=== PATIENT | female | born 1960 | race African-American/Black ===

== ENCOUNTER 2018-03-26 11:24 | Inpatient (IN) | payer MEDICARE, MEDICAID ==
[~2018-03-26] VITALS: Ht 152.4 cm; Wt 93.0 kg
[2018-03-26 11:45] VITALS: BP 105/52
--- NOTE | 2018-03-26 11:50 | NUR ---
ED Nurse Note: Patient walked into ED c/o of upper back pain due to cough, patient states taht he has been having a cough for the past 4 days and that her mucus was "dark and blood stained" patient is alert and oriented x4, ambulatory with a steady gait, vSS
--- NOTE | 2018-03-26 13:17 | Diagnostic Imaging Report ---
Indication: Dyspnea Comparison: None A single view chest radiograph was obtained. Findings: Patchy airspace opacities in the lungs noted and perihilar and basilar aspects. Heart is enlarged. There is a prominent interstitium and vascularity as well. Bones are unremarkable. Pacemaker noted on the left. IMPRESSION: Pulmonary vascular congestion demonstrated. Perihilar and basilar airspace opacities may be related to CHF or due to superimposed pneumonia. Follow-up and clinical correlation needed.
[2018-03-26] MEDS: Albuterol/Ipratropium 3ml neb HHN SCH ×4 (13:40→14:15)
[2018-03-26] MEDS ORDERED: Promethazine Plain 6.25mg/5ml ORAL ONE (14:00)
--- NOTE | 2018-03-26 15:00 | NUR ---
ED Nurse Note: Dr. Oneill aware of patient's potassium of 3.3
[2018-03-26 15:01] LABS: HEMATOCRIT 37.6 % (37.0-47.0); HEMOGLOBIN 12.4 G/DL (12.0-16.0); MEAN CORPUSCULAR VOLUME 94 FL (80-99); PLATELET COUNT 96 K/UL (150-450); RED BLOOD COUNT 3.99 M/UL (4.20-5.40); WHITE BLOOD COUNT 5.8 K/UL (4.8-10.8)
[2018-03-26 15:19] LABS: ANION GAP 11 mmol/L (5-15); BLOOD UREA NITROGEN 16 mg/dL (7-18); CALCIUM 8.6 MG/DL (8.5-10.1); CARBON DIOXIDE 25 MMOL/L (21-32); CHLORIDE 101 MMOL/L (98-107); CREATININE 1.2 MG/DL (0.55-1.30); POTASSIUM 3.3 MMOL/L (3.5-5.1); SODIUM 137 MMOL/L (136-145)
[2018-03-26 15:32] LABS: ALANINE AMINOTRANSFERASE 1404 U/L (12-78); ALBUMIN 3.4 G/DL (3.4-5.0); ALBUMIN/GLOBULIN RATIO 0.8 (1.0-2.7); ALKALINE PHOSPHATASE 136 U/L (46-116); ASPARTATE AMINO TRANSFERASE 2496 U/L (15-37); BILIRUBIN,TOTAL 0.9 MG/DL (0.2-1.0); CREATINE KINASE 274 U/L (26-308)
[2018-03-26] MEDS ORDERED: Ketorolac 30mg Inj IV ONE (15:45)
--- NOTE | 2018-03-26 16:15 | Cardiac Electrophysiology PN ---
Subjective Subjective [id number] Objective Last 24 Hour Vital Signs Date Time Temp Pulse Resp B/P (MAP) Pulse Ox O2 Delivery O2 Flow Rate FiO2 03/26/18 14:27 78 18 98 Room Air 03/26/18 14:07 74 18 96 Room Air 03/26/18 14:07 74 18 96 Room Air 03/26/18 13:52 63 18 97 Room Air 03/26/18 13:51 63 18 97 Room Air 03/26/18 13:40 63 18 96 Room Air 03/26/18 13:37 63 18 Room Air 21 03/26/18 11:50 62 18 Room Air 03/26/18 11:45 98.4 65 18 105/52 94 Room Air 03/26/18 11:43 98.4 62 18 98/51 94 Room Air Laboratory Tests Test 03/26/18 14:45 White Blood Count 5.8 K/UL (4.8-10.8) Red Blood Count 3.99 M/UL (4.20-5.40) L Hemoglobin 12.4 G/DL (12.0-16.0) Hematocrit 37.6 % (37.0-47.0) Mean Corpuscular Volume 94 FL (80-99) Mean Corpuscular Hemoglobin 31.1 PG (27.0-31.0) H Mean Corpuscular Hemoglobin Concent 33.0 G/DL (32.0-36.0) Red Cell Distribution Width 14.0 % (11.6-14.8) Platelet Count 96 K/UL (150-450) L Mean Platelet Volume 9.0 FL (6.5-10.1) Neutrophils (%) (Auto) % (45.0-75.0) Lymphocytes (%) (Auto) % (20.0-45.0) Monocytes (%) (Auto) % (1.0-10.0) Eosinophils (%) (Auto) % (0.0-3.0) Basophils (%) (Auto) % (0.0-2.0) Differential Total Cells Counted 100 Neutrophils % (Manual) 60 % (45-75) Lymphocytes % (Manual) 29 % (20-45) Monocytes % (Manual) 5 % (1-10) Eosinophils % (Manual) 2 % (0-3) Basophils % (Manual) 0 % (0-2) Band Neutrophils 4 % (0-8) Platelet Estimate Decreased L Platelet Morphology Normal Red Blood Cell Morphology Normal Sodium Level 137 MMOL/L (136-145) Potassium Level 3.3 MMOL/L (3.5-5.1) L Chloride Level 101 MMOL/L (98-107) Carbon Dioxide Level 25 MMOL/L (21-32) Anion Gap 11 mmol/L (5-15) Blood Urea Nitrogen 16 mg/dL (7-18) Creatinine 1.2 MG/DL (0.55-1.30) Estimat Glomerular Filtration Rate 56.2 mL/min (>60) Glucose Level 103 MG/DL (74-106) Calcium Level 8.6 MG/DL (8.5-10.1) Total Bilirubin 0.9 MG/DL (0.2-1.0) Aspartate Amino Transf (AST/SGOT) 2496 U/L (15-37) H Alanine Aminotransferase (ALT/SGPT) 1404 U/L (12-78) H Alkaline Phosphatase 136 U/L (46-116) H Total Creatine Kinase 274 U/L (26-308) Troponin I 0.003 ng/mL (0.000-0.056) Pro-B-Type Natriuretic Peptide 3097 pg/mL (0-125) H Total Protein 7.7 G/DL (6.4-8.2) Albumin 3.4 G/DL (3.4-5.0) Globulin 4.3 g/dL Albumin/Globulin Ratio 0.8 (1.0-2.7) Yusuf Obando MD Mar 26, 2018 16:15
--- NOTE | 2018-03-26 16:31 | Emergency Room Report ---
History of Present Illness General Chief Complaint: Upper Respiratory Illness Present Illness HPI 57-year-old female presents to the emergency department complaining of cough, wheezing, shortness of breath with history of COPD, CHF and diabetes. 8/10 in severity pain only when coughing. pt. reports chills but denies fevers. She states that she has an albuterol inhaler at home but it has not been helping. Denies LE edema. Reports mucus/sputum production. denies CP or palpitations. Allergies: Coded Allergies: CODEINE (Verified Allergy, Unknown, Itching, 03/26/18) Patient History Past Medical History: see triage record, CHF Past Surgical History: none Pertinent Family History: none Now: No Reviewed Nursing Documentation: PMH: Agreed; PSxH: Agreed Nursing Documentation-PMH Hx Hypertension: Yes Hx COPD: Yes Hx 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 Review of Systems All Other Systems: negative except mentioned in HPI Physical Exam Vital Signs Date Time Temp Pulse Resp B/P (MAP) Pulse Ox O2 Delivery O2 Flow Rate FiO2 03/26/18 11:43 98.4 62 18 98/51 94 Room Air 03/26/18 13:37 21 Sp02 EP Interpretation: reviewed, normal General Appearance: no apparent distress, alert, GCS 15, non-toxic Head: normocephalic, atraumatic Eyes: bilateral eye normal inspection, bilateral eye PERRL ENT: hearing grossly normal, normal voice Neck: full range of motion Respiratory: chest non-tender, no rhonchi, speaking full sentences, wheezing Cardiovascular #1: regular rate, rhythm, no edema, normal capillary refill Musculoskeletal: back normal, gait/station normal, normal range of motion, non- tender Neurologic: alert, oriented x3, responsive, motor strength/tone normal, sensory intact, speech normal, grossly normal Psychiatric: judgement/insight normal Skin: normal color, no rash, warm/dry, well hydrated Lymphatic: no adenopathy Medical Decision Making PA Attestation Dr. Oneill is my supervising Physician whom patient management has been discussed with. Diagnostic Impression: Primary Impression: CHF (congestive heart failure) Qualified Codes: I50.9 - Heart failure, unspecified Additional Impression: Elevated LFTs ER Course 57-year-old female presents to the emergency department complaining of cough, wheezing, shortness of breath with history of COPD, CHF and diabetes. 8/10 in severity pain only when coughing. pt. reports chills but denies fevers. She states that she has an albuterol inhaler at home but it has not been helping. Denies LE edema. Reports mucus/sputum production. denies CP or palpitations. Ddx considered but are not limited to NH, PE, atelectasis, CHF, asthma, anxiety, hyper-ventilation syndrome, pneumonia, costochondritis, chest wall pain, No acute pulmonary or cardiac causes at this time patient is in no acute distress her oxygen saturation is within normal limits, patient is not in any respiratory distress at this time Vital signs: are WNL, pt. is afebrile-- BP is on the Low end. H&PE are most consistent with: CHF VS. PNA ORDERS: - CBC: unremarkable -CMP: elevated LFT's , potassium 3.3, - BNP: elevated Troponin: WNL CK: 3097 EKG: no acute ST changes noted. -CXR: ED INTERVENTIONS: -Duo Nebs x 3 -Lasix 20mg IV Cardiology Consult DISPOSITION: at this time pt. will be admitted to for CHF Dr. Capps agreed to admit the pt. and to continue pt. care management. Labs Test 03/26/18 14:45 03/26/18 19:00 White Blood Count 5.8 K/UL (4.8-10.8) Red Blood Count 3.99 M/UL (4.20-5.40) Hemoglobin 12.4 G/DL (12.0-16.0) Hematocrit 37.6 % (37.0-47.0) Mean Corpuscular Volume 94 FL (80-99) Mean Corpuscular Hemoglobin 31.1 PG (27.0-31.0) Mean Corpuscular Hemoglobin Concent 33.0 G/DL (32.0-36.0) Red Cell Distribution Width 14.0 % (11.6-14.8) Platelet Count 96 K/UL (150-450) Mean Platelet Volume 9.0 FL (6.5-10.1) Neutrophils (%) (Auto) % (45.0-75.0) Lymphocytes (%) (Auto) % (20.0-45.0) Monocytes (%) (Auto) % (1.0-10.0) Eosinophils (%) (Auto) % (0.0-3.0) Basophils (%) (Auto) % (0.0-2.0) Differential Total Cells Counted 100 Neutrophils % (Manual) 60 % (45-75) Lymphocytes % (Manual) 29 % (20-45) Monocytes % (Manual) 5 % (1-10) Eosinophils % (Manual) 2 % (0-3) Basophils % (Manual) 0 % (0-2) Band Neutrophils 4 % (0-8) Platelet Estimate Decreased Platelet Morphology Normal Red Blood Cell Morphology Normal Prothrombin Time 12.3 SEC (9.30-11.50) Prothromb Time International Ratio 1.2 (0.9-1.1) Activated Partial Thromboplast Time 35 SEC (23-33) Sodium Level 137 MMOL/L (136-145) Potassium Level 3.3 MMOL/L (3.5-5.1) Chloride Level 101 MMOL/L (98-107) Carbon Dioxide Level 25 MMOL/L (21-32) Anion Gap 11 mmol/L (5-15) Blood Urea Nitrogen 16 mg/dL (7-18) Creatinine 1.2 MG/DL (0.55-1.30) Estimat Glomerular Filtration Rate 56.2 mL/min (>60) Glucose Level 103 MG/DL (74-106) Calcium Level 8.6 MG/DL (8.5-10.1) Total Bilirubin 0.9 MG/DL (0.2-1.0) Aspartate Amino Transf (AST/SGOT) 2496 U/L (15-37) Alanine Aminotransferase (ALT/SGPT) 1404 U/L (12-78) Alkaline Phosphatase 136 U/L (46-116) Total Creatine Kinase 274 U/L (26-308) Pro-B-Type Natriuretic Peptide 3097 pg/mL (0-125) Total Protein 7.7 G/DL (6.4-8.2) Albumin 3.4 G/DL (3.4-5.0) Globulin 4.3 g/dL Albumin/Globulin Ratio 0.8 (1.0-2.7) Troponin I 0.017 ng/mL (0.000-0.056) EKG Diagnostic Results EP Interpretation: Dr. Oneill Rate: normal - 74 Rhythm: NSR ST Segments: no acute changes ASA given to the pt in ED: No PA Scribe Text This Interpretation was scribed by LLOYD Monterroso. Chest X-Ray Diagnostic Results Chest X-Ray Diagnostic Results : Chest X-Ray Ordered: Yes # of Views/Limited/Complete: 1 View Indication: Shortness of Breath EP Interpretation: Yes PA Xray: Interpretation reviewed, by supervising MD, and agrees with findings. Interpretation: no effusion, no pneumothorax, other - interstitial infiltrates -patchy bilaterally, suggestive of CHF Impression: Other - abnormal Electronically Signed by: Grace Monterroso PA-C Last Vital Signs Date Time Temp Pulse Resp B/P (MAP) Pulse Ox O2 Delivery O2 Flow Rate FiO2 03/26/18 14:27 78 18 98 Room Air 03/26/18 13:37 21 03/26/18 11:45 98.4 105/52 Disposition: ADMITTED INPATIENT Condition: Serious Physician Consult: Soniya Referrals: NON PHYSICIAN (PCP) Grace Monterroso Mar 26, 2018 16:31
[2018-03-26 16:32] LABS: INR 1.2 (0.9-1.1)
[2018-03-26] MEDS ORDERED: Levofloxacin 750mg tab ORAL ONE (16:45)
--- NOTE | 2018-03-26 16:46 | NUR ---
NURSE NOTES: paged dr Mares re pt episodes of restlessness by removing nasal cannula and bipap mask. Per Dr Padilla notify pulmonology if they will give prn sedative or what to do with pt restlessness. Addendum: 03/26/18 at 1724 by LESA MOHAMUD RN disregard this note: wrong patient
--- NOTE | 2018-03-26 16:50 | NUR ---
ED Nurse Note: Patient's temperature was 100.0, LLOYD Edwards notified and aware
[2018-03-26 16:53] VITALS: BP 107/73
[2018-03-26] MEDS ORDERED: UNOBMED (16:57)
[2018-03-26] MEDS ORDERED: Albuterol/Ipratropium 3ml neb HHN PRN (17:00)
--- NOTE | 2018-03-26 17:00 | NUR ---
ED Nurse Note: gave report to FRIDA Phan patient was transported to tele
--- NOTE | 2018-03-26 17:24 | History and Physical ---
History of Present Illness General Date patient seen: Mar 26, 2018 Time patient seen: 17:00 Reason for Hospitalization: Upper Respiratory Illness Present Illness HPI 67-year-old female presents to the emergency department complaining of cough, productive of blood sputum, wheezing, shortness of breath with history of COPD, CHF s/p AICD, diabetes. She reports chills but denies fevers. She states that she has an albuterol inhaler at home but it has not been helping. Denies LE edema. In ED she was felt to acute CHF exacerbation and referred for admission. FHx: No premature CAD Social: Former smoker Allergies: Coded Allergies: CODEINE (Verified Allergy, Unknown, Itching, 03/26/18) Medication History Miscellaneous Medications Unable to Obtain Medications (Unable To Obtain Meds), (Reported) Patient History Healthcare decision maker Resuscitation status Advanced Directive on File Review of Systems Constitutional: Reports: chills; Denies: fever Eye: Denies: eye pain, blurred vision ENT: Denies: ear pain, ear discharge Respiratory: Reports: cough, orthopnea, shortness of breath Cardiovascular: Denies: chest pain, edema Gastrointestinal: Denies: abdominal pain, constipation Genitourinary: Denies: discharge, dysuria Musculoskeletal: Denies: back pain Skin: Denies: rash Neurological: Denies: headache, numbness Endocrine: Denies: excessive sweating Hematologic/Lymphatic: Denies: anemia Physical Exam General Appearance: no apparent distress, alert HEENT: normocephalic, atraumatic Neck: normal alignment, supple Respiratory/Chest: no respiratory distress, other - Bibasilar rales, normal work of breathing Cardiovascular/Chest: normal rate, regular rhythm, regularly irregular Abdomen: normal bowel sounds, non tender, soft Extremities: normal range of motion, non-tender Skin Exam: normal pigmentation 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, no motor/sensory deficits, alert Last 24 Hour Vital Signs Date Time Temp Pulse Resp B/P (MAP) Pulse Ox O2 Delivery O2 Flow Rate FiO2 03/26/18 16:53 100.0 75 18 107/73 98 Room Air 03/26/18 14:27 78 18 98 Room Air 03/26/18 14:07 74 18 96 Room Air 03/26/18 14:07 74 18 96 Room Air 03/26/18 13:52 63 18 97 Room Air 03/26/18 13:51 63 18 97 Room Air 03/26/18 13:40 63 18 96 Room Air 03/26/18 13:37 63 18 Room Air 21 03/26/18 11:50 62 18 Room Air 03/26/18 11:45 98.4 65 18 105/52 94 Room Air 03/26/18 11:43 98.4 62 18 98/51 94 Room Air Laboratory Tests Test 03/26/18 14:45 White Blood Count 5.8 K/UL (4.8-10.8) Red Blood Count 3.99 M/UL (4.20-5.40) L Hemoglobin 12.4 G/DL (12.0-16.0) Hematocrit 37.6 % (37.0-47.0) Mean Corpuscular Volume 94 FL (80-99) Mean Corpuscular Hemoglobin 31.1 PG (27.0-31.0) H Mean Corpuscular Hemoglobin Concent 33.0 G/DL (32.0-36.0) Red Cell Distribution Width 14.0 % (11.6-14.8) Platelet Count 96 K/UL (150-450) L Mean Platelet Volume 9.0 FL (6.5-10.1) Neutrophils (%) (Auto) % (45.0-75.0) Lymphocytes (%) (Auto) % (20.0-45.0) Monocytes (%) (Auto) % (1.0-10.0) Eosinophils (%) (Auto) % (0.0-3.0) Basophils (%) (Auto) % (0.0-2.0) Differential Total Cells Counted 100 Neutrophils % (Manual) 60 % (45-75) Lymphocytes % (Manual) 29 % (20-45) Monocytes % (Manual) 5 % (1-10) Eosinophils % (Manual) 2 % (0-3) Basophils % (Manual) 0 % (0-2) Band Neutrophils 4 % (0-8) Platelet Estimate Decreased L Platelet Morphology Normal Red Blood Cell Morphology Normal Prothrombin Time 12.3 SEC (9.30-11.50) H Prothromb Time International Ratio 1.2 (0.9-1.1) H Activated Partial Thromboplast Time 35 SEC (23-33) H Sodium Level 137 MMOL/L (136-145) Potassium Level 3.3 MMOL/L (3.5-5.1) L Chloride Level 101 MMOL/L (98-107) Carbon Dioxide Level 25 MMOL/L (21-32) Anion Gap 11 mmol/L (5-15) Blood Urea Nitrogen 16 mg/dL (7-18) Creatinine 1.2 MG/DL (0.55-1.30) Estimat Glomerular Filtration Rate 56.2 mL/min (>60) Glucose Level 103 MG/DL (74-106) Calcium Level 8.6 MG/DL (8.5-10.1) Total Bilirubin 0.9 MG/DL (0.2-1.0) Aspartate Amino Transf (AST/SGOT) 2496 U/L (15-37) H Alanine Aminotransferase (ALT/SGPT) 1404 U/L (12-78) H Alkaline Phosphatase 136 U/L (46-116) H Total Creatine Kinase 274 U/L (26-308) Troponin I Pending Pro-B-Type Natriuretic Peptide 3097 pg/mL (0-125) H Total Protein 7.7 G/DL (6.4-8.2) Albumin 3.4 G/DL (3.4-5.0) Globulin 4.3 g/dL Albumin/Globulin Ratio 0.8 (1.0-2.7) L Height (Feet): 5 Weight (Pounds): 205 Medications Current Medications Medications (Trade) Dose Ordered Sig/Arvind Route PRN Reason Start Time Stop Time Status Last Admin Dose Admin Albuterol/ Ipratropium (Albuterol/ Ipratropium) 3 ml Q4H PRN HHN Shortness of Breath 03/26/18 17:00 03/31/18 16:59 Carvedilol (Coreg) 3.125 mg EVERY 12 HOURS ORAL 03/26/18 21:00 04/25/18 20:59 Dextrose (Dextrose 50%) 25 ml Q30M PRN IV Hypoglycemia 03/26/18 17:00 04/25/18 16:59 Dextrose (Dextrose 50%) 50 ml Q30M PRN IV Hypoglycemia 03/26/18 17:00 04/25/18 16:59 Furosemide (Lasix) 40 mg EVERY 12 HOURS IV 03/26/18 21:00 04/25/18 20:59 Lisinopril (Zestril) 10 mg DAILY ORAL 03/27/18 09:00 04/26/18 08:59 Spironolactone (Aldactone) 25 mg DAILY ORAL 03/27/18 09:00 04/26/18 08:59 Assessment/Plan Assessment/Plan #Acute on chronic systolic CHF admit to medical service, telemetry Cardiology eval appreciated Lasix IV Coreg Aldactone monitor I&O Daily weights 2 gram sodium diet check TTE #Mild hypokalemia -monitor electrolytes while on #Abnormal LFTs #Suspected congestive hepatopathy -monitor LFTs -avoid hepatotoxic meds #Morbid Obesity #Reported history of DMII -Awaiting med recon -start ISS for now -Diabetic diet VTE PPx heparin SC Full Code Time spent was 75 minutes for admitting the patient, 35 minutes in face to face time with the patient Declan Crespo MD Mar 26, 2018 17:24
--- NOTE | 2018-03-26 17:24 | NUR ---
NURSE NOTES: received pt awake alert, no distress. no sob. denies pain. per pt her medical hx is htn, cva, defibrillator, pt denies hx of cancer or diabetes. pt does not remember meds but says her daughter will bring them. relayed to Dr Mullins (upon his rounds) re pt denies having DM and that her blood glucose level (lab) is wnl. ambulatory, sacral is intact.
--- NOTE | 2018-03-26 17:26 | NUR ---
NURSE NOTES: pt refuses flu vaccine and states that she is due for pna vaccine - relayed to Dr Mullins who said "we'll deal with it later , it's not urgent right now"
--- NOTE | 2018-03-26 18:09 | Cardiology Report ---
APPROVED REPORT EXAM: Two-dimensional and M-mode echocardiogram with Doppler and color Doppler. INDICATION Congestive Heart Failure Normal left ventricular chamber size, systolic function and wall motion. Left ventricular ejection fraction estimated to be 55-60 %. Borderline left ventricular hypertrophy by -2D. No evidence of pericardial effusion. Mild left atrial enlargement. Right cardiac chamber sizes are within normal limits. Focal aortic valve sclerosis with adequate cusp excursion. Thickened mitral valve leaflets with normal excursion. Mitral annulus and aortic root calcification. Pulmonic valve not well visualized. Normal tricuspid valve structure. IVC at normal size with physiologic collapse. A color flow and spectral Doppler study was performed and revealed: Mild mitral regurgitation. Mitral inflow indicates normal left ventricular diastolic function. Mild tricuspid regurgitation. Tricuspid systolic velocities suggests peak right ventricular systolic pressure of 39 mmHg, consistent with mild pulmonary hypertension.
--- NOTE | 2018-03-26 18:45 | Consultation ---
DATE OF CONSULTATION: 03/26/2018 CARDIOLOGY CONSULTATION CONSULTING PHYSICIAN: Yusuf Byrnes M.D. REFERRING PHYSICIAN: Elizabet Capps M.D. REASON FOR CONSULTATION: Exacerbation of congestive heart failure as well as shortness of breath and evaluation of the patient's defibrillator. HISTORY OF PRESENT ILLNESS: The patient is a 57-year-old -[place] lady with history of hypertension, congestive heart failure, and history of pulmonary embolism, who was on blood thinner in the past as well as history of defibrillator implantation about a year ago at [facility] in [place]. The patient presented to the emergency room for increasing shortness of breath and cough. The patient stated that she also is having hemoptysis. The patient was admitted and Cardiology consultation was requested for further evaluation and management. At the time of my evaluation, the patient is short of breath. REVIEW OF SYSTEMS: Review of systems was negative other than what is mentioned in the history of present illness. PAST MEDICAL HISTORY: As mentioned above. FAMILY HISTORY: Noncontributory. SOCIAL HISTORY: Does not smoke or drink alcohol. PHYSICAL EXAMINATION: VITAL SIGNS: Blood pressure of 105/52, pulse 65, and respirations 18. HEAD AND NECK: Shows mild JVD. LUNGS: Decreased breath sounds. CARDIOVASCULAR: Shows regular S1 and S2 with no gallop. ABDOMEN: Soft. EXTREMITIES: Trace pitting edema. Defibrillator in left subclavian. DIAGNOSTIC DATA: Her EKG shows sinus rhythm with nonspecific ST-T wave abnormalities. LABORATORY DATA: Labs show white count of 5.8, hemoglobin 12.4, hematocrit 37.2, and platelet count 96,000. Sodium 137, potassium 3.7, BUN of 16, creatinine 1.2, and glucose of 103. AST is 2500 and ALT is 1400. Alk phos is 136. Troponin is negative. BNP is more than 3000. ASSESSMENT AND PLAN: 1. Exacerbation of congestive heart failure. BNP of more than 3000. We will get an echocardiogram for ejection fraction and wall motion abnormality. We will start the patient on Lasix 40 mg IV b.i.d. until further information is available. 2. Status post defibrillator implantation. The patient does not know the brand of the defibrillator. We will try to find the brand and interrogate the ICD for further evaluation. 3. Cough and hemoptysis. The patient stated that she was on blood thinner, but she is not sure. She is a very poor historian. The patient stated that she used to take warfarin in the past. We do not have the INR on admission yet. I would . 4. elevated AST and ALT in the thousands. Hepatitis panel is pending, but could be secondary to hepatic congestion and secondary to congestive heart failure. 5. Possible pneumonia. The patient's temperature is 98.4. White count is within normal range. Thank you very much for allowing me to participate in the care of this patient. Please do not hesitate to contact me for any questions regarding my evaluation. Yusuf Byrnes M.D. DR: AZALIA JOB#: [id number] CC:
--- NOTE | 2018-03-26 19:38 | NUR ---
HAND-OFF: Report given to LEROY GALICIA.
--- NOTE | 2018-03-26 19:40 | NUR ---
NURSE NOTES: Got report from Sylvester GALICIA. Pt in stable condition. Denies any pain. No s/s of distress or discomfort noted. Pt resting in bed comfortably. Bed in low and locked position call light within reach, bedside table within reach. continue to monitor.
[2018-03-26 20:00] VITALS: BP 105/57
[2018-03-26] MEDS: NovoLOG Insulin Flexpen SUBQ SCH (21:00)
[2018-03-27] MEDS: traMADol 50mg tab ORAL PRN ×2 (00:28→10:04)
[2018-03-27 00:43] VITALS: BP 111/72
[2018-03-27 03:50] LABS: HEMATOCRIT 35.9 % (37.0-47.0); HEMOGLOBIN 12.2 G/DL (12.0-16.0); MEAN CORPUSCULAR VOLUME 93 FL (80-99); PLATELET COUNT 93 K/UL (150-450); RED BLOOD COUNT 3.87 M/UL (4.20-5.40); WHITE BLOOD COUNT 3.2 K/UL (4.8-10.8)
[2018-03-27 03:59] LABS: INR 1.3 (0.9-1.1)
[2018-03-27 04:35] LABS: ALANINE AMINOTRANSFERASE 2117 U/L (12-78); ALBUMIN 3.1 G/DL (3.4-5.0); ALBUMIN/GLOBULIN RATIO 0.7 (1.0-2.7); ALKALINE PHOSPHATASE 142 U/L (46-116); ANION GAP 9 mmol/L (5-15); ASPARTATE AMINO TRANSFERASE 1743 U/L (15-37); BLOOD UREA NITROGEN 23 mg/dL (7-18); CALCIUM 8.6 MG/DL (8.5-10.1); CARBON DIOXIDE 28 MMOL/L (21-32); CHLORIDE 102 MMOL/L (98-107); CHOLESTEROL 159 MG/DL (< 200); CREATININE 1.3 MG/DL (0.55-1.30); HDL CHOLESTEROL 78 MG/DL (40-60); POTASSIUM 3.4 MMOL/L (3.5-5.1); SODIUM 138 MMOL/L (136-145); TRIGLYCERIDES 38 MG/DL (30-150)
[2018-03-27 04:52] VITALS: BP 108/62
[2018-03-27] MEDS ORDERED: LORazepam 1mg tab ORAL ONE (05:30)
[2018-03-27] MEDS: NovoLOG Insulin Flexpen SUBQ SCH ×4 (06:00→21:00)
--- NOTE | 2018-03-27 07:36 | NUR ---
NURSE NOTES: Received bedside report from Cecilio GALICIA. Pt. in bed, awake, a/o x 4. No sign of distress. Denies pain at present. IV at right hand #[id number]. in placed SL. Bed in low position, locked. Call light within reach. Will cont. to monitor.
--- NOTE | 2018-03-27 07:40 | NUR ---
HAND-OFF: Report given to Jodi Alexander. Endorsed plan of care.
[2018-03-27 08:00] VITALS: BP 102/58
[2018-03-27] MEDS: Lisinopril 10mg tab ORAL SCH (09:00)
[2018-03-27] MEDS: Spironolactone 25mg tab ORAL SCH (09:18)
--- NOTE | 2018-03-27 09:53 | NUR ---
REHAB MED PT NOTE CONSULT ADIS DAWSON, PATIENT WILL BENEFIT FROM SKILLED PT DURING STAY FOR RETURN TO [facility]. RECOMMEND HOME PT AT [facility]. PLAN OF CARE INITIATED. RACHEAL RAYMOND PT DPT Addendum: 03/27/18 at 0954 by RACHEAL RAYMOND PT Amended: Links added. Addendum: 03/28/18 at 0752 by RACHEAL RAYMOND PT patient safe with min a with nursing staff for bathroom needs and recommend out of bed to chair all meals with nursing assist, PT to follow.
--- NOTE | 2018-03-27 10:04 | Cardiac Electrophysiology PN ---
Assessment/Plan Assessment/Plan 1. Exacerbation of congestive heart failure due to diastolic dysfunction. BNP of more than 3000. Echo EF 55%. On Lasix 40 mg IV b.i.d. Coreg, Lisinopril and Aldactone 2. Status post defibrillator implantation. The patient does not know the brand of the defibrillator. We will try to find the brand and interrogate the ICD for further evaluation. 3. Cough and hemoptysis. The patient stated that she was on blood thinner, but she is not sure. She is a very poor historian. INR only 1.3 4. Elevated AST and ALT in the thousands. Hepatitis panel is pending, but could be secondary to hepatic congestion and secondary to congestive heart failure. 5. Possible pneumonia. The patient's temperature is 98.4. White count is within normal range. Subjective Subjective Feeling better. No CP Objective Last 24 Hour Vital Signs Date Time Temp Pulse Resp B/P (MAP) Pulse Ox O2 Delivery O2 Flow Rate FiO2 03/27/18 09:00 66 102/58 03/27/18 09:00 102/58 03/27/18 08:00 99.5 66 21 102/58 (73) 96 03/27/18 04:55 60 03/27/18 04:52 98.2 63 18 108/62 (77) 96 03/27/18 00:59 96.5 03/27/18 00:55 59 03/27/18 00:43 96.5 60 18 111/72 (85) 96 03/26/18 23:20 Nasal Cannula 2.0 03/26/18 21:00 60 105/57 03/26/18 20:00 98.9 60 18 105/57 (73) 95 03/26/18 20:00 62 03/26/18 17:30 Room Air 03/26/18 17:03 100.0 03/26/18 16:53 100.0 75 18 107/73 98 Room Air 03/26/18 15:00 99.5 76 18 127/73 98 Room Air 03/26/18 14:27 78 18 98 Room Air 03/26/18 14:07 74 18 96 Room Air 03/26/18 14:07 74 18 96 Room Air 03/26/18 13:52 63 18 97 Room Air 03/26/18 13:51 63 18 97 Room Air 03/26/18 13:40 63 18 96 Room Air 03/26/18 13:37 63 18 Room Air 21 03/26/18 11:50 62 18 Room Air 03/26/18 11:45 98.4 65 18 105/52 94 Room Air 03/26/18 11:43 98.4 62 18 98/51 94 Room Air Laboratory Tests Test 03/26/18 14:45 03/26/18 19:00 03/27/18 03:00 White Blood Count 5.8 K/UL (4.8-10.8) 3.2 K/UL (4.8-10.8) L Red Blood Count 3.99 M/UL (4.20-5.40) L 3.87 M/UL (4.20-5.40) L Hemoglobin 12.4 G/DL (12.0-16.0) 12.2 G/DL (12.0-16.0) Hematocrit 37.6 % (37.0-47.0) 35.9 % (37.0-47.0) L Mean Corpuscular Volume 94 FL (80-99) 93 FL (80-99) Mean Corpuscular Hemoglobin 31.1 PG (27.0-31.0) H 31.5 PG (27.0-31.0) H Mean Corpuscular Hemoglobin Concent 33.0 G/DL (32.0-36.0) 33.9 G/DL (32.0-36.0) Red Cell Distribution Width 14.0 % (11.6-14.8) 14.0 % (11.6-14.8) Platelet Count 96 K/UL (150-450) L 93 K/UL (150-450) L Mean Platelet Volume 9.0 FL (6.5-10.1) 8.7 FL (6.5-10.1) Neutrophils (%) (Auto) % (45.0-75.0) % (45.0-75.0) Lymphocytes (%) (Auto) % (20.0-45.0) % (20.0-45.0) Monocytes (%) (Auto) % (1.0-10.0) % (1.0-10.0) Eosinophils (%) (Auto) % (0.0-3.0) % (0.0-3.0) Basophils (%) (Auto) % (0.0-2.0) % (0.0-2.0) Differential Total Cells Counted 100 Neutrophils % (Manual) 60 % (45-75) Lymphocytes % (Manual) 29 % (20-45) Monocytes % (Manual) 5 % (1-10) Eosinophils % (Manual) 2 % (0-3) Basophils % (Manual) 0 % (0-2) Band Neutrophils 4 % (0-8) Platelet Estimate Decreased L Platelet Morphology Normal Red Blood Cell Morphology Normal Prothrombin Time 12.3 SEC (9.30-11.50) H 13.1 SEC (9.30-11.50) H Prothromb Time International Ratio 1.2 (0.9-1.1) H 1.3 (0.9-1.1) H Activated Partial Thromboplast Time 35 SEC (23-33) H Sodium Level 137 MMOL/L (136-145) 138 MMOL/L (136-145) Potassium Level 3.3 MMOL/L (3.5-5.1) L 3.4 MMOL/L (3.5-5.1) L Chloride Level 101 MMOL/L (98-107) 102 MMOL/L (98-107) Carbon Dioxide Level 25 MMOL/L (21-32) 28 MMOL/L (21-32) Anion Gap 11 mmol/L (5-15) 9 mmol/L (5-15) Blood Urea Nitrogen 16 mg/dL (7-18) 23 mg/dL (7-18) H Creatinine 1.2 MG/DL (0.55-1.30) 1.3 MG/DL (0.55-1.30) Estimat Glomerular Filtration Rate 56.2 mL/min (>60) 51.4 mL/min (>60) Glucose Level 103 MG/DL (74-106) 95 MG/DL (74-106) Calcium Level 8.6 MG/DL (8.5-10.1) 8.6 MG/DL (8.5-10.1) Total Bilirubin 0.9 MG/DL (0.2-1.0) 1.0 MG/DL (0.2-1.0) Aspartate Amino Transf (AST/SGOT) 2496 U/L (15-37) H 1743 U/L (15-37) H Alanine Aminotransferase (ALT/SGPT) 1404 U/L (12-78) H 2117 U/L (12-78) H Alkaline Phosphatase 136 U/L (46-116) H 142 U/L (46-116) H Total Creatine Kinase 274 U/L (26-308) Troponin I 0.009 ng/mL (0.000-0.056) 0.017 ng/mL (0.000-0.056) 0.002 ng/mL (0.000-0.056) Pro-B-Type Natriuretic Peptide 3097 pg/mL (0-125) H 952 pg/mL (0-125) H Total Protein 7.7 G/DL (6.4-8.2) 7.3 G/DL (6.4-8.2) Albumin 3.4 G/DL (3.4-5.0) 3.1 G/DL (3.4-5.0) L Globulin 4.3 g/dL 4.2 g/dL Albumin/Globulin Ratio 0.8 (1.0-2.7) L 0.7 (1.0-2.7) L Triglycerides Level 38 MG/DL (30-150) Cholesterol Level 159 MG/DL (< 200) LDL Cholesterol 73 mg/dL (<100) HDL Cholesterol 78 MG/DL (40-60) H Cholesterol/HDL Ratio 2.0 (3.3-4.4) L Thyroid Stimulating Hormone (TSH) 0.241 uiU/mL (0.358-3.740) Digoxin Level < 0.2 NG/ML (0.9-2.0) L Objective HEAD AND NECK: Mild JVD. LUNGS: Decreased breath sounds. CARDIOVASCULAR: Shows regular S1 and S2 with no gallop. ABDOMEN: Soft. EXTREMITIES: Trace pitting edema. Defibrillator in left subclavian. Yusuf Byrnes MD Mar 27, 2018 10:04
[2018-03-27] MEDS ORDERED: ATORVASTATIN CA40 MG ORAL (11:53)
[2018-03-27] MEDS ORDERED: FUROSEMIDE20 M1 ORAL (11:53)
[2018-03-27] MEDS ORDERED: AMIODARONE HCL400 M1 ORAL (11:53)
[2018-03-27] MEDS ORDERED: METOPROLOL TART25 MG ORAL (11:53)
[2018-03-27] MEDS ORDERED: LYRICA75 M1 ORAL (11:53)
[2018-03-27] MEDS ORDERED: NORVASC2.5 MG ORAL (11:53)
[2018-03-27] MEDS ORDERED: ELIQUIS5 MG PO (11:53)
[2018-03-27 12:00] VITALS: BP 109/55
[2018-03-27] MEDS: Amiodarone 200mg tab ORAL SCH ×2 (12:22→20:52)
[2018-03-27] MEDS: Lyrica 50mg cap ORAL SCH ×2 (12:22→19:06)
--- NOTE | 2018-03-27 14:33 | General Progress Note ---
Assessment/Plan Assessment/Plan #Acute on chronic systolic CHF #history of atrial fibrillation continue telemetry Cardiology eval appreciated Lasix IV Coreg Aldactone lisinopril amiodarone Eliquis monitor I&O Daily weights 2 gram sodium diet TTE pending #COPD, mild exacerbation -start Duoneb -hold systemic steroids for now #Mild hypokalemia -monitor electrolytes while on #Abnormal LFTs #Suspected congestive hepatopathy -monitor LFTs -avoid hepatotoxic meds #Morbid Obesity #Reported history of DMII -start ISS for now -Diabetic diet VTE PPx heparin SC Full Code Subjective Date patient seen: Mar 27, 2018 Time patient seen: 11:00 Constitutional: Denies: chills, diaphoresis, fever HEENT: Denies: eye pain Cardiovascular: Denies: chest pain, edema Respiratory: Reports: cough, shortness of breath Gastrointestinal/Abdominal: Denies: abdomen distended Genitourinary: Denies: burning Endocrine: Denies: excessive sweating Hematologic/Lymphatic: Denies: anemia Allergies: Coded Allergies: CODEINE (Verified Allergy, Unknown, Itching, 03/26/18) Subjective Medicine followup for acute CHF and possible COPD. Complains of chest congestion today. Objective Last 24 Hour Vital Signs Date Time Temp Pulse Resp B/P (MAP) Pulse Ox O2 Delivery O2 Flow Rate FiO2 03/27/18 12:04 74 18 Nasal Cannula 2.0 28 03/27/18 12:03 2.0 28 03/27/18 12:03 94 Nasal Cannula 2.0 28 03/27/18 12:02 74 2 93 Nasal Cannula 2.0 28 03/27/18 09:00 66 102/58 03/27/18 09:00 102/58 03/27/18 08:00 99.5 66 21 102/58 (73) 96 03/27/18 04:55 60 03/27/18 04:52 98.2 63 18 108/62 (77) 96 03/27/18 00:59 96.5 03/27/18 00:55 59 03/27/18 00:43 96.5 60 18 111/72 (85) 96 03/26/18 23:20 Nasal Cannula 2.0 03/26/18 21:00 60 105/57 03/26/18 20:00 98.9 60 18 105/57 (73) 95 03/26/18 20:00 62 2/6/19 17:30 Room Air 03/26/18 17:03 100.0 03/26/18 16:53 100.0 75 18 107/73 98 Room Air 03/26/18 15:00 99.5 76 18 127/73 98 Room Air Laboratory Tests 03/26/18 14:45: White Blood Count 5.8, Red Blood Count 3.99L, Hemoglobin 12.4, Hematocrit 37.6, Mean Corpuscular Volume 94, Mean Corpuscular Hemoglobin 31.1H, Mean Corpuscular Hemoglobin Concent 33.0, Red Cell Distribution Width 14.0, Platelet Count 96L, Mean Platelet Volume 9.0, Neutrophils (%) (Auto) , Lymphocytes (%) (Auto) , Monocytes (%) (Auto) , Eosinophils (%) (Auto) , Basophils (%) (Auto) , Differential Total Cells Counted 100, Neutrophils % (Manual) 60, Lymphocytes % ( Manual) 29, Monocytes % (Manual) 5, Eosinophils % (Manual) 2, Basophils % ( Manual) 0, Band Neutrophils 4, Platelet Estimate DecreasedL, Platelet Morphology Normal, Red Blood Cell Morphology Normal, Prothrombin Time 12.3H, Prothromb Time International Ratio 1.2H, Activated Partial Thromboplast Time 35H , Sodium Level 137, Potassium Level 3.3L, Chloride Level 101, Carbon Dioxide Level 25, Anion Gap 11, Blood Urea Nitrogen 16, Creatinine 1.2, Estimat Glomerular Filtration Rate 56.2, Glucose Level 103, Calcium Level 8.6, Total Bilirubin 0.9, Aspartate Amino Transf (AST/SGOT) 2496H, Alanine Aminotransferase (ALT/SGPT) 1404H, Alkaline Phosphatase 136H, Total Creatine Kinase 274, Troponin I 0.009, Pro-B-Type Natriuretic Peptide 3097H, Total Protein 7.7, Albumin 3.4, Globulin 4.3, Albumin/Globulin Ratio 0.8L 03/26/18 19:00: Troponin I 0.017 03/27/18 03:00: White Blood Count 3.2L, Red Blood Count 3.87L, Hemoglobin 12.2, Hematocrit 35.9L , Mean Corpuscular Volume 93, Mean Corpuscular Hemoglobin 31.5H, Mean Corpuscular Hemoglobin Concent 33.9, Red Cell Distribution Width 14.0, Platelet Count 93L, Mean Platelet Volume 8.7, Neutrophils (%) (Auto) , Lymphocytes (%) ( Auto) , Monocytes (%) (Auto) , Eosinophils (%) (Auto) , Basophils (%) (Auto) , Prothrombin Time 13.1H, Prothromb Time International Ratio 1.3H, Sodium Level 138, Potassium Level 3.4L, Chloride Level 102, Carbon Dioxide Level 28, Anion Gap 9, Blood Urea Nitrogen 23H, Creatinine 1.3, Estimat Glomerular Filtration Rate 51.4, Glucose Level 95, Calcium Level 8.6, Total Bilirubin 1.0, Aspartate Amino Transf (AST/SGOT) 1743H, Alanine Aminotransferase (ALT/SGPT) 2117H, Alkaline Phosphatase 142H, Troponin I 0.002, Pro-B-Type Natriuretic Peptide 952H , Total Protein 7.3, Albumin 3.1L, Globulin 4.2, Albumin/Globulin Ratio 0.7L, Triglycerides Level 38, Cholesterol Level 159, LDL Cholesterol 73, HDL Cholesterol 78H, Cholesterol/HDL Ratio 2.0L, Thyroid Stimulating Hormone (TSH) 0.241L, Digoxin Level < 0.2L Height (Feet): 5 Height (Inches): 0.00 Weight (Pounds): 205 General Appearance: no apparent distress, alert EENT: PERRL/EOMI, normal ENT inspection Neck: non-tender, normal alignment Cardiovascular: normal peripheral pulses, normal rate, regular rhythm Respiratory/Chest: chest wall non-tender, rhonchi - bilaterally Abdomen: normal bowel sounds, non tender, soft Extremities: normal range of motion 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
[2018-03-27] MEDS: Albuterol/Ipratropium 3ml neb HHN SCH ×3 (15:24→23:55)
[2018-03-27 16:00] VITALS: BP 102/58
[2018-03-27 20:00] VITALS: BP 106/66
--- NOTE | 2018-03-27 20:03 | NUR ---
HAND-OFF: Report given to Jeannine GALICIA. Pt. remain stable.
--- NOTE | 2018-03-27 20:10 | NUR ---
NURSE NOTES: received report from Renae RN, pt AAx4, resting on the bed receiving breathing tx. no s/s of acute distress noted. pt complaining of 5/10 pain. checked IV site patent and flush. bed at the lowest position, breaks on, side rails x3. call aid within reach. will continue plan of care.
[2018-03-27] MEDS: Atorvastatin 20mg tab ORAL SCH (20:51)
[2018-03-27] MEDS ORDERED: Eliquis 2.5mg tablet ORAL SCH (21:00)
--- NOTE | 2018-03-27 23:36 | NUR ---
NURSE NOTES: Called Dr. Capps's exchange regarding patient's request for Ativan. Awaiting callback.
--- NOTE | 2018-03-27 23:39 | NUR ---
NURSE NOTES: Received order from Dr. Barba for Ativan 0.5 mg PO q6hr PRN for anxiety. Noted and carried out.
[2018-03-27] MEDS ORDERED: LORazepam 0.5mg tab ORAL PRN (23:45)
[2018-03-28] VITALS: BP 116/66
--- NOTE | 2018-03-28 00:41 | NUR ---
NURSE NOTES: pt with 101.9 fever. pt refusing cool measures education provided about risk pt still refusing. Tylenol PRN was administered. will continue to monitor
--- NOTE | 2018-03-28 03:15 | NUR ---
NURSE NOTES: pt resting on bed. no s/s of acute distress noted. fall precautions on place. will continue to monitor.
[2018-03-28 04:00] VITALS: BP 103/66
[2018-03-28] MEDS: Albuterol/Ipratropium 3ml neb HHN SCH ×6 (04:27→23:52)
[2018-03-28] MEDS: NovoLOG Insulin Flexpen SUBQ SCH ×4 (06:08→21:23)
[2018-03-28 06:40] LABS: HEMOGLOBIN 12.3 G/DL (12.0-16.0); MEAN CORPUSCULAR VOLUME 94 FL (80-99); PLATELET COUNT 91 K/UL (150-450); RED BLOOD COUNT 3.95 M/UL (4.20-5.40); RED CELL DISTRIBUTION WIDTH 14.2 % (11.6-14.8); WHITE BLOOD COUNT 2.2 K/UL (4.8-10.8)
[2018-03-28 07:12] LABS: ALANINE AMINOTRANSFERASE 2850 U/L (12-78); ALBUMIN 3.1 G/DL (3.4-5.0); ALBUMIN/GLOBULIN RATIO 0.7 (1.0-2.7); ALKALINE PHOSPHATASE 163 U/L (46-116); ANION GAP 10 mmol/L (5-15); BILIRUBIN,TOTAL 1.4 MG/DL (0.2-1.0); BLOOD UREA NITROGEN 22 mg/dL (7-18); CALCIUM 8.6 MG/DL (8.5-10.1); CARBON DIOXIDE 28 MMOL/L (21-32); CHLORIDE 101 MMOL/L (98-107); CREATININE 1.5 MG/DL (0.55-1.30); POTASSIUM 3.6 MMOL/L (3.5-5.1); SODIUM 138 MMOL/L (136-145)
--- NOTE | 2018-03-28 07:15 | NUR ---
NURSE NOTES: Received report from FRIDA Paez. Pt AAOx4, resting on the bed. No s/s of acute distress noted. Pt states of 6/10 pain of back pain. Checked IV site patent and flush. Bed at the lowest position, breaks on, side rails x3. Call light within reach. Will continue plan of care.
--- NOTE | 2018-03-28 07:18 | NUR ---
HAND-OFF: Report given to FRIDA Meyer. Patient is asleep lying semi-spear's; resting comfortably. In stable condition.
[2018-03-28 07:57] LABS: ASPARTATE AMINO TRANSFERASE 5434 U/L (15-37)
[2018-03-28 08:00] VITALS: BP 122/75
[2018-03-28] MEDS: Lyrica 50mg cap ORAL SCH (08:26)
[2018-03-28] MEDS: Lyrica 25mg cap ORAL SCH ×3 (08:50→18:20)
[2018-03-28] MEDS: Spironolactone 25mg tab ORAL SCH (09:08)
[2018-03-28] MEDS: traMADol 50mg tab ORAL PRN (09:08)
[2018-03-28] MEDS: Amiodarone 200mg tab ORAL SCH (09:09)
[2018-03-28] MEDS: Lisinopril 10mg tab ORAL SCH (09:09)
--- NOTE | 2018-03-28 09:19 | NUR ---
NURSE NOTES: Spoke to Dr. Coffman about WBC 2.2. is aware and will review.
--- NOTE | 2018-03-28 10:36 | Consultation ---
History of Present Illness General Chief Complaint: Upper Respiratory Illness Present Illness HPI 57-year-old female former smoker with a history of anxiety and depression, chronic obstructive pulmonary disease, congestive heart failure, automatic implanted cardioverter defibrillator, diabetes, and prior stroke, who presented with anxiety and depressive sxs. the pt stated that she does not sleep. the pt has pain as well which may contribute to depression and anxiety Allergies: Coded Allergies: CODEINE (Verified Allergy, Unknown, Itching, 03/26/18) Medication History Scheduled Amiodarone Hcl* (Amiodarone Hcl*), 200 MG ORAL EVERY 12 HOURS, (Reported) Amlodipine Besylate (Norvasc), 2 MG ORAL DAILY, (Reported) Atorvastatin Calcium* (Atorvastatin Calcium*), 40 MG ORAL BEDTIME, (Reported) Furosemide* (Lasix*), 20 MG ORAL DAILY, (Reported) Metoprolol Tartrate* (Metoprolol Tartrate*), 25 MG ORAL EVERY 12 HOURS, ( Reported) Pregabalin* (Lyrica*), 50 MG ORAL THREE TIMES A DAY, (Reported) Miscellaneous Medications Apixaban (Eliquis), 5 MG PO, (Reported) Unable to Obtain Medications (Unable To Obtain Meds), (Reported) Patient History History Provided By: Patient, Medical Record, PMD Healthcare decision maker Resuscitation status Full Code Advanced Directive on File Past Medical/Surgical History Past Medical/Surgical History: (1) Upper respiratory infection (2) Transaminitis (3) Shock liver (4) CHF (congestive heart failure) (5) Elevated LFTs (6) Acute renal failure (7) Obesity (8) Pacemaker (9) PNA (pneumonia) Review of Systems Psychiatric: Reports: prior hx, anxiety, depressed feelings, emotional problems Physical Exam General Appearance: no apparent distress, alert, obese Neurologic: oriented x 3, responsive, depressed affect Last 24 Hour Vital Signs Date Time Temp Pulse Resp B/P (MAP) Pulse Ox O2 Delivery O2 Flow Rate FiO2 03/28/18 09:09 122/75 03/28/18 09:08 74 122/75 03/28/18 08:00 98.8 74 18 122/75 (91) 98 03/28/18 07:45 72 20 95 Nasal Cannula 2.0 28 03/28/18 07:33 68 18 93 Nasal Cannula 2.0 28 03/28/18 07:33 93 Nasal Cannula 2.0 28 03/28/18 07:33 68 18 Nasal Cannula 2.0 28 03/28/18 07:33 Nasal Cannula 2.0 28 03/28/18 04:35 70 20 95 Nasal Cannula 2.0 28 03/28/18 04:25 71 20 91 Nasal Cannula 2.0 28 03/28/18 04:00 98.0 18 103/66 (78) 98 03/28/18 04:00 66 03/28/18 01:12 99.3 03/28/18 00:01 66 20 94 Nasal Cannula 2.0 28 03/28/18 00:00 101.9 20 116/66 (83) 97 03/28/18 00:00 62 03/27/18 23:52 77 20 90 Nasal Cannula 2.0 28 03/27/18 21:00 Nasal Cannula 2.0 03/27/18 20:50 70 106/66 03/27/18 20:45 70 20 97 Nasal Cannula 2.0 28 03/27/18 20:34 76 20 93 Nasal Cannula 2.0 28 03/27/18 20:34 Nasal Cannula 2.0 28 03/27/18 20:33 93 Nasal Cannula 2.0 28 03/27/18 20:32 68 20 Nasal Cannula 2.0 28 03/27/18 20:00 71 03/27/18 20:00 99.0 72 18 106/66 (79) 92 03/27/18 16:00 76 03/27/18 16:00 98.9 82 20 102/58 (73) 96 03/27/18 15:42 76 03/27/18 15:32 75 20 98 Nasal Cannula 2.0 28 03/27/18 15:30 98.9 03/27/18 15:26 72 20 95 Nasal Cannula 2.0 28 03/27/18 15:00 101.4 03/27/18 12:06 71 20 98 Nasal Cannula 2.0 28 03/27/18 12:04 74 18 Nasal Cannula 2.0 28 03/27/18 12:03 2.0 28 03/27/18 12:03 94 Nasal Cannula 2.0 28 03/27/18 12:02 74 2 93 Nasal Cannula 2.0 28 03/27/18 12:00 99.7 74 22 109/55 (73) 93 Intake and Output 03/27/18 03/28/18 19:00 07:00 Intake Total 240 ml Balance 240 ml Intake Oral 240 ml # Voids 1 2 Laboratory Tests Test 03/28/18 05:40 White Blood Count 2.2 K/UL (4.8-10.8) L Red Blood Count 3.95 M/UL (4.20-5.40) L Hemoglobin 12.3 G/DL (12.0-16.0) Hematocrit 37.0 % (37.0-47.0) Mean Corpuscular Volume 94 FL (80-99) Mean Corpuscular Hemoglobin 31.2 PG (27.0-31.0) H Mean Corpuscular Hemoglobin Concent 33.4 G/DL (32.0-36.0) Red Cell Distribution Width 14.2 % (11.6-14.8) Platelet Count 91 K/UL (150-450) L Mean Platelet Volume 10.4 FL (6.5-10.1) H Neutrophils (%) (Auto) % (45.0-75.0) Lymphocytes (%) (Auto) % (20.0-45.0) Monocytes (%) (Auto) % (1.0-10.0) Eosinophils (%) (Auto) % (0.0-3.0) Basophils (%) (Auto) % (0.0-2.0) Differential Total Cells Counted 100 Neutrophils % (Manual) 63 % (45-75) Lymphocytes % (Manual) 22 % (20-45) Monocytes % (Manual) 8 % (1-10) Eosinophils % (Manual) 1 % (0-3) Basophils % (Manual) 0 % (0-2) Band Neutrophils 6 % (0-8) Platelet Estimate Decreased L Platelet Morphology Normal Red Blood Cell Morphology Normal Sodium Level 138 MMOL/L (136-145) Potassium Level 3.6 MMOL/L (3.5-5.1) Chloride Level 101 MMOL/L (98-107) Carbon Dioxide Level 28 MMOL/L (21-32) Anion Gap 10 mmol/L (5-15) Blood Urea Nitrogen 22 mg/dL (7-18) H Creatinine 1.5 MG/DL (0.55-1.30) H Estimat Glomerular Filtration Rate 43.5 mL/min (>60) Glucose Level 117 MG/DL (74-106) H Calcium Level 8.6 MG/DL (8.5-10.1) Total Bilirubin 1.4 MG/DL (0.2-1.0) H Direct Bilirubin 1.0 MG/DL (0.0-0.3) H Gamma Glutamyl Transpeptidase 603 U/L (5-85) H Aspartate Amino Transf (AST/SGOT) 5434 U/L (15-37) H Alanine Aminotransferase (ALT/SGPT) 2850 U/L (12-78) H Alkaline Phosphatase 163 U/L (46-116) H Total Protein 7.4 G/DL (6.4-8.2) Albumin 3.1 G/DL (3.4-5.0) L Globulin 4.3 g/dL Albumin/Globulin Ratio 0.7 (1.0-2.7) L Height (Feet): 5 Height (Inches): 0.00 Weight (Pounds): 205 Medications Current Medications Medications (Trade) Dose Ordered Sig/Arvind Route PRN Reason Start Time Stop Time Status Last Admin Dose Admin Albuterol/ Ipratropium (Albuterol/ Ipratropium) 3 ml Q4H PRN HHN Shortness of Breath 03/26/18 17:00 03/31/18 16:59 03/27/18 12:00 Albuterol/ Ipratropium (Albuterol/ Ipratropium) 3 ml Q4HRT HHN 03/27/18 15:00 04/01/18 14:59 03/28/18 07:33 Amiodarone HCl (Cordarone) 200 mg EVERY 12 HOURS ORAL 03/27/18 11:56 04/26/18 11:55 03/28/18 09:09 Atorvastatin Calcium (Lipitor) 40 mg BEDTIME ORAL 03/27/18 21:00 04/26/18 20:59 03/27/18 20:51 Carvedilol (Coreg) 3.125 mg EVERY 12 HOURS ORAL 03/26/18 21:00 04/25/18 20:59 03/28/18 09:08 Dextrose (Dextrose 50%) 25 ml Q30M PRN IV Hypoglycemia 03/26/18 17:00 04/25/18 16:59 Dextrose (Dextrose 50%) 50 ml Q30M PRN IV Hypoglycemia 03/26/18 17:00 04/25/18 16:59 Diphenhydramine HCl (Benadryl) 25 mg Q6H PRN ORAL Itching 03/27/18 00:30 04/26/18 00:29 Furosemide (Lasix) 40 mg EVERY 12 HOURS IV 03/26/18 21:00 04/25/18 20:59 03/28/18 09:09 Insulin Aspart (NovoLOG) BEFORE MEALS AND HS SUBQ 03/26/18 21:00 04/25/18 20:59 03/28/18 06:08 Levofloxacin 150 ml @ 100 mls/hr Q48H IVPB 03/27/18 16:30 04/03/18 16:29 03/27/18 16:05 Lisinopril (Zestril) 10 mg DAILY ORAL 03/27/18 09:00 04/26/18 08:59 03/28/18 09:09 Lorazepam (Ativan) 0.5 mg Q6H PRN ORAL For Anxiety 03/27/18 23:45 04/03/18 23:44 03/28/18 00:27 Pregabalin (Lyrica) 25 mg TID ORAL 03/28/18 09:00 04/27/18 08:59 Spironolactone (Aldactone) 25 mg DAILY ORAL 03/27/18 09:00 04/26/18 08:59 03/28/18 09:08 Tramadol HCl (Ultram) 50 mg Q12H PRN ORAL Pain 03/28/18 09:00 04/04/18 08:59 03/28/18 09:08 Assessment/Plan Problem List: (1) MDD (major depressive disorder), recurrent episode, moderate ICD Codes: F33.1 - Major depressive disorder, recurrent, moderate SNOMED: 33035935, [id number] (2) Anxiety disorder ICD Codes: F41.9 - Anxiety disorder, unspecified SNOMED: 885900482 Assessment/Plan ativan prn lexapro 10mg po qam provided anatoliy/Demetri Lucas MD Mar 28, 2018 10:36
--- NOTE | 2018-03-28 11:47 | Diagnostic Imaging Report ---
Indication:Abdominal pain Technique: Grayscale and duplex Doppler imaging of the abdomen performed. Comparison: None Findings: The liver is unremarkable. The gallbladder is absent. The demonstrated part of the pancreas, aorta and IVC show no abnormalities although limited in visualization due to bowel gas. The spleen is normal in size. There is no biliary ductal dilatation identified. Doppler evaluation of the main portal vein shows patency. CBD is 8 mm. There is a 2 cm cyst within the left kidney. There is no ascites. No hydronephrosis seen. Impression: No acute findings. Status post cholecystectomy Left renal cyst
[2018-03-28 12:00] VITALS: BP 102/62
--- NOTE | 2018-03-28 12:14 | General Progress Note ---
Assessment/Plan Assessment/Plan #Acute on chronic systolic CHF #history of atrial fibrillation continue telemetry Cardiology following Lasix IV Coreg Aldactone lisinopril amiodarone Eliquis held due to abnormal LFTs monitor I&O Daily weights Repeat CXR 2 gram sodium diet TTE pending #COPD, mild exacerbation -start Duoneb -hold systemic steroids for now #Mild hypokalemia -monitor electrolytes while on #Abnormal LFTs #Suspected congestive hepatopathy -worsening LFTs -RUQ US unremarkable -GI consulted -Eliquis held per pharmacy recs -Tramadol dose reduced per pharmacy recs #Morbid Obesity #Reported history of DMII -start ISS for now -Diabetic diet VTE PPx heparin SC Full Code Subjective Date patient seen: Mar 28, 2018 Time patient seen: 12:00 Constitutional: Reports: malaise HEENT: Denies: eye pain Cardiovascular: Denies: chest pain, edema Respiratory: Reports: cough, SOB with excertion Gastrointestinal/Abdominal: Denies: abdomen distended, abdominal pain Allergies: Coded Allergies: CODEINE (Verified Allergy, Unknown, Itching, 03/26/18) Subjective Medicine followup for acute CHF and possible COPD. Reports feeling achy. Noted to have worsening LFTs Objective Last 24 Hour Vital Signs Date Time Temp Pulse Resp B/P (MAP) Pulse Ox O2 Delivery O2 Flow Rate FiO2 03/28/18 10:45 Nasal Cannula 2.0 28 03/28/18 10:45 Nasal Cannula 2.0 28 03/28/18 09:38 98.8 03/28/18 09:09 122/75 03/28/18 09:08 74 122/75 03/28/18 09:00 Nasal Cannula 2.0 03/28/18 08:00 98.8 74 18 122/75 (91) 98 03/28/18 07:57 69 03/28/18 07:45 72 20 95 Nasal Cannula 2.0 28 03/28/18 07:33 68 18 93 Nasal Cannula 2.0 28 03/28/18 07:33 93 Nasal Cannula 2.0 28 03/28/18 07:33 68 18 Nasal Cannula 2.0 28 03/28/18 07:33 Nasal Cannula 2.0 28 03/28/18 04:35 70 20 95 Nasal Cannula 2.0 28 03/28/18 04:25 71 20 91 Nasal Cannula 2.0 28 03/28/18 04:00 98.0 18 103/66 (78) 98 03/28/18 04:00 66 03/28/18 01:12 99.3 03/28/18 00:01 66 20 94 Nasal Cannula 2.0 28 03/28/18 00:00 101.9 20 116/66 (83) 97 03/28/18 00:00 62 03/27/18 23:52 77 20 90 Nasal Cannula 2.0 28 03/27/18 21:00 Nasal Cannula 2.0 03/27/18 20:50 70 106/66 03/27/18 20:45 70 20 97 Nasal Cannula 2.0 28 03/27/18 20:34 76 20 93 Nasal Cannula 2.0 28 03/27/18 20:34 Nasal Cannula 2.0 28 03/27/18 20:33 93 Nasal Cannula 2.0 28 03/27/18 20:32 68 20 Nasal Cannula 2.0 28 03/27/18 20:00 71 03/27/18 20:00 99.0 72 18 106/ (79) 92 03/27/18 16:00 76 03/27/18 16:00 98.9 82 20 102/58 (73) 96 03/27/18 15:42 76 03/27/18 15:32 75 20 98 Nasal Cannula 2.0 28 03/27/18 15:30 98.9 03/27/18 15:26 72 20 95 Nasal Cannula 2.0 28 03/27/18 15:00 101.4 Intake and Output 03/27/18 03/28/18 19:00 07:00 Intake Total 240 ml Balance 240 ml Intake Oral 240 ml # Voids 1 2 Laboratory Tests 03/28/18 05:40: White Blood Count 2.2L, Red Blood Count 3.95L, Hemoglobin 12.3, Hematocrit 37.0 , Mean Corpuscular Volume 94, Mean Corpuscular Hemoglobin 31.2H, Mean Corpuscular Hemoglobin Concent 33.4, Red Cell Distribution Width 14.2, Platelet Count 91L, Mean Platelet Volume 10.4H, Neutrophils (%) (Auto) , Lymphocytes (%) (Auto) , Monocytes (%) (Auto) , Eosinophils (%) (Auto) , Basophils (%) (Auto) , Differential Total Cells Counted 100, Neutrophils % (Manual) 63, Lymphocytes % ( Manual) 22, Monocytes % (Manual) 8, Eosinophils % (Manual) 1, Basophils % ( Manual) 0, Band Neutrophils 6, Platelet Estimate DecreasedL, Platelet Morphology Normal, Red Blood Cell Morphology Normal, Sodium Level 138, Potassium Level 3.6, Chloride Level 101, Carbon Dioxide Level 28, Anion Gap 10, Blood Urea Nitrogen 22H, Creatinine 1.5H, Estimat Glomerular Filtration Rate 43.5, Glucose Level 117H, Calcium Level 8.6, Total Bilirubin 1.4H, Direct Bilirubin 1.0H, Gamma Glutamyl Transpeptidase 603H, Aspartate Amino Transf (AST/ SGOT) 5434H, Alanine Aminotransferase (ALT/SGPT) 2850H, Alkaline Phosphatase 163H, Total Protein 7.4, Albumin 3.1L, Globulin 4.3, Albumin/Globulin Ratio 0.7L , Alpha Fetoprotein [Pending], Hepatitis A IgM Antibody [Pending], Hepatitis B Surface Antigen [Pending], Hepatitis B Core IgM Antibody [Pending], Hepatitis C Antibody [Pending] Height (Feet): 5 Height (Inches): 0.00 Weight (Pounds): 205 General Appearance: alert Neck: non-tender, normal alignment Cardiovascular: normal peripheral pulses, normal rate, regular rhythm Respiratory/Chest: expiratory wheezing Abdomen: non tender, soft Declan Crespo MD Mar 28, 2018 12:14
--- NOTE | 2018-03-28 12:36 | NUR ---
NURSE NOTES: Spoke to Dr. Coffman About temperature 102.2 F and patient feeling warm. Orders received and entered.
--- NOTE | 2018-03-28 12:43 | GI Initial Consult Note ---
History of Present Illness General Date patient seen: Mar 28, 2018 Time patient seen: 12:35 Reason for Hospitalization: Upper Respiratory Illness Referring physician: CORINNA DIEGO Reason for Consultation: Transaminitis Present Illness HPI 67-year-old female presents to the emergency department complaining of cough, wheezing, shortness of breath with history of COPD, CHF and diabetes. pt. reports chills but denies fevers. She states that she has an albuterol inhaler at home but it has not been helping. Denies LE edema. GI consulted for transaminitis. Patient seen, awake alert and oriented x4 no apparent distress. Denies any abdominal pain at this time. According to the patient, she recently traveled to [place] approximately 1 week ago. She developed diarrhea and nausea which has improved today. She presents today with shortness of breath, most likely from COPD exacerbation. Labs reviewed; patient presents with severe transaminitis and overall elevated LFTs. The patient denies any tobacco use, denies any drug use, denies any alcohol use. The patient has no history of endoscopic or colonoscopy. Home Meds Reported Medications Pregabalin* (LYRICA*) 75 Mg Capsule, 50 MG ORAL THREE TIMES A DAY, CAP 03/27/18 Apixaban (ELIQUIS) 5 Mg Tablet, 5 MG PO, TAB 03/27/18 Metoprolol Tartrate* (METOPROLOL TARTRATE*) 25 Mg Tablet, 25 MG ORAL EVERY 12 HOURS, TAB 03/27/18 Amiodarone Hcl* (AMIODARONE HCL*) 400 Mg Tablet, 200 MG ORAL EVERY 12 HOURS, TAB 03/27/18 Furosemide* (LASIX*) 20 Mg Tablet, 20 MG ORAL DAILY, TAB 03/27/18 Amlodipine Besylate (Norvasc) 2.5 Mg Tablet, 2 MG ORAL DAILY, TAB 03/27/18 Atorvastatin Calcium* (ATORVASTATIN CALCIUM*) 40 Mg Tablet, 40 MG ORAL BEDTIME, TAB 03/27/18 Unable to Obtain Medications (UNABLE TO OBTAIN MEDS) 1 Ea Ea 03/26/18 Med list reviewed/reconciled: Yes Allergies: Coded Allergies: CODEINE (Verified Allergy, Unknown, Itching, 03/26/18) Patient History History Provided By: Patient, Medical Record H Narrative Past Medical History: see triage record Past Surgical History: none Pertinent Family History: none Now: No Reviewed Nursing Documentation: PMH: Agreed; PSxH: Agreed Nursing Documentation-PMH Hx Hypertension: Yes Hx COPD: Yes Hx 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 Social History: Denies: smoking, alcohol use, drug use, other Review of Systems All Other Systems: negative except mentioned in HPI Physical Exam Vital Signs Date Time Temp Pulse Resp B/P (MAP) Pulse Ox O2 Delivery O2 Flow Rate FiO2 03/26/18 11:43 98.4 62 18 98/51 94 Room Air 03/26/18 13:37 21 03/26/18 23:20 2.0 Sp02 EP Interpretation: reviewed, normal Labs Laboratory Tests Test 03/28/18 05:40 White Blood Count 2.2 K/UL (4.8-10.8) L Red Blood Count 3.95 M/UL (4.20-5.40) L Hemoglobin 12.3 G/DL (12.0-16.0) Hematocrit 37.0 % (37.0-47.0) Mean Corpuscular Volume 94 FL (80-99) Mean Corpuscular Hemoglobin 31.2 PG (27.0-31.0) H Mean Corpuscular Hemoglobin Concent 33.4 G/DL (32.0-36.0) Red Cell Distribution Width 14.2 % (11.6-14.8) Platelet Count 91 K/UL (150-450) L Mean Platelet Volume 10.4 FL (6.5-10.1) H Neutrophils (%) (Auto) % (45.0-75.0) Lymphocytes (%) (Auto) % (20.0-45.0) Monocytes (%) (Auto) % (1.0-10.0) Eosinophils (%) (Auto) % (0.0-3.0) Basophils (%) (Auto) % (0.0-2.0) Differential Total Cells Counted 100 Neutrophils % (Manual) 63 % (45-75) Lymphocytes % (Manual) 22 % (20-45) Monocytes % (Manual) 8 % (1-10) Eosinophils % (Manual) 1 % (0-3) Basophils % (Manual) 0 % (0-2) Band Neutrophils 6 % (0-8) Platelet Estimate Decreased L Platelet Morphology Normal Red Blood Cell Morphology Normal Sodium Level 138 MMOL/L (136-145) Potassium Level 3.6 MMOL/L (3.5-5.1) Chloride Level 101 MMOL/L (98-107) Carbon Dioxide Level 28 MMOL/L (21-32) Anion Gap 10 mmol/L (5-15) Blood Urea Nitrogen 22 mg/dL (7-18) H Creatinine 1.5 MG/DL (0.55-1.30) H Estimat Glomerular Filtration Rate 43.5 mL/min (>60) Glucose Level 117 MG/DL (74-106) H Calcium Level 8.6 MG/DL (8.5-10.1) Total Bilirubin 1.4 MG/DL (0.2-1.0) H Direct Bilirubin 1.0 MG/DL (0.0-0.3) H Gamma Glutamyl Transpeptidase 603 U/L (5-85) H Aspartate Amino Transf (AST/SGOT) 5434 U/L (15-37) H Alanine Aminotransferase (ALT/SGPT) 2850 U/L (12-78) H Alkaline Phosphatase 163 U/L (46-116) H Total Protein 7.4 G/DL (6.4-8.2) Albumin 3.1 G/DL (3.4-5.0) L Globulin 4.3 g/dL Albumin/Globulin Ratio 0.7 (1.0-2.7) L Alpha Fetoprotein Pending Hepatitis A IgM Antibody Pending Hepatitis B Surface Antigen Pending Hepatitis B Core IgM Antibody Pending Hepatitis C Antibody Pending General Appearance: well appearing, no apparent distress, alert Head: normocephalic EENT: PERRL/EOMI, normal ENT inspection Neck: supple Respiratory: normal breath sounds, no respiratory distress Cardiovascular: normal rate Gastrointestinal: normal inspection, non tender, soft, normal bowel sounds, non -distended Rectal: deferred Genitourinary: no CVA tenderness Musculoskeletal: normal inspection, back normal Neurologic: normal inspection, alert, oriented x3, responsive Psychiatric: normal inspection, judgement/insight normal, memory normal Skin: normal inspection, normal color, no rash, warm/dry, palpation normal, well hydrated Lymphatic: normal inspection, no adenopathy Current Medications Current Medications Medications (Trade) Dose Ordered Sig/Arvind Route PRN Reason Start Time Stop Time Status Last Admin Dose Admin Albuterol/ Ipratropium (Albuterol/ Ipratropium) 3 ml Q4H PRN HHN Shortness of Breath 03/26/18 17:00 03/31/18 16:59 03/27/18 12:00 Albuterol/ Ipratropium (Albuterol/ Ipratropium) 3 ml Q4HRT HHN 03/27/18 15:00 04/01/18 14:59 03/28/18 07:33 Amiodarone HCl (Cordarone) 200 mg EVERY 12 HOURS ORAL 03/27/18 11:56 04/26/18 11:55 03/28/18 09:09 Atorvastatin Calcium (Lipitor) 40 mg BEDTIME ORAL 03/27/18 21:00 04/26/18 20:59 03/27/18 20:51 Carvedilol (Coreg) 3.125 mg EVERY 12 HOURS ORAL 03/26/18 21:00 04/25/18 20:59 03/28/18 09:08 Dextrose (Dextrose 50%) 25 ml Q30M PRN IV Hypoglycemia 03/26/18 17:00 04/25/18 16:59 Dextrose (Dextrose 50%) 50 ml Q30M PRN IV Hypoglycemia 03/26/18 17:00 04/25/18 16:59 Diphenhydramine HCl (Benadryl) 25 mg Q6H PRN ORAL Itching 03/27/18 00:30 04/26/18 00:29 Furosemide (Lasix) 40 mg EVERY 12 HOURS IV 03/26/18 21:00 04/25/18 20:59 03/28/18 09:09 Insulin Aspart (NovoLOG) BEFORE MEALS AND HS SUBQ 03/26/18 21:00 04/25/18 20:59 03/28/18 06:08 Levofloxacin 150 ml @ 100 mls/hr Q48H IVPB 03/27/18 16:30 04/03/18 16:29 03/27/18 16:05 Lisinopril (Zestril) 10 mg DAILY ORAL 03/27/18 09:00 04/26/18 08:59 03/28/18 09:09 Lorazepam (Ativan) 1 mg Q6H PRN ORAL For Anxiety 03/28/18 11:45 04/04/18 11:44 Pregabalin (Lyrica) 25 mg TID ORAL 03/28/18 09:00 04/27/18 08:59 Spironolactone (Aldactone) 25 mg DAILY ORAL 03/27/18 09:00 04/26/18 08:59 03/28/18 09:08 Tramadol HCl (Ultram) 50 mg Q12H PRN ORAL Pain 03/28/18 09:00 04/04/18 08:59 03/28/18 09:08 GI: Plan Problems: (1) Shock liver (2) Transaminitis (3) Elevated LFTs (4) CHF (congestive heart failure) Plan Negative abdominal ultrasound Most likely liver shock due to ischemia Hepatitis panel to rule out any viral cause utox r/o drug induced Will consider autoimmune markers if necessary okay to advance diet trend LFTs fu pulmonary recs follow labs Discussed with Dr. Pate. Thank you for this patient referral, we will follow. The patient was seen and examined at bedside and all new and available data was reviewed in the patients chart. I agree with the above findings, impression and plan. (Patient seen earlier today. Signature stamp does not reflect patient encounter time.). - MD Ira VoCopper Springs East HospitalDaphne SPECIAL SERVICE REPRESENTATIVE Mar 28, 2018 12:43
--- NOTE | 2018-03-28 13:00 | NUR ---
Spoke to Dr. Byrnes. Orders were entered and property utilization manager is on case.
--- NOTE | 2018-03-28 13:13 | Diagnostic Imaging Report ---
Indication: Cough Comparison: 03/26/2018 A single view chest radiograph was obtained. Findings: Interstitial opacities are noted bilaterally with slightly prominent vascularity and heart size. In this regard there may be some mild improvement. There is a focus of airspace disease at the right lung base. This is more apparent currently. Left-sided pacemaker noted. IMPRESSION: Right basal infiltrate Mild interstitial edema may be present slightly improved since the last study. Correlate clinically.
--- NOTE | 2018-03-28 13:46 | Cardiac Electrophysiology PN ---
Assessment/Plan Assessment/Plan 1. Exacerbation of congestive heart failure. BNP of more than 3000. Echo EF 55%. On Lasix 40 mg IV b.i.d. Coreg, Lisinopril and Aldactone 2. Status post [employer] defibrillator implantation in 03/2017 On Amiodarone 200 bid 3. Cough and hemoptysis. Was on Eliquis at home that was DCed. 4. Elevated AST and ALT in the thousands. Hepatitis panel is pending, but could be secondary to hepatic congestion and secondary to congestive heart failure. 5. T 102.2 Blood Cx and CXR pending. On iv Levaquin Subjective Subjective Feeling better. No CP or SOB. Had T 102.2 Objective Last 24 Hour Vital Signs Date Time Temp Pulse Resp B/P (MAP) Pulse Ox O2 Delivery O2 Flow Rate FiO2 03/28/18 12:00 102.2 72 18 102/62 (75) 95 03/28/18 10:45 Nasal Cannula 2.0 28 03/28/18 10:45 Nasal Cannula 2.0 28 03/28/18 09:38 98.8 03/28/18 09:09 122/75 03/28/18 09:08 74 122/75 03/28/18 09:00 Nasal Cannula 2.0 03/28/18 08:00 98.8 74 18 122/75 (91) 98 03/28/18 07:57 69 03/28/18 07:45 72 20 95 Nasal Cannula 2.0 28 03/28/18 07:33 68 18 93 Nasal Cannula 2.0 28 03/28/18 07:33 93 Nasal Cannula 2.0 28 03/28/18 07:33 68 18 Nasal Cannula 2.0 28 03/28/18 07:33 Nasal Cannula 2.0 28 03/28/18 04:35 70 20 95 Nasal Cannula 2.0 28 03/28/18 04:25 71 20 91 Nasal Cannula 2.0 28 03/28/18 04:00 98.0 18 103/66 (78) 98 03/28/18 04:00 66 03/28/18 01:12 99.3 03/28/18 00:01 66 20 94 Nasal Cannula 2.0 28 03/28/18 00:00 101.9 20 116/66 (83) 97 03/28/18 00:00 62 03/27/18 23:52 77 20 90 Nasal Cannula 2.0 28 03/27/18 21:00 Nasal Cannula 2.0 03/27/18 20:50 70 106/66 03/27/18 20:45 70 20 97 Nasal Cannula 2.0 28 03/27/18 20:34 76 20 93 Nasal Cannula 2.0 28 03/27/18 20:34 Nasal Cannula 2.0 28 03/27/18 20:33 93 Nasal Cannula 2.0 28 03/27/18 20:32 68 20 Nasal Cannula 2.0 28 03/27/18 20:00 71 03/27/18 20:00 99.0 72 18 106/66 (79) 92 03/27/18 16:00 76 03/27/18 16:00 98.9 82 20 102/58 (73) 96 03/27/18 15:42 76 03/27/18 15:32 75 20 98 Nasal Cannula 2.0 28 03/27/18 15:30 98.9 03/27/18 15:26 72 20 95 Nasal Cannula 2.0 28 03/27/18 15:00 101.4 Intake and Output 03/27/18 03/28/18 19:00 07:00 Intake Total 240 ml Balance 240 ml Intake Oral 240 ml # Voids 1 2 Laboratory Tests Test 03/28/18 05:40 White Blood Count 2.2 K/UL (4.8-10.8) L Red Blood Count 3.95 M/UL (4.20-5.40) L Hemoglobin 12.3 G/DL (12.0-16.0) Hematocrit 37.0 % (37.0-47.0) Mean Corpuscular Volume 94 FL (80-99) Mean Corpuscular Hemoglobin 31.2 PG (27.0-31.0) H Mean Corpuscular Hemoglobin Concent 33.4 G/DL (32.0-36.0) Red Cell Distribution Width 14.2 % (11.6-14.8) Platelet Count 91 K/UL (150-450) L Mean Platelet Volume 10.4 FL (6.5-10.1) H Neutrophils (%) (Auto) % (45.0-75.0) Lymphocytes (%) (Auto) % (20.0-45.0) Monocytes (%) (Auto) % (1.0-10.0) Eosinophils (%) (Auto) % (0.0-3.0) Basophils (%) (Auto) % (0.0-2.0) Differential Total Cells Counted 100 Neutrophils % (Manual) 63 % (45-75) Lymphocytes % (Manual) 22 % (20-45) Monocytes % (Manual) 8 % (1-10) Eosinophils % (Manual) 1 % (0-3) Basophils % (Manual) 0 % (0-2) Band Neutrophils 6 % (0-8) Platelet Estimate Decreased L Platelet Morphology Normal Red Blood Cell Morphology Normal Sodium Level 138 MMOL/L (136-145) Potassium Level 3.6 MMOL/L (3.5-5.1) Chloride Level 101 MMOL/L (98-107) Carbon Dioxide Level 28 MMOL/L (21-32) Anion Gap 10 mmol/L (5-15) Blood Urea Nitrogen 22 mg/dL (7-18) H Creatinine 1.5 MG/DL (0.55-1.30) H Estimat Glomerular Filtration Rate 43.5 mL/min (>60) Glucose Level 117 MG/DL (74-106) H Calcium Level 8.6 MG/DL (8.5-10.1) Total Bilirubin 1.4 MG/DL (0.2-1.0) H Direct Bilirubin 1.0 MG/DL (0.0-0.3) H Gamma Glutamyl Transpeptidase 603 U/L (5-85) H Aspartate Amino Transf (AST/SGOT) 5434 U/L (15-37) H Alanine Aminotransferase (ALT/SGPT) 2850 U/L (12-78) H Alkaline Phosphatase 163 U/L (46-116) H Total Protein 7.4 G/DL (6.4-8.2) Albumin 3.1 G/DL (3.4-5.0) L Globulin 4.3 g/dL Albumin/Globulin Ratio 0.7 (1.0-2.7) L Alpha Fetoprotein Pending Hepatitis A IgM Antibody Pending Hepatitis B Surface Antigen Pending Hepatitis B Core IgM Antibody Pending Hepatitis C Antibody Pending Objective HEAD AND NECK: Mild JVD. LUNGS: Decreased breath sounds. CARDIOVASCULAR: Shows regular S1 and S2 with no gallop. ABDOMEN: Soft. EXTREMITIES: Trace pitting edema. ICD in left subclavian. Yusuf Byrnes MD Mar 28, 2018 13:46
--- NOTE | 2018-03-28 14:34 | Infectious Diseases Prog Note ---
Assessment/Plan Assessment/Plan Full consult to follow: A) 1) cap, sepsis, fevers, leukopenia, ? viral syndrome 2) elevated LFT's, ? hepatitis, ? cmv/ebv 3) pmh noted 4) allergies - codeine P) 1) rocephin, azithromycin, tamiflu 2) check sc, labs, bc, chest x-ray, serology 3) continue treatment per primary team 4) GI F/u 5) thank you Subjective Allergies: Coded Allergies: CODEINE (Verified Allergy, Unknown, Itching, 03/26/18) Objective Vital Signs Last 24 Hour Vital Signs Date Time Temp Pulse Resp B/P (MAP) Pulse Ox O2 Delivery O2 Flow Rate FiO2 03/28/18 12:00 102.2 72 18 102/62 (75) 95 03/28/18 11:52 62 03/28/18 10:45 Nasal Cannula 2.0 28 03/28/18 10:45 Nasal Cannula 2.0 28 03/28/18 09:38 98.8 03/28/18 09:09 122/75 03/28/18 09:08 74 122/75 03/28/18 09:00 Nasal Cannula 2.0 03/28/18 08:00 98.8 74 18 122/75 (91) 98 03/28/18 07:57 69 03/28/18 07:45 72 20 95 Nasal Cannula 2.0 28 03/28/18 07:33 68 18 93 Nasal Cannula 2.0 28 03/28/18 07:33 93 Nasal Cannula 2.0 28 03/28/18 07:33 68 18 Nasal Cannula 2.0 28 03/28/18 07:33 Nasal Cannula 2.0 28 03/28/18 04:35 70 20 95 Nasal Cannula 2.0 28 03/28/18 04:25 71 20 91 Nasal Cannula 2.0 28 03/28/18 04:00 98.0 18 103/66 (78) 98 03/28/18 04:00 66 03/28/18 01:12 99.3 03/28/18 00:01 66 20 94 Nasal Cannula 2.0 28 03/28/18 00:00 101.9 20 116/66 (83) 97 03/28/18 00:00 62 03/27/18 23:52 77 20 90 Nasal Cannula 2.0 28 03/27/18 21:00 Nasal Cannula 2.0 03/27/18 20:50 70 106/66 03/27/18 20:45 70 20 97 Nasal Cannula 2.0 28 03/27/18 20:34 76 20 93 Nasal Cannula 2.0 28 03/27/18 20:34 Nasal Cannula 2.0 28 03/27/18 20:33 93 Nasal Cannula 2.0 28 03/27/18 20:32 68 20 Nasal Cannula 2.0 28 03/27/18 20:00 71 03/27/18 20:00 99.0 72 18 106/66 (79) 92 03/27/18 16:00 76 03/27/18 16:00 98.9 82 20 102/58 (73) 96 03/27/18 15:42 76 03/27/18 15:32 75 20 98 Nasal Cannula 2.0 28 03/27/18 15:30 98.9 03/27/18 15:26 72 20 95 Nasal Cannula 2.0 28 03/27/18 15:00 101.4 Height (Feet): 5 Height (Inches): 0.00 Weight (Pounds): 205 Laboratory Tests Test 03/28/18 05:40 03/28/18 13:56 White Blood Count 2.2 K/UL (4.8-10.8) L Red Blood Count 3.95 M/UL (4.20-5.40) L Hemoglobin 12.3 G/DL (12.0-16.0) Hematocrit 37.0 % (37.0-47.0) Mean Corpuscular Volume 94 FL (80-99) Mean Corpuscular Hemoglobin 31.2 PG (27.0-31.0) H Mean Corpuscular Hemoglobin Concent 33.4 G/DL (32.0-36.0) Red Cell Distribution Width 14.2 % (11.6-14.8) Platelet Count 91 K/UL (150-450) L Mean Platelet Volume 10.4 FL (6.5-10.1) H Neutrophils (%) (Auto) % (45.0-75.0) Lymphocytes (%) (Auto) % (20.0-45.0) Monocytes (%) (Auto) % (1.0-10.0) Eosinophils (%) (Auto) % (0.0-3.0) Basophils (%) (Auto) % (0.0-2.0) Differential Total Cells Counted 100 Neutrophils % (Manual) 63 % (45-75) Lymphocytes % (Manual) 22 % (20-45) Monocytes % (Manual) 8 % (1-10) Eosinophils % (Manual) 1 % (0-3) Basophils % (Manual) 0 % (0-2) Band Neutrophils 6 % (0-8) Platelet Estimate Decreased L Platelet Morphology Normal Red Blood Cell Morphology Normal Sodium Level 138 MMOL/L (136-145) Potassium Level 3.6 MMOL/L (3.5-5.1) Chloride Level 101 MMOL/L (98-107) Carbon Dioxide Level 28 MMOL/L (21-32) Anion Gap 10 mmol/L (5-15) Blood Urea Nitrogen 22 mg/dL (7-18) H Creatinine 1.5 MG/DL (0.55-1.30) H Estimat Glomerular Filtration Rate 43.5 mL/min (>60) Glucose Level 117 MG/DL (74-106) H Calcium Level 8.6 MG/DL (8.5-10.1) Total Bilirubin 1.4 MG/DL (0.2-1.0) H Direct Bilirubin 1.0 MG/DL (0.0-0.3) H Gamma Glutamyl Transpeptidase 603 U/L (5-85) H Aspartate Amino Transf (AST/SGOT) 5434 U/L (15-37) H Alanine Aminotransferase (ALT/SGPT) 2850 U/L (12-78) H Alkaline Phosphatase 163 U/L (46-116) H Total Protein 7.4 G/DL (6.4-8.2) Albumin 3.1 G/DL (3.4-5.0) L Globulin 4.3 g/dL Albumin/Globulin Ratio 0.7 (1.0-2.7) L Alpha Fetoprotein Pending Hepatitis A IgM Antibody Pending Hepatitis B Surface Antigen Pending Hepatitis B Core IgM Antibody Pending Hepatitis C Antibody Pending Urine Opiates Screen Negative (NEGATIVE) Urine Barbiturates Screen Negative (NEGATIVE) Phencyclidine (PCP) Screen Negative (NEGATIVE) Urine Amphetamines Screen Negative (NEGATIVE) Urine Benzodiazepines Screen Negative (NEGATIVE) Urine Cocaine Screen Negative (NEGATIVE) Urine Marijuana (THC) Screen Negative (NEGATIVE) Current Medications Medications (Trade) Dose Ordered Sig/Arvind Route PRN Reason Start Time Stop Time Status Last Admin Dose Admin Albuterol/ Ipratropium (Albuterol/ Ipratropium) 3 ml Q4H PRN HHN Shortness of Breath 03/26/18 17:00 03/31/18 16:59 03/27/18 12:00 Albuterol/ Ipratropium (Albuterol/ Ipratropium) 3 ml Q4HRT HHN 03/27/18 15:00 04/01/18 14:59 03/28/18 07:33 Atorvastatin Calcium (Lipitor) 40 mg BEDTIME ORAL 03/27/18 21:00 04/26/18 20:59 03/27/18 20:51 Carvedilol (Coreg) 3.125 mg EVERY 12 HOURS ORAL 03/26/18 21:00 04/25/18 20:59 03/28/18 09:08 Dextrose (Dextrose 50%) 25 ml Q30M PRN IV Hypoglycemia 03/26/18 17:00 04/25/18 16:59 Dextrose (Dextrose 50%) 50 ml Q30M PRN IV Hypoglycemia 03/26/18 17:00 04/25/18 16:59 Diphenhydramine HCl (Benadryl) 25 mg Q6H PRN ORAL Itching 03/27/18 00:30 04/26/18 00:29 Furosemide (Lasix) 40 mg EVERY 12 HOURS IV 03/26/18 21:00 04/25/18 20:59 03/28/18 09:09 Insulin Aspart (NovoLOG) BEFORE MEALS AND HS SUBQ 03/26/18 21:00 04/25/18 20:59 03/28/18 06:08 Levofloxacin 150 ml @ 100 mls/hr Q48H IVPB 03/27/18 16:30 04/03/18 16:29 03/27/18 16:05 Lisinopril (Zestril) 10 mg DAILY ORAL 03/27/18 09:00 04/26/18 08:59 03/28/18 09:09 Lorazepam (Ativan) 1 mg Q6H PRN ORAL For Anxiety 03/28/18 11:45 04/04/18 11:44 Pregabalin (Lyrica) 25 mg TID ORAL 03/28/18 09:00 04/27/18 08:59 03/28/18 13:09 Spironolactone (Aldactone) 25 mg DAILY ORAL 03/27/18 09:00 04/26/18 08:59 03/28/18 09:08 Tramadol HCl (Ultram) 50 mg Q12H PRN ORAL Pain 03/28/18 09:00 04/04/18 08:59 03/28/18 09:08 Sj Wren MD Mar 28, 2018 14:34
--- NOTE | 2018-03-28 15:55 | Consultation ---
Consult Note Assessment/Plan DICT # [id number] Tyler Bardales MD Mar 28, 2018 15:55
--- NOTE | 2018-03-28 15:58 | Diagnostic Imaging Report ---
Indication: Dyspnea Technique: Continuous helical transaxial imaging of the chest was obtained from the thoracic inlet to the upper abdomen. No intravenous contrast was administered. Coronal 2-D reformats were also obtained. Total Dose length Product (DLP): 826.[address] Dose Index Volume (CTDIvol): 27.52 mGy Comparison: none Findings: Other abnormal reticular nodular densities demonstrated throughout the lung guzmán bilaterally. This has a somewhat central distribution and peribronchial distribution within the upper lobes. The nature of this is not known and may be due to interstitial pneumonitis, residual or mild interstitial edema which is probably felt to be less likely based on the appearance. In addition there is a abnormal groundglass airspace disease involving the lateral segment of the right middle lobe adjacent to the major and minor fissures. This could be due to pneumonia. Correlate clinically. There is a a right posterior basilar focus of airspace disease as well some of which is atelectasis while a portion could be pneumonia as well. There is left basal atelectasis versus pneumonia as well. Please correlate clinically. There is a pacemaker present. The heart is enlarged. Coronary and aortic calcifications are present. No significant pleural effusion is identified. There is a small hiatal hernia present. Cholecystectomy noted. Accessory spleen noted. IMPRESSION: Evidence of right middle lobe airspace disease likely pneumonia. Pneumonia also likely present within posterior basilar aspects of the lower lobes. Superimposed atelectasis also noted at the lung bases. Please correlate clinically. Mild reticulonodular interstitial disease perihilar distribution, nonspecific. Consider pneumonitis versus superimposed interstitial edema. Cardiomegaly and atherosclerotic vascular disease Pacemaker Status post cholecystectomy. The CT scanner at [facility] is accredited by the [employer] and the scans are performed using dose optimization techniques as appropriate to a performed exam including Automatic Exposure control.
[2018-03-28 16:00] VITALS: BP 97/53
--- NOTE | 2018-03-28 16:46 | Consultation ---
History of Present Illness General Date patient seen: Mar 28, 2018 Chief Complaint: Upper Respiratory Illness Referring physician: CORINNA DIEGO Reason for Consultation: Transaminitis Present Illness Allergies: Coded Allergies: CODEINE (Verified Allergy, Unknown, Itching, 03/26/18) Medication History Scheduled Amiodarone Hcl* (Amiodarone Hcl*), 200 MG ORAL EVERY 12 HOURS, (Reported) Amlodipine Besylate (Norvasc), 2 MG ORAL DAILY, (Reported) Atorvastatin Calcium* (Atorvastatin Calcium*), 40 MG ORAL BEDTIME, (Reported) Furosemide* (Lasix*), 20 MG ORAL DAILY, (Reported) Metoprolol Tartrate* (Metoprolol Tartrate*), 25 MG ORAL EVERY 12 HOURS, ( Reported) Pregabalin* (Lyrica*), 50 MG ORAL THREE TIMES A DAY, (Reported) Miscellaneous Medications Apixaban (Eliquis), 5 MG PO, (Reported) Unable to Obtain Medications (Unable To Obtain Meds), (Reported) Patient History Healthcare decision maker Resuscitation status Full Code Advanced Directive on File Physical Exam Last 24 Hour Vital Signs Date Time Temp Pulse Resp B/P (MAP) Pulse Ox O2 Delivery O2 Flow Rate FiO2 03/28/18 15:42 74 20 96 Nasal Cannula 2.0 28 03/28/18 15:35 72 18 93 Nasal Cannula 2.0 28 03/28/18 13:39 99.5 03/28/18 13:39 102.2 03/28/18 12:00 102.2 72 18 102/62 (75) 95 03/28/18 11:52 62 03/28/18 10:45 Nasal Cannula 2.0 28 03/28/18 10:45 Nasal Cannula 2.0 28 03/28/18 09:38 98.8 03/28/18 09:09 122/75 03/28/18 09:08 74 122/75 03/28/18 09:00 Nasal Cannula 2.0 03/28/18 08:00 98.8 74 18 122/75 (91) 98 03/28/18 07:57 69 03/28/18 07:45 72 20 95 Nasal Cannula 2.0 28 03/28/18 07:33 68 18 93 Nasal Cannula 2.0 28 03/28/18 07:33 93 Nasal Cannula 2.0 28 03/28/18 07:33 68 18 Nasal Cannula 2.0 28 03/28/18 07:33 Nasal Cannula 2.0 28 03/28/18 04:35 70 20 95 Nasal Cannula 2.0 28 03/28/18 04:25 71 20 91 Nasal Cannula 2.0 28 03/28/18 04:00 98.0 18 103/66 (78) 98 03/28/18 04:00 66 03/28/18 01:12 99.3 03/28/18 00:01 66 20 94 Nasal Cannula 2.0 28 03/28/18 00:00 101.9 20 116/66 (83) 97 03/28/18 00:00 62 03/27/18 23:52 77 20 90 Nasal Cannula 2.0 28 03/27/18 21:00 Nasal Cannula 2.0 03/27/18 20:50 70 106/66 03/27/18 20:45 70 20 97 Nasal Cannula 2.0 28 03/27/18 20:34 76 20 93 Nasal Cannula 2.0 28 03/27/18 20:34 Nasal Cannula 2.0 28 03/27/18 20:33 93 Nasal Cannula 2.0 28 03/27/18 20:32 68 20 Nasal Cannula 2.0 28 03/27/18 20:00 71 03/27/18 20:00 99.0 72 18 106/66 (79) 92 Intake and Output 03/27/18 03/28/18 19:00 07:00 Intake Total 240 ml Balance 240 ml Intake Oral 240 ml # Voids 1 2 Laboratory Tests Test 03/28/18 05:40 03/28/18 13:56 White Blood Count 2.2 K/UL (4.8-10.8) L Red Blood Count 3.95 M/UL (4.20-5.40) L Hemoglobin 12.3 G/DL (12.0-16.0) Hematocrit 37.0 % (37.0-47.0) Mean Corpuscular Volume 94 FL (80-99) Mean Corpuscular Hemoglobin 31.2 PG (27.0-31.0) H Mean Corpuscular Hemoglobin Concent 33.4 G/DL (32.0-36.0) Red Cell Distribution Width 14.2 % (11.6-14.8) Platelet Count 91 K/UL (150-450) L Mean Platelet Volume 10.4 FL (6.5-10.1) H Neutrophils (%) (Auto) % (45.0-75.0) Lymphocytes (%) (Auto) % (20.0-45.0) Monocytes (%) (Auto) % (1.0-10.0) Eosinophils (%) (Auto) % (0.0-3.0) Basophils (%) (Auto) % (0.0-2.0) Differential Total Cells Counted 100 Neutrophils % (Manual) 63 % (45-75) Lymphocytes % (Manual) 22 % (20-45) Monocytes % (Manual) 8 % (1-10) Eosinophils % (Manual) 1 % (0-3) Basophils % (Manual) 0 % (0-2) Band Neutrophils 6 % (0-8) Platelet Estimate Decreased L Platelet Morphology Normal Red Blood Cell Morphology Normal Sodium Level 138 MMOL/L (136-145) Potassium Level 3.6 MMOL/L (3.5-5.1) Chloride Level 101 MMOL/L (98-107) Carbon Dioxide Level 28 MMOL/L (21-32) Anion Gap 10 mmol/L (5-15) Blood Urea Nitrogen 22 mg/dL (7-18) H Creatinine 1.5 MG/DL (0.55-1.30) H Estimat Glomerular Filtration Rate 43.5 mL/min (>60) Glucose Level 117 MG/DL (74-106) H Calcium Level 8.6 MG/DL (8.5-10.1) Total Bilirubin 1.4 MG/DL (0.2-1.0) H Direct Bilirubin 1.0 MG/DL (0.0-0.3) H Gamma Glutamyl Transpeptidase 603 U/L (5-85) H Aspartate Amino Transf (AST/SGOT) 5434 U/L (15-37) H Alanine Aminotransferase (ALT/SGPT) 2850 U/L (12-78) H Alkaline Phosphatase 163 U/L (46-116) H Lactate Dehydrogenase 3430 U/L (81-234) H Total Protein 7.4 G/DL (6.4-8.2) Albumin 3.1 G/DL (3.4-5.0) L Globulin 4.3 g/dL Albumin/Globulin Ratio 0.7 (1.0-2.7) L Alpha Fetoprotein Pending Hepatitis A IgM Antibody Pending Hepatitis B Surface Antigen Pending Hepatitis B Core IgM Antibody Pending Hepatitis C Antibody Pending HIV (1&2) Antibody Rapid Negative (NEGATIVE) Urine Opiates Screen Negative (NEGATIVE) Urine Barbiturates Screen Negative (NEGATIVE) Phencyclidine (PCP) Screen Negative (NEGATIVE) Urine Amphetamines Screen Negative (NEGATIVE) Urine Benzodiazepines Screen Negative (NEGATIVE) Urine Cocaine Screen Negative (NEGATIVE) Urine Marijuana (THC) Screen Negative (NEGATIVE) Height (Feet): 5 Height (Inches): 0.00 Weight (Pounds): 205 Medications Current Medications Medications (Trade) Dose Ordered Sig/Arvind Route PRN Reason Start Time Stop Time Status Last Admin Dose Admin Albuterol/ Ipratropium (Albuterol/ Ipratropium) 3 ml Q4H PRN HHN Shortness of Breath 03/26/18 17:00 03/31/18 16:59 03/27/18 12:00 Albuterol/ Ipratropium (Albuterol/ Ipratropium) 3 ml Q4HRT HHN 03/27/18 15:00 04/01/18 14:59 03/28/18 15:35 Atorvastatin Calcium (Lipitor) 40 mg BEDTIME ORAL 03/27/18 21:00 04/26/18 20:59 03/27/18 20:51 Azithromycin 250 mg/Dextrose 250 ml @ 250 mls/hr Q24HRS IV 03/29/18 15:00 04/05/18 14:59 Azithromycin 500 mg/Dextrose 250 ml @ 250 mls/hr ONCE IV 03/28/18 15:00 03/28/18 17:00 03/28/18 16:11 Carvedilol (Coreg) 3.125 mg EVERY 12 HOURS ORAL 03/26/18 21:00 04/25/18 20:59 03/28/18 09:08 Ceftriaxone Sodium 1 gm/ Dextrose 50 ml @ 100 mls/hr Q24H IVPB 03/28/18 16:00 04/04/18 15:59 Dextrose (Dextrose 50%) 25 ml Q30M PRN IV Hypoglycemia 03/26/18 17:00 04/25/18 16:59 Dextrose (Dextrose 50%) 50 ml Q30M PRN IV Hypoglycemia 03/26/18 17:00 04/25/18 16:59 Diphenhydramine HCl (Benadryl) 25 mg Q6H PRN ORAL Itching 03/27/18 00:30 04/26/18 00:29 Furosemide (Lasix) 40 mg EVERY 12 HOURS IV 03/26/18 21:00 04/25/18 20:59 03/28/18 09:09 Insulin Aspart (NovoLOG) BEFORE MEALS AND HS SUBQ 03/26/18 21:00 04/25/18 20:59 03/28/18 06:08 Lisinopril (Zestril) 10 mg DAILY ORAL 03/27/18 09:00 04/26/18 08:59 03/28/18 09:09 Lorazepam (Ativan) 1 mg Q6H PRN ORAL For Anxiety 03/28/18 11:45 04/04/18 11:44 Oseltamivir Phosphate (Tamiflu) 30 mg TWICE A DAY ORAL 03/28/18 18:00 04/02/18 17:59 Pregabalin (Lyrica) 25 mg TID ORAL 03/28/18 09:00 04/27/18 08:59 03/28/18 13:09 Spironolactone (Aldactone) 25 mg DAILY ORAL 03/27/18 09:00 04/26/18 08:59 03/28/18 09:08 Tramadol HCl (Ultram) 50 mg Q12H PRN ORAL Pain 03/28/18 09:00 04/04/18 08:59 03/28/18 09:08 Assessment/Plan Assessment/Plan Hematology Consultation REQ MD: Millie Date patient seen: Mar 28, 2018 RFC: Pancytopneia Reason for Hospitalization: Upper Respiratory Illness HPI 57-year-old female presents to the emergency department complaining of cough, productive of blood sputum, wheezing, shortness of breath with history of COPD, CHF s/p AICD, diabetes. She reports chills but denies fevers. She states that she has an albuterol inhaler at home but it has not been helping. Denies LE edema. In ED she was felt to acute CHF exacerbation and referred for admission. Noted to have pancytopenia, heme consulted as well as gi for shock liver eval. FHx: No premature CAD Social: Former smoker Coded Allergies: CODEINE (Verified Allergy, Unknown, Itching, 03/26/18) Medication History Miscellaneous Medications Unable to Obtain Medications (Unable To Obtain Meds), (Reported) Patient History Healthcare decision maker Resuscitation status Review of Systems Constitutional: Reports: chills; Denies: fever Eye: Denies: eye pain, blurred vision ENT: Denies: ear pain, ear discharge Respiratory: Reports: cough, orthopnea, shortness of breath Cardiovascular: Denies: chest pain, edema Gastrointestinal: Denies: abdominal pain, constipation Genitourinary: Denies: discharge, dysuria Musculoskeletal: Denies: back pain Skin: Denies: rash Neurological: Denies: headache, numbness Endocrine: Denies: excessive sweating Hematologic/Lymphatic: Denies: anemia Physical Exam General Appearance: no apparent distress, alert HEENT: normocephalic Neck: normal alignment, supple Respiratory/Chest: no respiratory distress, other - bibasilar rales Cardiovascular/Chest: normal rate, regular rhythm, regularly irregular Abdomen: normal bowel sounds, non tender, soft Extremities: normal range of motion, non-tender Skin Exam: normal pigmentation 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 II-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 grossly normal Last 24 Hour Vital Signs Date Time Temp Pulse Resp B/P (MAP) Pulse Ox O2 Delivery O2 Flow Rate FiO2 03/28/18 15:42 74 20 96 Nasal Cannula 2.0 28 03/28/18 15:35 72 18 93 Nasal Cannula 2.0 28 03/28/18 13:39 99.5 03/28/18 13:39 102.2 03/28/18 12:00 102.2 72 18 102/62 (75) 95 03/28/18 11:52 62 03/28/18 10:45 Nasal Cannula 2.0 28 03/28/18 10:45 Nasal Cannula 2.0 28 03/28/18 09:38 98.8 03/28/18 09:09 122/75 03/28/18 09:08 74 122/75 03/28/18 09:00 Nasal Cannula 2.0 03/28/18 08:00 98.8 74 18 122/75 (91) 98 03/28/18 07:57 69 03/28/18 07:45 72 20 95 Nasal Cannula 2.0 28 03/28/18 07:33 68 18 93 Nasal Cannula 2.0 28 03/28/18 07:33 93 Nasal Cannula 2.0 28 03/28/18 07:33 68 18 Nasal Cannula 2.0 28 03/28/18 07:33 Nasal Cannula 2.0 28 03/28/18 04:35 70 20 95 Nasal Cannula 2.0 28 03/28/18 04:25 71 20 91 Nasal Cannula 2.0 28 03/28/18 04:00 98.0 18 103/66 (78) 98 03/28/18 04:00 66 03/28/18 01:12 99.3 03/28/18 00:01 66 20 94 Nasal Cannula 2.0 28 03/28/18 00:00 101.9 20 116/66 (83) 97 03/28/18 00:00 62 03/27/18 23:52 77 20 90 Nasal Cannula 2.0 28 03/27/18 21:00 Nasal Cannula 2.0 03/27/18 20:50 70 106/66 03/27/18 20:45 70 20 97 Nasal Cannula 2.0 28 03/27/18 20:34 76 20 93 Nasal Cannula 2.0 28 03/27/18 20:34 Nasal Cannula 2.0 28 03/27/18 20:33 93 Nasal Cannula 2.0 28 03/27/18 20:32 68 20 Nasal Cannula 2.0 28 03/27/18 20:00 71 03/27/18 20:00 99.0 72 18 106/66 (79) 92 Laboratory Tests Test 03/26/18 14:45 White Blood Count 5.8 K/UL (4.8-10.8) Red Blood Count 3.99 M/UL (4.20-5.40) L Hemoglobin 12.4 G/DL (12.0-16.0) Hematocrit 37.6 % (37.0-47.0) Mean Corpuscular Volume 94 FL (80-99) Mean Corpuscular Hemoglobin 31.1 PG (27.0-31.0) H Mean Corpuscular Hemoglobin Concent 33.0 G/DL (32.0-36.0) Red Cell Distribution Width 14.0 % (11.6-14.8) Platelet Count 96 K/UL (150-450) L Mean Platelet Volume 9.0 FL (6.5-10.1) Neutrophils (%) (Auto) % (45.0-75.0) Lymphocytes (%) (Auto) % (20.0-45.0) Monocytes (%) (Auto) % (1.0-10.0) Eosinophils (%) (Auto) % (0.0-3.0) Basophils (%) (Auto) % (0.0-2.0) Differential Total Cells Counted 100 Neutrophils % (Manual) 60 % (45-75) Lymphocytes % (Manual) 29 % (20-45) Monocytes % (Manual) 5 % (1-10) Eosinophils % (Manual) 2 % (0-3) Basophils % (Manual) 0 % (0-2) Band Neutrophils 4 % (0-8) Platelet Estimate Decreased L Platelet Morphology Normal Red Blood Cell Morphology Normal Prothrombin Time 12.3 SEC (9.30-11.50) H Prothromb Time International Ratio 1.2 (0.9-1.1) H Activated Partial Thromboplast Time 35 SEC (23-33) H Sodium Level 137 MMOL/L (136-145) Potassium Level 3.3 MMOL/L (3.5-5.1) L Chloride Level 101 MMOL/L (98-107) Carbon Dioxide Level 25 MMOL/L (21-32) Anion Gap 11 mmol/L (5-15) Blood Urea Nitrogen 16 mg/dL (7-18) Creatinine 1.2 MG/DL (0.55-1.30) Estimat Glomerular Filtration Rate 56.2 mL/min (>60) Glucose Level 103 MG/DL (74-106) Calcium Level 8.6 MG/DL (8.5-10.1) Total Bilirubin 0.9 MG/DL (0.2-1.0) Aspartate Amino Transf (AST/SGOT) 2496 U/L (15-37) H Alanine Aminotransferase (ALT/SGPT) 1404 U/L (12-78) H Alkaline Phosphatase 136 U/L (46-116) H Total Creatine Kinase 274 U/L (26-308) Troponin I Pending Pro-B-Type Natriuretic Peptide 3097 pg/mL (0-125) H Total Protein 7.7 G/DL (6.4-8.2) Albumin 3.4 G/DL (3.4-5.0) Globulin 4.3 g/dL Albumin/Globulin Ratio 0.8 (1.0-2.7) L Height (Feet): 5 Weight (Pounds): 205 Medications Current Medications Medications (Trade) Dose Ordered Sig/Arvind Route PRN Reason Start Time Stop Time Status Last Admin Dose Admin Albuterol/ Ipratropium (Albuterol/ Ipratropium) 3 ml Q4H PRN HHN Shortness of Breath 03/26/18 17:00 03/31/18 16:59 Carvedilol (Coreg) 3.125 mg EVERY 12 HOURS ORAL 03/26/18 21:00 04/25/18 20:59 Dextrose (Dextrose 50%) 25 ml Q30M PRN IV Hypoglycemia 03/26/18 17:00 04/25/18 16:59 Dextrose (Dextrose 50%) 50 ml Q30M PRN IV Hypoglycemia 03/26/18 17:00 04/25/18 16:59 Furosemide (Lasix) 40 mg EVERY 12 HOURS IV 03/26/18 21:00 04/25/18 20:59 Lisinopril (Zestril) 10 mg DAILY ORAL 03/27/18 09:00 04/26/18 08:59 Spironolactone (Aldactone) 25 mg DAILY ORAL 03/27/18 09:00 04/26/18 08:59 Assessment/Plan # Pancytopenia - causes likely multifactorial, could be related to hepatitis, v shock liver, v acute on chronic systolic CHF --> cards and gi have been consulted --> hepatitis and hiv have been ordered --> us of the abdomen have been ordered as well, currently is negative --> meds have been reviewed --> transfuse as needed, hgb goal >7, and plt goal 20k --> give neupogen if ANC <1500 # Mild hypokalemia --> monitor electrolytes repleted # Abnormal LFTs --> as per gi team, lfts have been reviewed # Suspected congestive hepatopathy --> monitor LFTs --> avoid hepatotoxic meds # Morbid Obesity --> recommend weight loss once discharged # Reported history of DMII --> on iss, and-Diabetic diet --> a1c goal <7.5 The timing of this note does not necessarily reflect the time of the patient was seen. Greatly appreciate consultation! Grabiel Hackett MD Mar 28, 2018 16:46
--- NOTE | 2018-03-28 17:09 | NUR ---
NURSE NOTES: Spoke to Dr. Singleton. Explained about 3 respirtory therapists attempts to draw abg with the third try successful. ph 7.437, pco2 40.1 po2 57.6, HCO3 26.4 and FO2 is 89.1%. Dr. Singleton is aware and no new orders at this time.
[2018-03-28] MEDS: cefTRIAXone 1 GM in D5W 50 ML IVPB SCH (18:22)
--- NOTE | 2018-03-28 19:10 | NUR ---
HAND-OFF: Report given to FRIDA Gates.
--- NOTE | 2018-03-28 19:15 | NUR ---
NURSE NOTES: Received report from FRIDA Meyer. Patient in bed asleep with no signs of acute distress. Respiration even and non labored on 2L nc. No SOB. HOB elevated. IV line patent and intact. Vitals stable. No c/o pain, Call light within reach. Bed in lowest position. Will continue plan of care.
--- NOTE | 2018-03-28 20:15 | NUR ---
CASE MANAGEMENT: REVIEW 57/F BIBA FROM HOME CC: CONGESTED X4 DAYS SI: CHF . PNA T 100.0 HR 75 RR 18 BP 105/57 SAT 95% ROOM AIR ABG: PH 7.437 PCO2 40.1 PO2 57.6 HCO3 26.4 O2 SAT 89.9 IS: ALBUTEROL HHN PROMETHAZINE PO X1 TORADOL IV X1 LASIX IV X1 LEVOFLOXACIN IV X1 PATIENT ADMITTED TO TELEMETRY UNIT 03/26/2018 DCP: PATIENT IS FROM HOME
[2018-03-28 21:00] VITALS: BP 89/52
--- NOTE | 2018-03-28 21:15 | Consultation ---
DATE OF CONSULTATION: 03/28/2018 PULMONARY CONSULTATION CONSULTING PHYSICIAN: Tyler Bardales M.D. REFERRING PHYSICIAN: . REASON FOR CONSULTATION: Hemoptysis and chronic obstructive pulmonary disease. HISTORY OF PRESENT ILLNESS: The patient is a 57-year-old female former smoker with a history of chronic obstructive pulmonary disease, congestive heart failure, automatic implanted cardioverter defibrillator, diabetes, and prior stroke, who presented with cough, productive phlegm, wheezing and shortness of breath. She states that she has been coughing for several days, productive of mucoid phlegm with blood tinging. She was admitted for decompensated heart failure and hepatopathy. The patient also has obesity, but denies a history of DEMETRIA. Her AHI is 40. Her T-max is 102.2. Saturating well on two liters. She is leukopenic and has evidence of SERG with a creatinine of 1.5 and a marked transaminitis with levels of AST greater than 5000. Her is negative and tox screen negative. Hepatitis serologies are pending. Chest x-ray shows a right basilar opacity, likely infiltrate. Abdominal ultrasound was unremarkable except that she is status post cholecystectomy and duplex showed an ejection fraction of 55 to 60 percent with a PA systolic of 39. PAST MEDICAL HISTORY: 1. Congestive heart failure. 2. Automatic implanted cardioverter defibrillator. 3. Chronic obstructive pulmonary disease. 4. CVA. 5. Hypertension. 6. Hyperlipidemia. 7. Diabetes. PAST SURGICAL HISTORY: 1. Cholecystectomy. 2. Automatic implanted cardioverter defibrillator. MEDICATIONS: Prior to admission medications reviewed. Current medications reviewed. ALLERGIES: Codeine. SOCIAL HISTORY: Former smoker, none current. Denies drug or alcohol use. FAMILY HISTORY: Noncontributory. REVIEW OF SYSTEMS: Negative other than the history of present illness. PHYSICAL EXAMINATION: VITAL SIGNS: Temperature 102.2, pulse 72, blood pressure 102/62, and respiratory rate 18. GENERAL: She is an overweight female, in no acute distress. HEENT: Normocephalic and atraumatic. Oropharynx is clear. Moist mucosa membrane. NECK: Supple without lymphadenopathy or jugular venous distention. CHEST: Scattered coarse breath sounds. Faint end-expiratory wheezing. HEART: Regular rate and rhythm. ABDOMEN: Soft, nontender, and nondistended. EXTREMITIES: No cyanosis, clubbing or edema. ANCILLARY DATA: White count 2.3, hemoglobin 12.3, and platelet count 91,000. INR 1.3. Sodium 138, potassium 3.6, chloride 101, bicarbonate 28, BUN 22, creatinine 1.5, glucose 117, and calcium 8.6. Total bilirubin 1.4, direct bilirubin 1.0. GGT 603. AST 5434, ALT 2850, and alkaline phosphatase 163. Troponin negative. Total protein 7.3. Albumin 3.1. Globulin 4.3. IMAGING: Chest x-ray with right basilar infiltrate. Abdominal ultrasound unremarkable. Echocardiogram, LVEF 55 to 60 percent. Borderline left ventricular hypertrophy. No pericardial effusions. Mild enlargement. IVC was normal. PA systolic pressure 39. ASSESSMENT: The patient is a 57-year-old female with a history of obesity, likely obesity hypoventilation, former smoker, chronic obstructive pulmonary disease, congestive heart failure with diastolic dysfunction, likely ischemic cardiomyopathy, automatic implanted cardioverter defibrillator, diabetes, hypertension, hyperlipidemia, prior CVA, presenting with respiratory illness with community-acquired pneumonia and hemoptysis with a possible exacerbation of underlying chronic obstructive pulmonary disease. PROBLEM LIST: 1. Community-acquired pneumonia. 2. Hemoptysis likely secondary to #1 above. 3. COPD without evidence of exacerbation. 4. Congestive heart failure without evidence of decompensated heart failure. 5. Atrial fibrillation/sick sinus syndrome, status post automatic implanted cardioverter defibrillator. 6. Acute kidney injury. 7. Diabetes. 8. Hypertension. 9. Hyperlipidemia. 10. Prior CVA. TREATMENT PLAN: 1. Optimize pulmonary hygiene/mobilize as tolerated. 2. P.r.n. O2 to keep saturations greater than 90%. 3. Anticoagulation has been held. 4. Monitor for further hemoptysis. 5. CT scan of the chest is pending. 6. Around the clock and p.r.n. DuoNebs. 7. Rocephin, azithromycin, and Tamiflu per ID. 8. Follow up cultures and serologies. 9. Monitor volumes and renal function, would be cautious with over-diuresis. 10. DVT prophylaxis, SCDs. 11. Check a baseline ABG. 12. The patient should have outpatient PFTs and sleep studies. 13. The patient is a Full Code. , thank you for allowing me to assist in the care of your patient. If I may be of any assistance in the future, please do not hesitate to ask. Tyler Bardales M.D. DR: MESFIN JOB#: [id number] CC:
[2018-03-28] MEDS: Atorvastatin 20mg tab ORAL SCH (21:19)
[2018-03-28] MEDS: LORazepam 1mg tab ORAL PRN (22:48)
--- NOTE | 2018-03-28 23:38 | Cardiology Report ---
APPROVED REPORT EKG Measurement Heart [id number] Normal sinus rhythm Nonspecific T wave abnormality Abnormal ECG
--- NOTE | 2018-03-28 23:54 | NUR ---
NURSE NOTES: Left a message to Dr. Mccurdy about negative result of influenza A&B. Awaiting call back
[2018-03-29] VITALS: BP 84/59
--- NOTE | 2018-03-29 01:01 | NUR ---
NURSE NOTES: Spoke with Dr. Chacon regarding Pt. BP of 84/59 at 0000 and BP 89/52 at 2000. 500cc NS Bolus order was provided and carried out.
[2018-03-29] MEDS ORDERED: Sodium Chloride 550 ML IV ONE (01:30)
[2018-03-29] MEDS: Albuterol/Ipratropium 3ml neb HHN SCH ×6 (02:40→23:23)
[2018-03-29 04:00] VITALS: BP 115/56
[2018-03-29] MEDS: NovoLOG Insulin Flexpen SUBQ SCH ×4 (06:04→20:01)
[2018-03-29 07:05] LABS: HEMATOCRIT 35.6 % (37.0-47.0); HEMOGLOBIN 11.8 G/DL (12.0-16.0); MEAN CORPUSCULAR VOLUME 93 FL (80-99); PLATELET COUNT 76 K/UL (150-450); RED BLOOD COUNT 3.83 M/UL (4.20-5.40); RED CELL DISTRIBUTION WIDTH 13.9 % (11.6-14.8); WHITE BLOOD COUNT 2.2 K/UL (4.8-10.8)
--- NOTE | 2018-03-29 07:10 | NUR ---
HAND-OFF: Report given to FRIDA Meyer. Patient in beed asleep with no signs of acute distress. All needs attended and met.
[2018-03-29 07:19] LABS: ALANINE AMINOTRANSFERASE 2065 U/L (12-78); ALBUMIN 2.9 G/DL (3.4-5.0); ALBUMIN/GLOBULIN RATIO 0.7 (1.0-2.7); ALKALINE PHOSPHATASE 162 U/L (46-116); ANION GAP 10 mmol/L (5-15); ASPARTATE AMINO TRANSFERASE 2531 U/L (15-37); BILIRUBIN,TOTAL 1.3 MG/DL (0.2-1.0); BLOOD UREA NITROGEN 34 mg/dL (7-18); CALCIUM 9.1 MG/DL (8.5-10.1); CARBON DIOXIDE 27 MMOL/L (21-32); CHLORIDE 98 MMOL/L (98-107); CREATININE 2.5 MG/DL (0.55-1.30); POTASSIUM 3.7 MMOL/L (3.5-5.1); SODIUM 135 MMOL/L (136-145)
--- NOTE | 2018-03-29 07:21 | NUR ---
NURSE NOTES: Received report from FRIDA Gates. Patient in bed asleep with no signs of acute distress. Respiration even and non labored. No SOB. HOB elevated. IV line patent and intact. Vitals stable. No c/o pain, Call light within reach. Bed in lowest position. Will continue plan of care.
[2018-03-29 07:23] LABS: BILIRUBIN,DIRECT 0.8 MG/DL (0.0-0.3)
[2018-03-29 07:58] VITALS: BP 104/60
--- NOTE | 2018-03-29 08:12 | NUR ---
NURSE NOTES: Called service on Dr. Crespo. Spoke to [place] on . Awaiting callback. 0816: Spoke with Dr. Crespo. Spoke about temperature 101.3F, blood pressure 104/60, WBC 2.2, plt 76, Na 135, and about even of blood pressure dropping overnight. Received orders. Which includes to hold blood pressure medications this morning. Dr. Crespo will follow up patient later today.
[2018-03-29] MEDS: Spironolactone 25mg tab ORAL SCH (08:21)
[2018-03-29] MEDS: Lisinopril 10mg tab ORAL SCH (08:22)
[2018-03-29] MEDS: Lyrica 25mg cap ORAL SCH (08:33)
--- NOTE | 2018-03-29 09:00 | Pulmonology Progress Note ---
Assessment/Plan Assessment/Plan Pulmonary Progress Note HPI: The patient is a 57-year-old female with a previous smoking history with a history of chronic obstructive pulmonary disease, congestive heart failure, automatic implanted cardioverter defibrillator, diabetes, and prior stroke, who presented with cough, productive phlegm, wheezing and shortness of breath. She states that she has been coughing for several days, productive of mucoid phlegm with blood tinging. She was admitted for decompensated heart failure and hepatopathy. The patient also has obesity, but denies a history of DEMETRIA. Her BMI is 40. Patient noted to be leukopenic, has evidence of SERG, marked transaminitis with levels of AST greater than 5000. Chest x-ray shows a right basilar opacity, likely infiltrate. CT chest bilateral infiltrates (RML and LL's), subtle reticulonodular changes. Abdominal ultrasound was unremarkable except that she is status post cholecystectomy and duplex showed an ejection fraction of 55 to 60 percent with a PA systolic of 39. PAST MEDICAL HISTORY: 1. Congestive heart failure. 2. Automatic implanted cardioverter defibrillator. 3. Chronic obstructive pulmonary disease. 4. CVA. 5. Hypertension. 6. Hyperlipidemia. 7. Diabetes. PAST SURGICAL HISTORY: 1. Cholecystectomy. 2. Automatic implanted cardioverter defibrillator. MEDICATIONS: Prior to admission medications reviewed. Current medications reviewed. ALLERGIES: Codeine. SOCIAL HISTORY: Former smoker, none current. Denies drug or alcohol use. FAMILY HISTORY: Noncontributory. REVIEW OF SYSTEMS: Negative other than the history of present illness. PHYSICAL EXAMINATION: VITAL SIGNS NOTED GENERAL: She is an overweight female, in no acute distress. HEENT: Normocephalic and atraumatic. Oropharynx is clear. Moist mucosa membrane. NECK: Supple without lymphadenopathy or jugular venous distention. CHEST: Scattered coarse breath sounds. Faint end-expiratory wheezing. HEART: Regular rate and rhythm. ABDOMEN: Soft, nontender, and nondistended. EXTREMITIES: No cyanosis, clubbing or edema. ANCILLARY DATA: White count 2.3, hemoglobin 12.3, and platelet count 91,000. INR 1.3. Sodium 138, potassium 3.6, chloride 101, bicarbonate 28, BUN 22, creatinine 1.5, glucose 117, and calcium 8.6. Total bilirubin 1.4, direct bilirubin 1.0. GGT 603. AST 5434, ALT 2850, and alkaline phosphatase 163. Troponin negative. Total protein 7.3. Albumin 3.1. Globulin 4.3. IMAGING: Chest x-ray with right basilar infiltrate. Abdominal ultrasound unremarkable. CT chest bilateral infiltrates (RML and LL's), subtle reticulonodular changes. Echocardiogram, LVEF 55 to 60 percent. Borderline left ventricular hypertrophy. No pericardial effusions. Mild enlargement. IVC was normal. PA systolic pressure 39. ASSESSMENT: The patient is a 57-year-old female with a history of obesity, likely obesity hypoventilation, former smoker, chronic obstructive pulmonary disease, congestive heart failure with diastolic dysfunction, likely ischemic cardiomyopathy, automatic implanted cardioverter defibrillator, diabetes, hypertension, hyperlipidemia, prior CVA, presenting with respiratory illness with community-acquired pneumonia and hemoptysis with a possible exacerbation of underlying chronic obstructive pulmonary disease. PROBLEM LIST: 1. Community-acquired pneumonia. 2. Hemoptysis likely secondary to #1 above. 3. COPD without evidence of exacerbation. 4. Congestive heart failure without evidence of decompensated heart failure. 5. Atrial fibrillation/sick sinus syndrome, status post automatic implanted cardioverter defibrillator. 6. Acute kidney injury. 7. Diabetes. 8. Hypertension. 9. Hyperlipidemia. 10. Prior CVA. TREATMENT PLAN: 1. Optimize pulmonary hygiene/mobilize as tolerated. 2. P.r.n. O2 to keep saturations greater than 90%. 3. Anticoagulation has been held. 4. Monitor for further hemoptysis. 5. CT scan of the chest is pending. 6. Around the clock and p.r.n. DuoNebs. 7. Rocephin, azithromycin, and Tamiflu per ID. 8. Follow up cultures and serologies. 9. Monitor volumes and renal function, would be cautious with over-diuresis. 10. DVT prophylaxis, SCDs. 11. Check a baseline ABG. 12. The patient should have outpatient PFTs and sleep studies. 13. The patient is a Full Code. Subjective ROS Limited/Unobtainable: No Allergies: Coded Allergies: CODEINE (Verified Allergy, Unknown, Itching, 03/26/18) Objective Last 24 Hour Vital Signs Date Time Temp Pulse Resp B/P (MAP) Pulse Ox O2 Delivery O2 Flow Rate FiO2 03/29/18 08:42 Nasal Cannula 2.0 03/29/18 08:22 104/60 03/29/18 08:21 72 104/60 03/29/18 07:58 101.3 72 18 104/60 (75) 95 03/29/18 07:33 68 18 97 Nasal Cannula 4.0 36 03/29/18 07:25 Nasal Cannula 4.0 36 03/29/18 07:25 92 Nasal Cannula 4.0 36 03/29/18 07:25 68 16 92 Nasal Cannula 4.0 36 03/29/18 04:00 99.4 71 18 115/56 (75) 94 03/29/18 04:00 67 03/29/18 02:49 60 14 97 Nasal Cannula 4.0 36 03/29/18 02:41 62 16 92 Nasal Cannula 4.0 36 03/29/18 00:00 98.6 66 17 84/59 (67) 98 03/29/18 00:00 65 03/28/18 23:59 66 16 95 Nasal Cannula 4.0 36 03/28/18 23:52 65 16 93 Nasal Cannula 4.0 36 03/28/18 21:00 98.5 65 16 89/52 (64) 94 03/28/18 21:00 65 89/52 03/28/18 21:00 65 03/28/18 21:00 Nasal Cannula 2.0 03/28/18 19:54 64 14 96 Nasal Cannula 4.0 36 03/28/18 19:46 92 Nasal Cannula 4.0 36 03/28/18 19:46 Nasal Cannula 4.0 36 03/28/18 19:44 92 16 92 Nasal Cannula 4.0 36 03/28/18 18:50 99.3 03/28/18 16:20 64 03/28/18 16:00 99.3 71 20 97/53 (68) 94 03/28/18 15:42 74 20 96 Nasal Cannula 2.0 28 03/28/18 15:35 72 18 93 Nasal Cannula 2.0 28 03/28/18 13:39 99.5 03/28/18 12:00 102.2 72 18 102/62 (75) 95 03/28/18 11:52 62 03/28/18 10:45 Nasal Cannula 2.0 28 03/28/18 10:45 Nasal Cannula 2.0 28 03/28/18 09:38 98.8 03/28/18 09:09 122/75 03/28/18 09:08 74 122/75 03/28/18 09:00 Nasal Cannula 2.0 Intake and Output 03/28/18 03/29/18 19:00 07:00 Intake Total 480 ml 100 ml Balance 480 ml 100 ml Intake Oral 480 ml 100 ml # Voids 3 Microbiology Date/Time Source Procedure Growth Status 03/28/18 17:00 Nasal Nares Influenza Types A,B Antigen (ANGELIKA) - Final Complete 03/28/18 15:25 Sputum Expectorated Gram Stain - Final Resulted 03/28/18 15:25 Sputum Expectorated Sputum Culture - Preliminary NORMAL UPPER RESPIRATORY HELRINDA AT 24 ... Resulted Laboratory Tests 03/28/18 12:56: Urine Legionella Antigen [Pending] 03/28/18 13:56: Urine Opiates Screen Negative, Urine Barbiturates Screen Negative, Phencyclidine (PCP) Screen Negative, Urine Amphetamines Screen Negative, Urine Benzodiazepines Screen Negative, Urine Cocaine Screen Negative, Urine Marijuana (THC) Screen Negative 03/28/18 16:29: Arterial Blood pH 7.437, Arterial Blood Partial Pressure CO2 40.1, Arterial Blood Partial Pressure O2 57.6L, Arterial Blood HCO3 26.4H, Arterial Blood Oxygen Saturation 89.9*L, Arterial Blood Base Excess 2.1H, Fran Test Positive 03/28/18 18:40: Legionella pneumophila Group 1 Ab [Pending], Legionella pneumophilia IgM Group 1 [Pending], Mycoplasma pneumoniae IgG Antibody [Pending], Mycoplasma pneumoniae IgM Ab Titer [Pending] 03/28/18 21:00: Cytomegalovirus IgG Antibody [Pending], Lisa-Odom Virus Capsid Ag IgG Ab [ Pending], Lisa-Odom Virus Capsid Ag IgM Ab [Pending] 03/29/18 05:40: White Blood Count 2.2L, Red Blood Count 3.83L, Hemoglobin 11.8L, Hematocrit 35.6L, Mean Corpuscular Volume 93, Mean Corpuscular Hemoglobin 30.8, Mean Corpuscular Hemoglobin Concent 33.2, Red Cell Distribution Width 13.9, Platelet Count 76L, Mean Platelet Volume 9.9, Neutrophils (%) (Auto) , Lymphocytes (%) ( Auto) , Monocytes (%) (Auto) , Eosinophils (%) (Auto) , Basophils (%) (Auto) , Neutrophils % (Manual) [Pending], Lymphocytes % (Manual) [Pending], Platelet Estimate [Pending], Platelet Morphology [Pending], Sodium Level 135L, Potassium Level 3.7, Chloride Level 98, Carbon Dioxide Level 27, Anion Gap 10, Blood Urea Nitrogen 34H, Creatinine 2.5#H, Estimat Glomerular Filtration Rate 24.1, Glucose Level 94, Calcium Level 9.1, Total Bilirubin 1.3H, Direct Bilirubin 0.8H , Aspartate Amino Transf (AST/SGOT) 2531H, Alanine Aminotransferase (ALT/SGPT) 2065H, Alkaline Phosphatase 162H, Total Protein 7.0, Albumin 2.9L, Globulin 4.1 , Albumin/Globulin Ratio 0.7L Current Medications Medications (Trade) Dose Ordered Sig/Arvind Route PRN Reason Start Time Stop Time Status Last Admin Dose Admin Albuterol/ Ipratropium (Albuterol/ Ipratropium) 3 ml Q4H PRN HHN Shortness of Breath 03/26/18 17:00 03/31/18 16:59 03/27/18 12:00 Albuterol/ Ipratropium (Albuterol/ Ipratropium) 3 ml Q4HRT HHN 03/27/18 15:00 04/01/18 14:59 03/29/18 07:25 Atorvastatin Calcium (Lipitor) 40 mg BEDTIME ORAL 03/27/18 21:00 04/26/18 20:59 03/28/18 21:19 Azithromycin 250 mg/Dextrose 250 ml @ 250 mls/hr Q24HRS IV 03/29/18 15:00 04/05/18 14:59 Carvedilol (Coreg) 3.125 mg EVERY 12 HOURS ORAL 03/26/18 21:00 04/25/18 20:59 03/28/18 09:08 Ceftriaxone Sodium 1 gm/ Dextrose 50 ml @ 100 mls/hr Q24H IVPB 03/28/18 16:00 04/04/18 15:59 03/28/18 18:22 Dextrose (Dextrose 50%) 25 ml Q30M PRN IV Hypoglycemia 03/26/18 17:00 04/25/18 16:59 Dextrose (Dextrose 50%) 50 ml Q30M PRN IV Hypoglycemia 03/26/18 17:00 04/25/18 16:59 Diphenhydramine HCl (Benadryl) 25 mg Q6H PRN ORAL Itching 03/27/18 00:30 04/26/18 00:29 Furosemide (Lasix) 40 mg EVERY 12 HOURS IV 03/26/18 21:00 04/25/18 20:59 03/28/18 21:20 Ibuprofen (Advil) 400 mg ONCE ORAL 03/29/18 08:30 03/29/18 09:30 03/29/18 08:33 Insulin Aspart (NovoLOG) BEFORE MEALS AND HS SUBQ 03/26/18 21:00 04/25/18 20:59 03/28/18 21:23 Lisinopril (Zestril) 10 mg DAILY ORAL 03/27/18 09:00 04/26/18 08:59 03/28/18 09:09 Lorazepam (Ativan) 1 mg Q6H PRN ORAL For Anxiety 03/28/18 11:45 04/04/18 11:44 03/28/18 22:48 Oseltamivir Phosphate (Tamiflu) 30 mg DAILY ORAL 03/29/18 09:00 04/03/18 08:59 03/29/18 08:35 Pregabalin (Lyrica) 25 mg TID ORAL 03/28/18 09:00 04/27/18 08:59 03/29/18 08:33 Spironolactone (Aldactone) 25 mg DAILY ORAL 03/27/18 09:00 04/26/18 08:59 03/28/18 09:08 Tramadol HCl (Ultram) 50 mg Q12H PRN ORAL Pain 03/28/18 09:00 04/04/18 08:59 03/28/18 09:08 Casa Silvestre MD Mar 29, 2018 09:00
--- NOTE | 2018-03-29 09:59 | NUR ---
NURSE NOTES: Spoke to Dr. Mccurdy. about temperature retaken at 9:05am and 9:45am at 101.5F. Will recheck in one hour. Addendum: 03/29/18 at 2024 by Mitch Guevara RN Temperature was 99.5 at 11am
--- NOTE | 2018-03-29 10:45 | General Progress Note ---
Assessment/Plan Assessment/Plan #Severe sepsis due to multifocal pneumonia, present on admission #CT chest shows Evidence of right middle lobe airspace disease also likely present within posterior basilar aspects of the lower lobes. -continue with IV antibiotics -follow up blood culture -use cooling blanket for fever, avoid Tylenol and NSAIDS -Pulmonology and ID following #SERG, creatinine up to 2.5 -will give IV hydration -hold all nephrotoxic meds -Nephrology consutled -check daily BMP #Acute on chronic systolic CHF, resolving #history of atrial fibrillation continue telemetry Cardiology following stop Lasix given SERG hold Coreg due to mild hypotension hold Aldactone due to SERG hold lisinopril due to SERG stop amiodarone due to abnormal LFS Eliquis held due to abnormal LFTs monitor I&O Daily weights 2 gram sodium diet #COPD, mild exacerbation -start Duoneb -hold systemic steroids for now #Mild hypokalemia -labs pending #Abnormal LFTs #Suspected congestive hepatopathy -worsening LFTs -RUQ US unremarkable -GI eval appreciated -Eliquis held per pharmacy recs -Tramadol dose reduced per pharmacy recs #Morbid Obesity #Reported history of DMII -start ISS for now -Diabetic diet VTE PPx heparin SC Full Code Subjective Date patient seen: Mar 29, 2018 Time patient seen: 10:00 ROS Limited/Unobtainable: No Constitutional: Reports: fever; Denies: chills HEENT: Reports: mouth pain Cardiovascular: Denies: chest pain, edema Respiratory: Reports: cough; Denies: shortness of breath Gastrointestinal/Abdominal: Reports: abdomen distended, abdominal pain Allergies: Coded Allergies: CODEINE (Verified Allergy, Unknown, Itching, 03/26/18) Subjective Medicine followup for severe sepsisis due to multifocal pneumonia, SERG, acute CHF. Complains of sore throat Intermittently febrile. Objective Last 24 Hour Vital Signs Date Time Temp Pulse Resp B/P (MAP) Pulse Ox O2 Delivery O2 Flow Rate FiO2 03/29/18 09:03 101.5 03/29/18 09:03 101.3 03/29/18 08:42 Nasal Cannula 2.0 03/29/18 08:22 104/60 03/29/18 08:21 72 104/60 03/29/18 07:58 101.3 72 18 104/60 (75) 95 03/29/18 07:57 63 03/29/18 07:33 68 18 97 Nasal Cannula 4.0 36 03/29/18 07:25 Nasal Cannula 4.0 36 03/29/18 07:25 92 Nasal Cannula 4.0 36 03/29/18 07:25 68 16 92 Nasal Cannula 4.0 36 03/29/18 04:00 99.4 71 18 115/56 (75) 94 03/29/18 04:00 67 03/29/18 02:49 60 14 97 Nasal Cannula 4.0 36 03/29/18 02:41 62 16 92 Nasal Cannula 4.0 36 03/29/18 00:00 98.6 66 17 84/59 (67) 98 03/29/18 00:00 65 03/28/18 23:59 66 16 95 Nasal Cannula 4.0 36 03/28/18 23:52 65 16 93 Nasal Cannula 4.0 36 03/28/18 21:00 98.5 65 16 89/52 (64) 94 03/28/18 21:00 65 89/52 03/28/18 21:00 65 03/28/18 21:00 Nasal Cannula 2.0 03/28/18 19:54 64 14 96 Nasal Cannula 4.0 36 03/28/18 19:46 92 Nasal Cannula 4.0 36 03/28/18 19:46 Nasal Cannula 4.0 36 03/28/18 19:44 92 16 92 Nasal Cannula 4.0 36 03/28/18 16:20 64 03/28/18 16:00 99.3 71 20 97/53 (68) 94 03/28/18 15:42 74 20 96 Nasal Cannula 2.0 28 03/28/18 15:35 72 18 93 Nasal Cannula 2.0 28 03/28/18 13:39 99.5 03/28/18 12:00 102.2 72 18 102/62 (75) 95 03/28/18 11:52 62 03/28/18 10:45 Nasal Cannula 2.0 28 03/28/18 10:45 Nasal Cannula 2.0 28 Intake and Output 03/28/18 03/29/18 19:00 07:00 Intake Total 480 ml 100 ml Balance 480 ml 100 ml Intake Oral 480 ml 100 ml # Voids 3 Laboratory Tests 03/28/18 12:56: Urine Legionella Antigen [Pending] 03/28/18 13:56: Urine Opiates Screen Negative, Urine Barbiturates Screen Negative, Phencyclidine (PCP) Screen Negative, Urine Amphetamines Screen Negative, Urine Benzodiazepines Screen Negative, Urine Cocaine Screen Negative, Urine Marijuana (THC) Screen Negative 03/28/18 16:29: Arterial Blood pH 7.437, Arterial Blood Partial Pressure CO2 40.1, Arterial Blood Partial Pressure O2 57.6L, Arterial Blood HCO3 26.4H, Arterial Blood Oxygen Saturation 89.9*L, Arterial Blood Base Excess 2.1H, Fran Test Positive 03/28/18 18:40: Legionella pneumophila Group 1 Ab [Pending], Legionella pneumophilia IgM Group 1 [Pending], Mycoplasma pneumoniae IgG Antibody [Pending], Mycoplasma pneumoniae IgM Ab Titer [Pending] 03/28/18 21:00: Cytomegalovirus IgG Antibody [Pending], Lisa-Odom Virus Capsid Ag IgG Ab [ Pending], Lisa-Odom Virus Capsid Ag IgM Ab [Pending] 03/29/18 05:40: White Blood Count 2.2L, Red Blood Count 3.83L, Hemoglobin 11.8L, Hematocrit 35.6L, Mean Corpuscular Volume 93, Mean Corpuscular Hemoglobin 30.8, Mean Corpuscular Hemoglobin Concent 33.2, Red Cell Distribution Width 13.9, Platelet Count 76L, Mean Platelet Volume 9.9, Neutrophils (%) (Auto) , Lymphocytes (%) ( Auto) , Monocytes (%) (Auto) , Eosinophils (%) (Auto) , Basophils (%) (Auto) , Neutrophils % (Manual) [Pending], Lymphocytes % (Manual) [Pending], Platelet Estimate [Pending], Platelet Morphology [Pending], Sodium Level 135L, Potassium Level 3.7, Chloride Level 98, Carbon Dioxide Level 27, Anion Gap 10, Blood Urea Nitrogen 34H, Creatinine 2.5#H, Estimat Glomerular Filtration Rate 24.1, Glucose Level 94, Calcium Level 9.1, Total Bilirubin 1.3H, Direct Bilirubin 0.8H , Aspartate Amino Transf (AST/SGOT) 2531H, Alanine Aminotransferase (ALT/SGPT) 2065H, Alkaline Phosphatase 162H, Total Protein 7.0, Albumin 2.9L, Globulin 4.1 , Albumin/Globulin Ratio 0.7L Height (Feet): 5 Height (Inches): 0.00 Weight (Pounds): 205 General Appearance: no apparent distress, alert EENT: normal ENT inspection Neck: non-tender, normal alignment Respiratory/Chest: lungs clear, normal breath sounds, no respiratory distress Abdomen: normal bowel sounds, non tender, soft Declan Crespo MD Mar 29, 2018 10:45
--- NOTE | 2018-03-29 11:31 | Consultation ---
Consult Note Consult Note asked to eval for rising Cr 67-year-old female presents to the emergency department complaining of cough, wheezing, shortness of breath with history of COPD, CHF and diabetes. pt. reports chills but denies fevers. She states that she has an albuterol inhaler at home but it has not been helping. Denies LE edema. Allergies: CODEINE (Verified Allergy, Unknown, Itching, 03/26/18) Hx Hypertension: Yes Hx COPD: Yes Hx 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 interviewed examined data reviewed . Assessment/Plan Acute renal failure- Elevated liver enzymes Low BP Pneumonia Atrial Fib Pacer COPD Obesity Dc Diuretics Huizar Urine studies Fluid challenge watch for CHF Sxs monitor renal parameters Elliot Figueroa MD Mar 29, 2018 11:31
[2018-03-29 12:00] VITALS: BP 107/59
[2018-03-29] MEDS: traMADol 50mg tab ORAL PRN (12:46)
--- NOTE | 2018-03-29 14:14 | Cardiac Electrophysiology PN ---
Assessment/Plan Assessment/Plan 1. Exacerbation of congestive heart failure due to Diastolic dysfunction. BNP of more than 3000. EF 55%. Lasix, Coreg, Lisinopril and Aldactone were all DCed for low BP 80s 2. Status post [employer] defibrillator implantation in 03/2017 3. Cough and hemoptysis. Was on Eliquis at home that was DCed. 4. Elevated AST and ALT in the thousands. Hepatitis panel is pending, but could be secondary to hepatic congestion and secondary to congestive heart failure. Amiodarone DCed 5. Fever, recurrent. On iv Abx per ID and Pulmonary 6. Hypotension and renal failure Cr 2.5 All BP /CHF neds were DCed. Has a alissa JONAS RN Subjective Subjective In SR. BP was in 80s. All CHF meds were DCed. On iv Abx Objective Last 24 Hour Vital Signs Date Time Temp Pulse Resp B/P (MAP) Pulse Ox O2 Delivery O2 Flow Rate FiO2 03/29/18 12:04 72 18 96 Nasal Cannula 4.0 36 03/29/18 11:55 72 16 92 Nasal Cannula 4.0 36 03/29/18 09:03 101.5 03/29/18 09:03 101.3 03/29/18 08:42 Nasal Cannula 2.0 03/29/18 08:22 104/60 03/29/18 08:21 72 104/60 03/29/18 07:58 101.3 72 18 104/60 (75) 95 03/29/18 07:57 63 03/29/18 07:33 68 18 97 Nasal Cannula 4.0 36 03/29/18 07:25 Nasal Cannula 4.0 36 03/29/18 07:25 92 Nasal Cannula 4.0 36 03/29/18 07:25 68 16 92 Nasal Cannula 4.0 36 03/29/18 04:00 99.4 71 18 115/56 (75) 94 03/29/18 04:00 67 03/29/18 02:49 60 14 97 Nasal Cannula 4.0 36 03/29/18 02:41 62 16 92 Nasal Cannula 4.0 36 03/29/18 00:00 98.6 66 17 84/59 (67) 98 03/29/18 00:00 65 03/28/18 23:59 66 16 95 Nasal Cannula 4.0 36 03/28/18 23:52 65 16 93 Nasal Cannula 4.0 36 03/28/18 21:00 98.5 65 16 89/52 (64) 94 03/28/18 21:00 65 89/52 03/28/18 21:00 65 03/28/18 21:00 Nasal Cannula 2.0 03/28/18 19:54 64 14 96 Nasal Cannula 4.0 36 03/28/18 19:46 92 Nasal Cannula 4.0 36 03/28/18 19:46 Nasal Cannula 4.0 36 03/28/18 19:44 92 16 92 Nasal Cannula 4.0 36 03/28/18 16:20 64 03/28/18 16:00 99.3 71 20 97/53 (68) 94 03/28/18 15:42 74 20 96 Nasal Cannula 2.0 28 03/28/18 15:35 72 18 93 Nasal Cannula 2.0 28 Intake and Output 03/28/18 03/29/18 19:00 07:00 Intake Total 480 ml 100 ml Balance 480 ml 100 ml Intake Oral 480 ml 100 ml # Voids 3 Laboratory Tests Test 03/28/18 16:29 03/28/18 18:40 03/28/18 21:00 03/29/18 05:40 Arterial Blood pH 7.437 (7.350-7.450) Arterial Blood Partial Pressure CO2 40.1 mmHg (35.0-45.0) Arterial Blood Partial Pressure O2 57.6 mmHg (75.0-100.0) L Arterial Blood HCO3 26.4 mmol/L (22.0-26.0) H Arterial Blood Oxygen Saturation 89.9 % (95-100) *L Arterial Blood Base Excess 2.1 (-2-2) H Fran Test Positive Legionella pneumophila Group 1 Ab Pending Legionella pneumophilia IgM Group 1 Pending Mycoplasma pneumoniae IgG Antibody Pending Mycoplasma pneumoniae IgM Ab Titer Pending Cytomegalovirus IgG Antibody Pending Lisa-Odom Virus Capsid Ag IgG Ab Pending Lisa-Odom Virus Capsid Ag IgM Ab Pending White Blood Count 2.2 K/UL (4.8-10.8) L Red Blood Count 3.83 M/UL (4.20-5.40) L Hemoglobin 11.8 G/DL (12.0-16.0) L Hematocrit 35.6 % (37.0-47.0) L Mean Corpuscular Volume 93 FL (80-99) Mean Corpuscular Hemoglobin 30.8 PG (27.0-31.0) Mean Corpuscular Hemoglobin Concent 33.2 G/DL (32.0-36.0) Red Cell Distribution Width 13.9 % (11.6-14.8) Platelet Count 76 K/UL (150-450) L Mean Platelet Volume 9.9 FL (6.5-10.1) Neutrophils (%) (Auto) % (45.0-75.0) Lymphocytes (%) (Auto) % (20.0-45.0) Monocytes (%) (Auto) % (1.0-10.0) Eosinophils (%) (Auto) % (0.0-3.0) Basophils (%) (Auto) % (0.0-2.0) Differential Total Cells Counted 100 Neutrophils % (Manual) 59 % (45-75) Lymphocytes % (Manual) 20 % (20-45) Monocytes % (Manual) 6 % (1-10) Eosinophils % (Manual) 0 % (0-3) Basophils % (Manual) 1 % (0-2) Band Neutrophils 14 % (0-8) H Platelet Estimate Decreased L Platelet Morphology Normal Red Blood Cell Morphology Normal Sodium Level 135 MMOL/L (136-145) L Potassium Level 3.7 MMOL/L (3.5-5.1) Chloride Level 98 MMOL/L (98-107) Carbon Dioxide Level 27 MMOL/L (21-32) Anion Gap 10 mmol/L (5-15) Blood Urea Nitrogen 34 mg/dL (7-18) H Creatinine 2.5 MG/DL (0.55-1.30) #H Estimat Glomerular Filtration Rate 24.1 mL/min (>60) Glucose Level 94 MG/DL (74-106) Calcium Level 9.1 MG/DL (8.5-10.1) Total Bilirubin 1.3 MG/DL (0.2-1.0) H Direct Bilirubin 0.8 MG/DL (0.0-0.3) H Aspartate Amino Transf (AST/SGOT) 2531 U/L (15-37) H Alanine Aminotransferase (ALT/SGPT) 2065 U/L (12-78) H Alkaline Phosphatase 162 U/L (46-116) H C-Reactive Protein, Quantitative 9.3 mg/dL (0.00-0.90) H Total Protein 7.0 G/DL (6.4-8.2) Albumin 2.9 G/DL (3.4-5.0) L Globulin 4.1 g/dL Albumin/Globulin Ratio 0.7 (1.0-2.7) L Microbiology Date/Time Source Procedure Growth Status 03/28/18 17:00 Nasal Nares Influenza Types A,B Antigen (ANGELIKA) - Final Complete 03/28/18 15:25 Sputum Expectorated Gram Stain - Final Resulted 03/28/18 15:25 Sputum Expectorated Sputum Culture - Preliminary NORMAL UPPER RESPIRATORY HERLINDA AT 24 ... Resulted Objective HEAD AND NECK: Mild JVD. LUNGS: Decreased breath sounds. CARDIOVASCULAR: Regular S1 and S2 with no gallop. ABDOMEN: Soft. EXTREMITIES: Trace pitting edema. ICD in left subclavian. Yusuf Byrnes MD Mar 29, 2018 14:14
[2018-03-29 16:00] VITALS: BP 130/74
--- NOTE | 2018-03-29 16:21 | GI Progress Note ---
Assessment/Plan Problems: (1) Shock liver ICD Codes: K72.00 - Acute and subacute hepatic failure without coma SNOMED: 706681574 (2) CHF (congestive heart failure) ICD Codes: I50.9 - Heart failure, unspecified SNOMED: 05869781 Qualifiers: Qualified Codes: I50.9 - Heart failure, unspecified (3) Transaminitis ICD Codes: R74.0 - Nonspecific elevation of levels of transaminase and lactic acid dehydrogenase [LDH] SNOMED: 318776829, [id number] Status: progressing, unchanged Status Narrative Discussed with Dr. Pate Assessment/Plan Negative abdominal ultrasound Most likely liver shock due to ischemia Hepatitis panel to rule out any viral cause >> negative utox r/o drug induced >> negative Will consider autoimmune markers if necessary okay to advance diet trend LFTs fu pulmonary recs follow labs The patient was seen and examined at bedside and all new and available data was reviewed in the patients chart. I agree with the above findings, impression and plan. (Patient seen earlier today. Signature stamp does not reflect patient encounter time.). - Salvador Pate MD Subjective Gastrointestinal/Abdominal: Reports: no symptoms Objective Last 24 Hour Vital Signs Date Time Temp Pulse Resp B/P (MAP) Pulse Ox O2 Delivery O2 Flow Rate FiO2 03/29/18 13:16 99.5 03/29/18 12:30 Nasal Cannula 2.0 03/29/18 12:04 72 18 96 Nasal Cannula 4.0 36 03/29/18 12:00 99.0 69 18 107/59 (75) 95 03/29/18 11:55 72 16 92 Nasal Cannula 4.0 36 03/29/18 09:03 101.5 03/29/18 09:03 101.3 03/29/18 08:42 Nasal Cannula 2.0 03/29/18 08:22 104/60 03/29/18 08:21 72 104/60 03/29/18 07:58 101.3 72 18 104/60 (75) 95 03/29/18 07:57 63 03/29/18 07:33 68 18 97 Nasal Cannula 4.0 36 03/29/18 07:25 Nasal Cannula 4.0 36 03/29/18 07:25 92 Nasal Cannula 4.0 36 03/29/18 07:25 68 16 92 Nasal Cannula 4.0 36 03/29/18 04:00 99.4 71 18 115/56 (75) 94 03/29/18 04:00 67 03/29/18 02:49 60 14 97 Nasal Cannula 4.0 36 03/29/18 02:41 62 16 92 Nasal Cannula 4.0 36 03/29/18 00:00 98.6 66 17 84/59 (67) 98 03/29/18 00:00 65 03/28/18 23:59 66 16 95 Nasal Cannula 4.0 36 03/28/18 23:52 65 16 93 Nasal Cannula 4.0 36 03/28/18 21:00 98.5 65 16 89/52 (64) 94 03/28/18 21:00 65 89/52 03/28/18 21:00 65 03/28/18 21:00 Nasal Cannula 2.0 03/28/18 19:54 64 14 96 Nasal Cannula 4.0 36 03/28/18 19:46 92 Nasal Cannula 4.0 36 03/28/18 19:46 Nasal Cannula 4.0 36 03/28/18 19:44 92 16 92 Nasal Cannula 4.0 36 03/28/18 16:20 64 Intake and Output 03/28/18 03/29/18 19:00 07:00 Intake Total 480 ml 100 ml Balance 480 ml 100 ml Intake Oral 480 ml 100 ml # Voids 3 Laboratory Tests Test 03/28/18 16:29 03/28/18 18:40 03/28/18 21:00 03/29/18 05:40 Arterial Blood pH 7.437 (7.350-7.450) Arterial Blood Partial Pressure CO2 40.1 mmHg (35.0-45.0) Arterial Blood Partial Pressure O2 57.6 mmHg (75.0-100.0) L Arterial Blood HCO3 26.4 mmol/L (22.0-26.0) H Arterial Blood Oxygen Saturation 89.9 % (95-100) *L Arterial Blood Base Excess 2.1 (-2-2) H Fran Test Positive Legionella pneumophila Group 1 Ab Pending Legionella pneumophilia IgM Group 1 Pending Mycoplasma pneumoniae IgG Antibody Pending Mycoplasma pneumoniae IgM Ab Titer Pending Cytomegalovirus IgG Antibody Pending Lisa-Odom Virus Capsid Ag IgG Ab Pending Lisa-Odom Virus Capsid Ag IgM Ab Pending White Blood Count 2.2 K/UL (4.8-10.8) L Red Blood Count 3.83 M/UL (4.20-5.40) L Hemoglobin 11.8 G/DL (12.0-16.0) L Hematocrit 35.6 % (37.0-47.0) L Mean Corpuscular Volume 93 FL (80-99) Mean Corpuscular Hemoglobin 30.8 PG (27.0-31.0) Mean Corpuscular Hemoglobin Concent 33.2 G/DL (32.0-36.0) Red Cell Distribution Width 13.9 % (11.6-14.8) Platelet Count 76 K/UL (150-450) L Mean Platelet Volume 9.9 FL (6.5-10.1) Neutrophils (%) (Auto) % (45.0-75.0) Lymphocytes (%) (Auto) % (20.0-45.0) Monocytes (%) (Auto) % (1.0-10.0) Eosinophils (%) (Auto) % (0.0-3.0) Basophils (%) (Auto) % (0.0-2.0) Differential Total Cells Counted 100 Neutrophils % (Manual) 59 % (45-75) Lymphocytes % (Manual) 20 % (20-45) Monocytes % (Manual) 6 % (1-10) Eosinophils % (Manual) 0 % (0-3) Basophils % (Manual) 1 % (0-2) Band Neutrophils 14 % (0-8) H Platelet Estimate Decreased L Platelet Morphology Normal Red Blood Cell Morphology Normal Sodium Level 135 MMOL/L (136-145) L Potassium Level 3.7 MMOL/L (3.5-5.1) Chloride Level 98 MMOL/L (98-107) Carbon Dioxide Level 27 MMOL/L (21-32) Anion Gap 10 mmol/L (5-15) Blood Urea Nitrogen 34 mg/dL (7-18) H Creatinine 2.5 MG/DL (0.55-1.30) #H Estimat Glomerular Filtration Rate 24.1 mL/min (>60) Glucose Level 94 MG/DL (74-106) Calcium Level 9.1 MG/DL (8.5-10.1) Total Bilirubin 1.3 MG/DL (0.2-1.0) H Direct Bilirubin 0.8 MG/DL (0.0-0.3) H Aspartate Amino Transf (AST/SGOT) 2531 U/L (15-37) H Alanine Aminotransferase (ALT/SGPT) 2065 U/L (12-78) H Alkaline Phosphatase 162 U/L (46-116) H C-Reactive Protein, Quantitative 9.3 mg/dL (0.00-0.90) H Total Protein 7.0 G/DL (6.4-8.2) Albumin 2.9 G/DL (3.4-5.0) L Globulin 4.1 g/dL Albumin/Globulin Ratio 0.7 (1.0-2.7) L Microbiology Date/Time Source Procedure Growth Status 03/28/18 17:00 Nasal Nares Influenza Types A,B Antigen (ANGELIKA) - Final Complete Height (Feet): 5 Height (Inches): 0.00 Weight (Pounds): 205 General Appearance: WD/WN, no apparent distress, alert Cardiovascular: normal rate Respiratory/Chest: normal breath sounds, no respiratory distress Abdominal Exam: normal bowel sounds, non tender, soft Extremities: normal range of motion, non-tender Johnny Roth NP Mar 29, 2018 16:21
--- NOTE | 2018-03-29 16:39 | Infectious Diseases Prog Note ---
Assessment/Plan Assessment/Plan Full consult dictated: A) 1) cap, sepsis, fevers, leukopenia, ? viral syndrome 2) elevated LFT's, ? hepatitis, ? cmv/ebv 3) pmh noted 4) allergies - codeine P) 1) rocephin, azithromycin, tamiflu for now 2) check sc, labs, bc, chest x-ray, serology 3) continue treatment per primary team 4) GI F/u 5) will f/u Subjective Constitutional: Reports: fever, other - weak but responsive HEENT: Reports: congestion - mild Respiratory: Reports: shortness of breath - mild Gastrointestinal/Abdominal: Denies: nausea, vomiting, diarrhea Genitourinary: Reports: other - + maxwell Allergies: Coded Allergies: CODEINE (Verified Allergy, Unknown, Itching, 03/26/18) Objective Vital Signs Last 24 Hour Vital Signs Date Time Temp Pulse Resp B/P (MAP) Pulse Ox O2 Delivery O2 Flow Rate FiO2 03/29/18 13:16 99.5 03/29/18 12:30 Nasal Cannula 2.0 03/29/18 12:04 72 18 96 Nasal Cannula 4.0 36 03/29/18 12:00 99.0 69 18 107/59 (75) 95 03/29/18 11:55 72 16 92 Nasal Cannula 4.0 36 03/29/18 09:03 101.5 03/29/18 09:03 101.3 03/29/18 08:42 Nasal Cannula 2.0 03/29/18 08:22 104/60 03/29/18 08:21 72 104/60 03/29/18 07:58 101.3 72 18 104/60 (75) 95 03/29/18 07:57 63 03/29/18 07:33 68 18 97 Nasal Cannula 4.0 36 03/29/18 07:25 Nasal Cannula 4.0 36 03/29/18 07:25 92 Nasal Cannula 4.0 36 03/29/18 07:25 68 16 92 Nasal Cannula 4.0 36 03/29/18 04:00 99.4 71 18 115/56 (75) 94 03/29/18 04:00 67 03/29/18 02:49 60 14 97 Nasal Cannula 4.0 36 03/29/18 02:41 62 16 92 Nasal Cannula 4.0 36 03/29/18 00:00 98.6 66 17 84/59 (67) 98 03/29/18 00:00 65 03/28/18 23:59 66 16 95 Nasal Cannula 4.0 36 03/28/18 23:52 65 16 93 Nasal Cannula 4.0 36 03/28/18 21:00 98.5 65 16 89/52 (64) 94 03/28/18 21:00 65 89/52 03/28/18 21:00 65 03/28/18 21:00 Nasal Cannula 2.0 03/28/18 19:54 64 14 96 Nasal Cannula 4.0 36 03/28/18 19:46 92 Nasal Cannula 4.0 36 03/28/18 19:46 Nasal Cannula 4.0 36 03/28/18 19:44 92 16 92 Nasal Cannula 4.0 36 Height (Feet): 5 Height (Inches): 0.00 Weight (Pounds): 205 HEENT: normocephalic, atraumatic, anicteric Respiratory/Chest: crackles/rales, rhonchi - bilaterally Cardiovascular: normal rate, regular rhythm Abdomen: normal bowel sounds, soft, non tender, no organomegaly Extremities: no cyanosis Microbiology Date/Time Source Procedure Growth Status 03/28/18 17:00 Nasal Nares Influenza Types A,B Antigen (ANGELIKA) - Final Complete 03/28/18 15:25 Sputum Expectorated Gram Stain - Final Resulted 03/28/18 15:25 Sputum Expectorated Sputum Culture - Preliminary NORMAL UPPER RESPIRATORY HERLINDA AT 24 ... Resulted Laboratory Tests Test 03/28/18 18:40 03/28/18 21:00 03/29/18 05:40 03/29/18 15:24 Legionella pneumophila Group 1 Ab Pending Legionella pneumophilia IgM Group 1 Pending Mycoplasma pneumoniae IgG Antibody Pending Mycoplasma pneumoniae IgM Ab Titer Pending Cytomegalovirus IgG Antibody Pending Lisa-Odom Virus Capsid Ag IgG Ab Pending Lisa-Odom Virus Capsid Ag IgM Ab Pending White Blood Count 2.2 K/UL (4.8-10.8) L Red Blood Count 3.83 M/UL (4.20-5.40) L Hemoglobin 11.8 G/DL (12.0-16.0) L Hematocrit 35.6 % (37.0-47.0) L Mean Corpuscular Volume 93 FL (80-99) Mean Corpuscular Hemoglobin 30.8 PG (27.0-31.0) Mean Corpuscular Hemoglobin Concent 33.2 G/DL (32.0-36.0) Red Cell Distribution Width 13.9 % (11.6-14.8) Platelet Count 76 K/UL (150-450) L Mean Platelet Volume 9.9 FL (6.5-10.1) Neutrophils (%) (Auto) % (45.0-75.0) Lymphocytes (%) (Auto) % (20.0-45.0) Monocytes (%) (Auto) % (1.0-10.0) Eosinophils (%) (Auto) % (0.0-3.0) Basophils (%) (Auto) % (0.0-2.0) Differential Total Cells Counted 100 Neutrophils % (Manual) 59 % (45-75) Lymphocytes % (Manual) 20 % (20-45) Monocytes % (Manual) 6 % (1-10) Eosinophils % (Manual) 0 % (0-3) Basophils % (Manual) 1 % (0-2) Band Neutrophils 14 % (0-8) H Platelet Estimate Decreased L Platelet Morphology Normal Red Blood Cell Morphology Normal Sodium Level 135 MMOL/L (136-145) L Potassium Level 3.7 MMOL/L (3.5-5.1) Chloride Level 98 MMOL/L (98-107) Carbon Dioxide Level 27 MMOL/L (21-32) Anion Gap 10 mmol/L (5-15) Blood Urea Nitrogen 34 mg/dL (7-18) H Creatinine 2.5 MG/DL (0.55-1.30) #H Estimat Glomerular Filtration Rate 24.1 mL/min (>60) Glucose Level 94 MG/DL (74-106) Calcium Level 9.1 MG/DL (8.5-10.1) Total Bilirubin 1.3 MG/DL (0.2-1.0) H Direct Bilirubin 0.8 MG/DL (0.0-0.3) H Aspartate Amino Transf (AST/SGOT) 2531 U/L (15-37) H Alanine Aminotransferase (ALT/SGPT) 2065 U/L (12-78) H Alkaline Phosphatase 162 U/L (46-116) H C-Reactive Protein, Quantitative 9.3 mg/dL (0.00-0.90) H Total Protein 7.0 G/DL (6.4-8.2) Albumin 2.9 G/DL (3.4-5.0) L Globulin 4.1 g/dL Albumin/Globulin Ratio 0.7 (1.0-2.7) L Urine Random Sodium 39 mmol/L (20-110) Current Medications Medications (Trade) Dose Ordered Sig/Arvind Route PRN Reason Start Time Stop Time Status Last Admin Dose Admin Albuterol/ Ipratropium (Albuterol/ Ipratropium) 3 ml Q4H PRN HHN Shortness of Breath 03/26/18 17:00 03/31/18 16:59 03/27/18 12:00 Albuterol/ Ipratropium (Albuterol/ Ipratropium) 3 ml Q4HRT HHN 03/27/18 15:00 04/01/18 14:59 03/29/18 11:55 Azithromycin 250 mg/Dextrose 250 ml @ 250 mls/hr Q24HRS IV 03/29/18 15:00 04/05/18 14:59 03/29/18 15:14 Ceftriaxone Sodium 1 gm/ Dextrose 50 ml @ 100 mls/hr Q24H IVPB 03/28/18 16:00 04/04/18 15:59 03/28/18 18:22 Cetylpyridinium Chloride (Cepacol) 1 lozg Q2H PRN REBECCA for sore throat 03/29/18 10:45 04/28/18 10:44 03/29/18 12:46 Dextrose (Dextrose 50%) 25 ml Q30M PRN IV Hypoglycemia 03/26/18 17:00 04/25/18 16:59 Dextrose (Dextrose 50%) 50 ml Q30M PRN IV Hypoglycemia 03/26/18 17:00 04/25/18 16:59 Diphenhydramine HCl (Benadryl) 25 mg Q6H PRN ORAL Itching 03/27/18 00:30 04/26/18 00:29 Insulin Aspart (NovoLOG) BEFORE MEALS AND HS SUBQ 03/26/18 21:00 04/25/18 20:59 03/28/18 21:23 Lorazepam (Ativan) 1 mg Q6H PRN ORAL For Anxiety 03/28/18 11:45 04/04/18 11:44 2/8/19 22:48 Oseltamivir Phosphate (Tamiflu) 30 mg DAILY ORAL 03/29/18 09:00 04/03/18 08:59 03/29/18 08:35 Sodium Chloride 1,000 ml @ 75 mls/hr [id number] IV 03/29/18 11:00 04/28/18 10:59 03/29/18 11:57 Tramadol HCl (Ultram) 50 mg Q12H PRN ORAL Pain 03/28/18 09:00 04/04/18 08:59 03/29/18 12:46 Sj Wren MD Mar 29, 2018 16:39
[2018-03-29] MEDS: cefTRIAXone 1 GM in D5W 50 ML IVPB SCH (18:13)
--- NOTE | 2018-03-29 18:15 | Consultation ---
DATE OF CONSULTATION: 03/29/2018 INFECTIOUS DISEASE CONSULTATION CONSULTING PHYSICIAN: Sj Wren M.D. ATTENDING PHYSICIAN: Elizabet Capps M.D. REFERRING PHYSICIAN: Dr. Declan Quintanilla REASON FOR CONSULTATION: Community-acquired pneumonia, sepsis, and fevers. CHIEF COMPLAINT: The patient's chief complaint coming into the hospital is pneumonia and congestive heart failure. HPI: This is a 57-year-old female, who comes in to [facility] with cough, bloody sputum, wheezing, and shortness of breath. The patient was admitted for pneumonia. The patient was started on Rocephin and azithromycin. The patient also has leukopenia and febrile and could have underlying sepsis. Infectious Disease consultation is requested for antibiotic management in this patient. The patient was on Rocephin and azithromycin, which was continued. Sputum culture so far is negative. Influenza screen was negative. However, she has high index suspicion for influenza infection also with persistent fevers. I would continue the patient on Tamiflu in addition to Rocephin and azithromycin. The patient also had elevated LFTs and serology was ordered for hepatitis, which is negative. I also ordered serology for cytomegalovirus and Lisa-Odom virus. The patient is being followed by GI. MAR was noted. Orders were noted. Notes and records were reviewed. PAST MEDICAL HISTORY: The patient's past medical history includes the history of the following. The patient has a past medical history of congestive heart failure. She has an automatic implanted cardioverter-defibrillator or pacemaker. She has history of chronic obstructive pulmonary disease. She has history of CVA. She has history of hypertension. She has history of hyperlipidemia, diabetes, congestive heart failure, defibrillator, pacemaker, chronic obstructive pulmonary disease, CVA, hypertension, hyperlipidemia, dyslipidemia, and diabetes. She also has history of cholecystectomy and automatic implanted cardioverter-defibrillator. MEDICATIONS: Upon reviewing the MAR, the patient is on the following off all medications. She is on azithromycin. She is on sodium chloride. She is on Cepacol. She is on Tamiflu. She is on Rocephin. She is on lorazepam, tramadol, and albuterol. She is on diphenhydramine insulin. She is on intravenous fluids. Outside medications noted and reconciliated. ALLERGIES: Codeine. No antibiotic allergies. SOCIAL HISTORY: She is a past smoker. Currently, no alcohol, drug abuse, or smoking. FAMILY HISTORY: Negative for tuberculosis or cancer. Noncontributory. REVIEW OF SYSTEMS: CONSTITUTIONAL: The patient is responsive. She has a Huizar. She has generalized fatigue. No new focal weakness. HEAD AND NECK: No head pain or neck pain. No neck stiffness. CARDIAC: No chest pain or palpitations. No pressors. GASTROINTESTINAL: No nausea, vomiting, or diarrhea. GENITOURINARY: She has a Huizar. PULMONARY: She came in with bloody sputum, cough, and congestion. She has no significant secretions currently or hemoptysis currently. SKIN: No rash or itching. EXTREMITIES: No extremity pain. NEUROLOGIC: No seizures. She has no focal weakness. Generalized fatigue. She came in with fever and chills. She has persistent fevers, but low-grade today. No seizure activity or rash. PHYSICAL EXAMINATION: VITAL SIGNS: T-max 101.3, currently temp is 99.5, pulse rate 72, respiratory rate 18, saturation 96% on nasal cannula 4 liters, and blood pressure 107/59. T-max otherwise was 102.2. Heart rate has been as high as 82 and respiratory rate has been as high as 20. PHYSICAL EXAMINATION: VITAL SIGNS: Temperature is 99.5, pulse rate 72, respiratory rate 18, and saturating 96% on FiO2 4 liters. T-max 102.2. T-max today is 101.3. Heart rate has been as high in the 80s and respiratory rate as high as 20. GENERAL: The patient is sleeping, but is arousable. She is in no acute distress. Mild congestion noted. No hemoptysis noted. HEAD AND NECK: Oral exam, no thrush. Eye exam, no icterus. Neck is supple. No JVD. Normocephalic. HEART: Regular. No obvious gallop or murmur. ABDOMEN: Soft. Positive bowel sounds. Nontender. LUNGS: Bilateral rhonchi and rales. SKIN: No rash. MUSCULOSKELETAL: No effusions. Legs are without cellulitis. PERIPHERAL VASCULAR: No cyanosis or gangrene. GENITOURINARY: She has a Huizar. Urine is slightly cloudy. LINE SITES: Without phlebitis. NEUROLOGIC: General weakness. Responsive. LABORATORY DATA: Laboratories data is as follows. UA, C and S has been ordered and pending. White count 2.2, hemoglobin 11.8, and platelet count is 76,000. Creatinine is 2.5, which is increased. LDH is 3430. LFTs were noted. Her AST is 2531, ALT is 2065, and alkaline phosphatase 162. UA, C and S and blood cultures are pending. SEROLOGY: Hepatitis screen is negative. Cytomegalovirus and Lisa-Odom virus is pending. Legionella and mycoplasma are pending. Sputum cultures, the patient's influenza screen is negative. However, this is an antigen test not a PCR. Sputum culture so far is negative at 24 hours. IMAGING STUDIES: CT scan of the chest shows right middle lobe airspace disease and also posterior basilar aspect of the left lower lobe. Chest x-ray showed right basilar infiltrate. Sputum culture negative so far. Blood, UA, and C and S are pending. Influenza screen is negative and not PCR. ASSESSMENT AND PLAN: 1. The patient likely has community-acquired pneumonia, rule out viral syndrome such as influenza. Influenza screen is negative, however, this is not a PCR test and sensitivity test is not very high. She has findings consistent with community-acquired pneumonia on CT scan and chest x-ray. She also looks like she could be septic. She has fevers and leukopenia. The patient will be continued on Rocephin and azithromycin to cover community-acquired pneumonia and also Tamiflu to cover influenza infection. The patient will be continued on Rocephin, azithromycin, and Tamiflu. Check followup laboratories and chest x-ray. Check Legionella and mycoplasma. Check final sputum culture. Monitor the patient's temperatures. Continue treatment per Pulmonary medicine. I will add metronidazole to cover for aspiration pneumonia since the patient does have a history of CVA. 2. Elevated LFTs. Hepatitis panel is negative. The patient had an abdominal ultrasound, which showed no acute findings. She has history of cholecystectomy. GI is following for elevated LFTs. I have also ordered cytomegalovirus and Lisa-Odom virus serology. Of note, human immunodeficiency virus test is negative. 3. The patient has a history of chronic obstructive pulmonary disease. 4. Congestive heart failure. 5. Atrial fibrillation with cardiac defibrillator pacemaker. 6. Diabetes. 7. Hypertension. 8. Dyslipidemia and hyperlipidemia. 9. Diabetes and hypertension. Treatment per primary. 10. History of CVA. 11. Aspiration risk. 12. She is allergic to codeine. 13. Socially, positive for being a former smoker. 14. MAR was noted. 15. Case was discussed with RN. 16. Family history is noncontributory. 17. Continue treatment per primary consultants. 18. Notes and records were noted. Orders were entered. Sj Wren M.D. DR: ROXANN JOB#: [id number] CC:
--- NOTE | 2018-03-29 19:15 | NUR ---
NURSE NOTES: Received report form Mitch RN, pt. in bed awake, pt. is A/O x's4- able to make her needs known, no signs of distress noted cardiac or respiratory, bed in lowest position and call light within easy reach, bed alarm on, side rails up x's3 and safety brakes engaged, pt. appears to be resting comfortably and no distress noted, cardiac monitoring on, pt. appears to be sating well on room air at 95%- no distress noted, Huizar intact and draining to gravity, Rt. hand 22G IV intact and patent running Ns at 75cc/hr, comfort measures provided, safety measures continued, will continue with plan of care.
[2018-03-29 20:00] VITALS: BP 111/58
[2018-03-29] MEDS ORDERED: NS 500ML ONE (20:00)
[2018-03-29] MEDS ORDERED: Tubing IV Secondary IV ONE (20:00)
[2018-03-29] MEDS: LORazepam 1mg tab ORAL PRN (20:03)
--- NOTE | 2018-03-29 20:25 | NUR ---
NURSE NOTES: 17:00: Patient stating she has severe back pain and refusing food. Called Dr. Mullins. Received order.
--- NOTE | 2018-03-29 20:26 | NUR ---
HAND-OFF: Report given to FRIDA Washington. patient on phone and resting in bed.
[2018-03-30] VITALS: BP 117/63
[2018-03-30] MEDS: LORazepam 1mg tab ORAL PRN (03:13)
[2018-03-30] MEDS: Albuterol/Ipratropium 3ml neb HHN SCH ×6 (03:14→23:58)
[2018-03-30 04:00] VITALS: BP 128/67
[2018-03-30] MEDS: NovoLOG Insulin Flexpen SUBQ SCH ×4 (06:15→21:25)
--- NOTE | 2018-03-30 07:22 | NUR ---
HAND-OFF: Report given to Kira Rn, pt. remains stable and no signs of distress noted.
--- NOTE | 2018-03-30 07:22 | NUR ---
NURSE NOTES: Report received from FRIDA Washington. Patient awake. In 2L NC. Denies any pain or SOB. IV running NS at 75mL. Bed on lowest position, side rails upx2, brakes engaged. Call light within easy reach.
[2018-03-30 07:45] LABS: MEAN CORPUSCULAR VOLUME 94 FL (80-99); PLATELET COUNT 80 K/UL (150-450); RED BLOOD COUNT 3.52 M/UL (4.20-5.40); RED CELL DISTRIBUTION WIDTH 13.7 % (11.6-14.8); WHITE BLOOD COUNT 2.8 K/UL (4.8-10.8)
[2018-03-30 08:00] VITALS: BP 122/66
[2018-03-30 08:09] LABS: ALANINE AMINOTRANSFERASE 1197 U/L (12-78); ALBUMIN 2.9 G/DL (3.4-5.0); ALBUMIN/GLOBULIN RATIO 0.8 (1.0-2.7); ALKALINE PHOSPHATASE 142 U/L (46-116); ANION GAP 9 mmol/L (5-15); ASPARTATE AMINO TRANSFERASE 1510 U/L (15-37); BILIRUBIN,TOTAL 0.7 MG/DL (0.2-1.0); BLOOD UREA NITROGEN 20 mg/dL (7-18); CALCIUM 8.3 MG/DL (8.5-10.1); CARBON DIOXIDE 28 MMOL/L (21-32); CHLORIDE 101 MMOL/L (98-107); CHOLESTEROL 122 MG/DL (< 200); CREATININE 1.1 MG/DL (0.55-1.30); GAMMA GLUTAMYL TRANSPEPTIDASE 620 U/L (5-85); HDL CHOLESTEROL 23 MG/DL (40-60); PHOSPHORUS 2.3 MG/DL (2.5-4.9); POTASSIUM 4.1 MMOL/L (3.5-5.1); SODIUM 138 MMOL/L (136-145); TRIGLYCERIDES 74 MG/DL (30-150)
--- NOTE | 2018-03-30 09:43 | Diagnostic Imaging Report ---
EXAM: XR Chest, 1 View CLINICAL HISTORY: INFECT TECHNIQUE: Frontal view of the chest. COMPARISON: Chest x-ray, 03/28/18 1236 FINDINGS: Lungs: Worsening bilateral airspace opacities, worse in the right mid to lower lung. Findings worrisome for edema versus pneumonia. Pleural space: Unremarkable. No pneumothorax. Heart: Cardiomegaly. Mediastinum: Unremarkable. Bones/joints: Degenerative changes of the spine. Tubes, lines and devices: Cardiac pacemaker. IMPRESSION: Worsening bilateral airspace opacities, worse in the right mid to lower lung. Findings worrisome for worsening edema versus pneumonia.
[2018-03-30 09:45] LABS: AMMONIA 54 umol/L (11-32)
[2018-03-30] MEDS: traMADol 50mg tab ORAL PRN (11:14)
--- NOTE | 2018-03-30 11:29 | General Progress Note ---
Assessment/Plan Assessment/Plan #Severe sepsis due to multifocal pneumonia, present on admission #CT chest shows Evidence of right middle lobe airspace disease also likely present within posterior basilar aspects of the lower lobes. -continue with IV antibiotics -follow up blood culture -use cooling blanket for fever, avoid Tylenol and NSAIDS -Pulmonology and ID following #COPD, marked wheeze on exam -continue Duoneb -add Solu-Medrol -check ABG #SERG, creatinine up to 2.5, resolving -will stop IV fluids -hold all nephrotoxic meds -Nephrology following -check daily BMP #Acute on chronic systolic CHF, resolving #history of atrial fibrillation continue telemetry Cardiology following stop Lasix given SERG hold Coreg due to mild hypotension hold Aldactone due to SERG hold lisinopril due to SERG stop amiodarone due to abnormal LFS Eliquis held due to abnormal LFTs monitor I&O Daily weights 2 gram sodium diet #Mild hypokalemia -resolved #Abnormal LFTs #Suspected congestive hepatopathy -improved LFTs -RUQ US unremarkable -GI eval appreciated -Eliquis held per pharmacy recs -Tramadol dose reduced per pharmacy recs -Amiodarone held #Morbid Obesity #Reported history of DMII -ISS -Diabetic diet VTE PPx heparin SC Full Code Subjective Date patient seen: Mar 30, 2018 Time patient seen: 10:30 Constitutional: Reports: malaise; Denies: fever Cardiovascular: Denies: chest pain, irregular heart rate Respiratory: Reports: cough Gastrointestinal/Abdominal: Denies: abdomen distended, abdominal pain Genitourinary: Denies: burning, frequency Allergies: Coded Allergies: CODEINE (Verified Allergy, Unknown, Itching, 03/26/18) Subjective Medicine followup for severe sepsis due to multifocal pneumonia, SERG, acute CHF. Significant wheeze today Objective Last 24 Hour Vital Signs Date Time Temp Pulse Resp B/P (MAP) Pulse Ox O2 Delivery O2 Flow Rate FiO2 03/30/18 10:54 79 22 92 Nasal Cannula 4.0 36 03/30/18 08:00 98.2 70 20 122/66 (84) 93 03/30/18 08:00 68 03/30/18 07:44 84 20 94 Nasal Cannula 4.0 36 03/30/18 07:34 72 20 92 Nasal Cannula 4.0 36 03/30/18 07:33 92 Nasal Cannula 4.0 36 03/30/18 07:32 Nasal Cannula 4.0 36 03/30/18 04:00 98.5 75 20 128/67 (87) 94 03/30/18 04:00 74 03/30/18 03:36 86 20 94 Nasal Cannula 4.0 36 03/30/18 03:14 68 18 93 Nasal Cannula 4.0 36 03/30/18 00:00 98.5 72 20 117/63 (81) 95 03/30/18 00:00 66 03/29/18 23:33 71 20 96 Nasal Cannula 4.0 36 03/29/18 23:23 71 20 92 Nasal Cannula 4.0 36 03/29/18 21:09 Nasal Cannula 2.0 03/29/18 20:07 69 19 95 Nasal Cannula 4.0 36 03/29/18 20:00 98.2 61 20 111/58 (75) 95 03/29/18 20:00 60 03/29/18 19:49 68 19 93 Nasal Cannula 4.0 36 03/29/18 19:49 93 Nasal Cannula 4.0 36 03/29/18 19:49 Nasal Cannula 4.0 36 03/29/18 16:53 59 18 97 Nasal Cannula 4.0 36 03/29/18 16:43 61 16 93 Nasal Cannula 4.0 36 03/29/18 16:00 98.1 97 18 130/74 (92) 99 03/29/18 15:39 60 03/29/18 13:16 99.5 03/29/18 12:30 Nasal Cannula 2.0 03/29/18 12:04 72 18 96 Nasal Cannula 4.0 36 03/29/18 12:00 99.0 69 18 107/59 (75) 95 03/29/18 11:55 72 16 92 Nasal Cannula 4.0 36 03/29/18 11:44 65 Intake and Output 03/29/18 03/30/18 19:00 07:00 Intake Total 75 ml 1100 ml Output Total 500 ml 600 ml Balance -425 ml 500 ml IV Total 75 ml 1100 ml Output Urine Total 500 ml 600 ml Laboratory Tests 03/29/18 15:24: Urine Random Sodium 39 03/30/18 05:45: White Blood Count 2.8L, Red Blood Count 3.52L, Hemoglobin 11.0L, Hematocrit 33.0L, Mean Corpuscular Volume 94, Mean Corpuscular Hemoglobin 31.2H, Mean Corpuscular Hemoglobin Concent 33.3, Red Cell Distribution Width 13.7, Platelet Count 80L, Mean Platelet Volume 9.5, Neutrophils (%) (Auto) , Lymphocytes (%) ( Auto) , Monocytes (%) (Auto) , Eosinophils (%) (Auto) , Basophils (%) (Auto) , Differential Total Cells Counted 100, Neutrophils % (Manual) 71, Lymphocytes % ( Manual) 19L, Monocytes % (Manual) 9, Eosinophils % (Manual) 0, Basophils % ( Manual) 0, Band Neutrophils 1, Platelet Estimate DecreasedL, Platelet Morphology Normal, Red Blood Cell Morphology Normal, Sodium Level 138, Potassium Level 4.1, Chloride Level 101, Carbon Dioxide Level 28, Anion Gap 9, Blood Urea Nitrogen 20H, Creatinine 1.1#, Estimat Glomerular Filtration Rate > 60, Glucose Level 101, Uric Acid 3.5, Calcium Level 8.3L, Phosphorus Level 2.3L , Magnesium Level 1.8, Total Bilirubin 0.7, Gamma Glutamyl Transpeptidase 620H, Aspartate Amino Transf (AST/SGOT) 1510H, Alanine Aminotransferase (ALT/SGPT) 1197H, Alkaline Phosphatase 142H, Ammonia 54H, Pro-B-Type Natriuretic Peptide 494H, Total Protein 6.7, Albumin 2.9L, Globulin 3.8, Albumin/Globulin Ratio 0.8L , Triglycerides Level 74, Cholesterol Level 122, LDL Cholesterol 73, HDL Cholesterol 23L, Cholesterol/HDL Ratio 5.3H, Thyroid Stimulating Hormone (TSH) 0.238L Height (Feet): 5 Height (Inches): 0.00 Weight (Pounds): 205 General Appearance: no apparent distress, alert EENT: normal ENT inspection Neck: non-tender, normal alignment Cardiovascular: normal rate, regular rhythm Respiratory/Chest: no accessory muscle use, expiratory wheezing Abdomen: non tender, soft Neurologic: field account director II-XII grossly normal, no motor/sensory deficits Declan Crespo MD Mar 30, 2018 11:29
[2018-03-30 12:00] VITALS: BP 107/55
--- NOTE | 2018-03-30 12:42 | Nephrology Progress Note ---
Assessment/Plan Problem List: (1) Acute renal failure (2) Shock liver (3) Obesity (4) Pacemaker Assessment Acute renal failure- rsolved Elevated liver enzymes Low BP Pneumonia Atrial Fib Pacer COPD Obesity Plan DC Diuretics Huizar Urine studies Fluid challenge watch for CHF Sxs monitor renal parameters Subjective ROS Limited/Unobtainable: No Constitutional: Reports: malaise Objective Objective Last 24 Hour Vital Signs Date Time Temp Pulse Resp B/P (MAP) Pulse Ox O2 Delivery O2 Flow Rate FiO2 03/30/18 11:04 88 18 94 Non-Rebreather 15.0 100 03/30/18 10:54 79 22 92 Nasal Cannula 4.0 36 03/30/18 09:00 Nasal Cannula 2.0 03/30/18 08:00 98.2 70 20 122/66 (84) 93 03/30/18 08:00 68 03/30/18 07:44 84 20 94 Nasal Cannula 4.0 36 03/30/18 07:34 72 20 92 Nasal Cannula 4.0 36 03/30/18 07:33 92 Nasal Cannula 4.0 36 03/30/18 07:32 Nasal Cannula 4.0 36 03/30/18 04:00 98.5 75 20 128/67 (87) 94 03/30/18 04:00 74 03/30/18 03:36 86 20 94 Nasal Cannula 4.0 36 03/30/18 03:14 68 18 93 Nasal Cannula 4.0 36 03/30/18 00:00 98.5 72 20 117/63 (81) 95 03/30/18 00:00 66 03/29/18 23:33 71 20 96 Nasal Cannula 4.0 36 03/29/18 23:23 71 20 92 Nasal Cannula 4.0 36 03/29/18 21:09 Nasal Cannula 2.0 03/29/18 20:07 69 19 95 Nasal Cannula 4.0 36 03/29/18 20:00 98.2 61 20 111/58 (75) 95 03/29/18 20:00 60 03/29/18 19:49 68 19 93 Nasal Cannula 4.0 36 03/29/18 19:49 93 Nasal Cannula 4.0 36 03/29/18 19:49 Nasal Cannula 4.0 36 03/29/18 16:53 59 18 97 Nasal Cannula 4.0 36 2/9/19 16:43 61 16 93 Nasal Cannula 4.0 36 03/29/18 16:00 98.1 97 18 130/74 (92) 99 03/29/18 15:39 60 03/29/18 13:16 99.5 Intake and Output 03/29/18 03/30/18 19:00 07:00 Intake Total 75 ml 1100 ml Output Total 500 ml 600 ml Balance -425 ml 500 ml IV Total 75 ml 1100 ml Output Urine Total 500 ml 600 ml Laboratory Tests 03/29/18 15:24: Urine Random Sodium 39 03/30/18 05:45: White Blood Count 2.8L, Red Blood Count 3.52L, Hemoglobin 11.0L, Hematocrit 33.0L, Mean Corpuscular Volume 94, Mean Corpuscular Hemoglobin 31.2H, Mean Corpuscular Hemoglobin Concent 33.3, Red Cell Distribution Width 13.7, Platelet Count 80L, Mean Platelet Volume 9.5, Neutrophils (%) (Auto) , Lymphocytes (%) ( Auto) , Monocytes (%) (Auto) , Eosinophils (%) (Auto) , Basophils (%) (Auto) , Differential Total Cells Counted 100, Neutrophils % (Manual) 71, Lymphocytes % ( Manual) 19L, Monocytes % (Manual) 9, Eosinophils % (Manual) 0, Basophils % ( Manual) 0, Band Neutrophils 1, Platelet Estimate DecreasedL, Platelet Morphology Normal, Red Blood Cell Morphology Normal, Sodium Level 138, Potassium Level 4.1, Chloride Level 101, Carbon Dioxide Level 28, Anion Gap 9, Blood Urea Nitrogen 20H, Creatinine 1.1#, Estimat Glomerular Filtration Rate > 60, Glucose Level 101, Uric Acid 3.5, Calcium Level 8.3L, Phosphorus Level 2.3L , Magnesium Level 1.8, Total Bilirubin 0.7, Gamma Glutamyl Transpeptidase 620H, Aspartate Amino Transf (AST/SGOT) 1510H, Alanine Aminotransferase (ALT/SGPT) 1197H, Alkaline Phosphatase 142H, Ammonia 54H, Pro-B-Type Natriuretic Peptide 494H, Total Protein 6.7, Albumin 2.9L, Globulin 3.8, Albumin/Globulin Ratio 0.8L , Triglycerides Level 74, Cholesterol Level 122, LDL Cholesterol 73, HDL Cholesterol 23L, Cholesterol/HDL Ratio 5.3H, Thyroid Stimulating Hormone (TSH) 0.238L 03/30/18 11:46: Arterial Blood pH 7.414, Arterial Blood Partial Pressure CO2 41.0, Arterial Blood Partial Pressure O2 113.5H, Arterial Blood HCO3 25.6, Arterial Blood Oxygen Saturation 97.7, Arterial Blood Base Excess 1.0, Fran Test Positive Height (Feet): 5 Height (Inches): 0.00 Weight (Pounds): 205 General Appearance: no apparent distress Cardiovascular: normal rate Respiratory/Chest: decreased breath sounds Abdomen: soft Objective no change Elliot Figueroa MD Mar 30, 2018 12:42
[2018-03-30] MEDS: Solu-MEDROL 125mg Inj IVP SCH ×2 (14:39→21:07)
--- NOTE | 2018-03-30 15:19 | GI Progress Note ---
Assessment/Plan Problems: (1) Shock liver ICD Codes: K72.00 - Acute and subacute hepatic failure without coma SNOMED: 511217937 (2) CHF (congestive heart failure) ICD Codes: I50.9 - Heart failure, unspecified SNOMED: 37047787 Qualifiers: Qualified Codes: I50.9 - Heart failure, unspecified (3) Transaminitis ICD Codes: R74.0 - Nonspecific elevation of levels of transaminase and lactic acid dehydrogenase [LDH] SNOMED: 884512872, [id number] Status: stable, progressing Status Narrative Discussed with Dr. Pate Assessment/Plan Negative abdominal ultrasound Most likely liver shock due to ischemia Hepatitis panel to rule out any viral cause >> negative utox r/o drug induced >> negative Will consider autoimmune markers if necessary okay to advance diet trend LFTs, downtrending fu pulmonary recs follow labs The patient was seen and examined at bedside and all new and available data was reviewed in the patients chart. I agree with the above findings, impression and plan. (Patient seen earlier today. Signature stamp does not reflect patient encounter time.). - Salvador Pate MD Subjective Gastrointestinal/Abdominal: Reports: no symptoms Objective Last 24 Hour Vital Signs Date Time Temp Pulse Resp B/P (MAP) Pulse Ox O2 Delivery O2 Flow Rate FiO2 03/30/18 14:51 82 20 95 Non-Rebreather 15.0 100 03/30/18 12:00 66 03/30/18 12:00 98.5 69 18 107/55 (72) 100 03/30/18 11:04 88 18 94 Non-Rebreather 15.0 100 03/30/18 10:54 79 22 92 Nasal Cannula 4.0 36 03/30/18 09:00 Nasal Cannula 2.0 03/30/18 08:00 98.2 70 20 122/66 (84) 93 03/30/18 08:00 68 03/30/18 07:44 84 20 94 Nasal Cannula 4.0 36 03/30/18 07:34 72 20 92 Nasal Cannula 4.0 36 03/30/18 07:33 92 Nasal Cannula 4.0 36 03/30/18 07:32 Nasal Cannula 4.0 36 03/30/18 04:00 98.5 75 20 128/67 (87) 94 03/30/18 04:00 74 03/30/18 03:36 86 20 94 Nasal Cannula 4.0 36 03/30/18 03:14 68 18 93 Nasal Cannula 4.0 36 03/30/18 00:00 98.5 72 20 117/63 (81) 95 03/30/18 00:00 66 03/29/18 23:33 71 20 96 Nasal Cannula 4.0 36 03/29/18 23:23 71 20 92 Nasal Cannula 4.0 36 03/29/18 21:09 Nasal Cannula 2.0 03/29/18 20:07 69 19 95 Nasal Cannula 4.0 36 03/29/18 20:00 98.2 61 20 111/58 (75) 95 03/29/18 20:00 60 03/29/18 19:49 68 19 93 Nasal Cannula 4.0 36 03/29/18 19:49 93 Nasal Cannula 4.0 36 03/29/18 19:49 Nasal Cannula 4.0 36 03/29/18 16:53 59 18 97 Nasal Cannula 4.0 36 03/29/18 16:43 61 16 93 Nasal Cannula 4.0 36 03/29/18 16:00 98.1 97 18 130/74 (92) 99 03/29/18 15:39 60 Intake and Output 03/29/18 03/30/18 19:00 07:00 Intake Total 75 ml 1100 ml Output Total 500 ml 600 ml Balance -425 ml 500 ml IV Total 75 ml 1100 ml Output Urine Total 500 ml 600 ml Laboratory Tests Test 03/29/18 15:24 03/30/18 05:45 03/30/18 11:46 Urine Random Sodium 39 mmol/L (20-110) White Blood Count 2.8 K/UL (4.8-10.8) L Red Blood Count 3.52 M/UL (4.20-5.40) L Hemoglobin 11.0 G/DL (12.0-16.0) L Hematocrit 33.0 % (37.0-47.0) L Mean Corpuscular Volume 94 FL (80-99) Mean Corpuscular Hemoglobin 31.2 PG (27.0-31.0) H Mean Corpuscular Hemoglobin Concent 33.3 G/DL (32.0-36.0) Red Cell Distribution Width 13.7 % (11.6-14.8) Platelet Count 80 K/UL (150-450) L Mean Platelet Volume 9.5 FL (6.5-10.1) Neutrophils (%) (Auto) % (45.0-75.0) Lymphocytes (%) (Auto) % (20.0-45.0) Monocytes (%) (Auto) % (1.0-10.0) Eosinophils (%) (Auto) % (0.0-3.0) Basophils (%) (Auto) % (0.0-2.0) Differential Total Cells Counted 100 Neutrophils % (Manual) 71 % (45-75) Lymphocytes % (Manual) 19 % (20-45) L Monocytes % (Manual) 9 % (1-10) Eosinophils % (Manual) 0 % (0-3) Basophils % (Manual) 0 % (0-2) Band Neutrophils 1 % (0-8) Platelet Estimate Decreased L Platelet Morphology Normal Red Blood Cell Morphology Normal Sodium Level 138 MMOL/L (136-145) Potassium Level 4.1 MMOL/L (3.5-5.1) Chloride Level 101 MMOL/L (98-107) Carbon Dioxide Level 28 MMOL/L (21-32) Anion Gap 9 mmol/L (5-15) Blood Urea Nitrogen 20 mg/dL (7-18) H Creatinine 1.1 MG/DL (0.55-1.30) # Estimat Glomerular Filtration Rate > 60 mL/min (>60) Glucose Level 101 MG/DL (74-106) Uric Acid 3.5 MG/DL (2.6-7.2) Calcium Level 8.3 MG/DL (8.5-10.1) L Phosphorus Level 2.3 MG/DL (2.5-4.9) L Magnesium Level 1.8 MG/DL (1.8-2.4) Total Bilirubin 0.7 MG/DL (0.2-1.0) Gamma Glutamyl Transpeptidase 620 U/L (5-85) H Aspartate Amino Transf (AST/SGOT) 1510 U/L (15-37) H Alanine Aminotransferase (ALT/SGPT) 1197 U/L (12-78) H Alkaline Phosphatase 142 U/L (46-116) H Ammonia 54 umol/L (11-32) H Pro-B-Type Natriuretic Peptide 494 pg/mL (0-125) H Total Protein 6.7 G/DL (6.4-8.2) Albumin 2.9 G/DL (3.4-5.0) L Globulin 3.8 g/dL Albumin/Globulin Ratio 0.8 (1.0-2.7) L Triglycerides Level 74 MG/DL (30-150) Cholesterol Level 122 MG/DL (< 200) LDL Cholesterol 73 mg/dL (<100) HDL Cholesterol 23 MG/DL (40-60) L Cholesterol/HDL Ratio 5.3 (3.3-4.4) H Thyroid Stimulating Hormone (TSH) 0.238 uiU/mL (0.358-3.740) Arterial Blood pH 7.414 (7.350-7.450) Arterial Blood Partial Pressure CO2 41.0 mmHg (35.0-45.0) Arterial Blood Partial Pressure O2 113.5 mmHg (75.0-100.0) H Arterial Blood HCO3 25.6 mmol/L (22.0-26.0) Arterial Blood Oxygen Saturation 97.7 % (95-100) Arterial Blood Base Excess 1.0 (-2-2) Fran Test Positive Height (Feet): 5 Height (Inches): 0.00 Weight (Pounds): 205 General Appearance: WD/WN, no apparent distress, alert Cardiovascular: normal rate Respiratory/Chest: normal breath sounds, no respiratory distress Abdominal Exam: normal bowel sounds, non tender, soft Extremities: normal range of motion, non-tender Johnny Roth NP Mar 30, 2018 15:19
--- NOTE | 2018-03-30 15:27 | Cardiac Electrophysiology PN ---
Assessment/Plan Assessment/Plan 1. Exacerbation of congestive heart failure due to Diastolic dysfunction. BNP of more than 3000. EF 55%. Lasix, Coreg, Lisinopril and Aldactone were all DCed for low BP 80s 2. Status post [employer] defibrillator implantation in 03/2017 3. Cough and hemoptysis. Was on Eliquis at home that was DCed. On Oxygen 7 liter of NC 4. Elevated AST and ALT in the thousands. Hepatitis panel is pending, but could be secondary to hepatic congestion and secondary to congestive heart failure. Amiodarone DCed . Levels are down now. 5. Fever, recurrent. On iv Abx per ID and Pulmonary 6. Hypotension and renal failure Cr 2.5 All BP /CHF meds were DCed. Creatinine normalized DW RN Subjective Subjective In SR.All CHF meds were DCed for Low BP yesterday. Saturation is 88% Objective Last 24 Hour Vital Signs Date Time Temp Pulse Resp B/P (MAP) Pulse Ox O2 Delivery O2 Flow Rate FiO2 03/30/18 14:51 82 20 95 Non-Rebreather 15.0 100 03/30/18 12:00 66 03/30/18 12:00 98.5 69 18 107/55 (72) 100 03/30/18 11:04 88 18 94 Non-Rebreather 15.0 100 03/30/18 10:54 79 22 92 Nasal Cannula 4.0 36 03/30/18 09:00 Nasal Cannula 2.0 03/30/18 08:00 98.2 70 20 122/66 (84) 93 03/30/18 08:00 68 03/30/18 07:44 84 20 94 Nasal Cannula 4.0 36 03/30/18 07:34 72 20 92 Nasal Cannula 4.0 36 03/30/18 07:33 92 Nasal Cannula 4.0 36 03/30/18 07:32 Nasal Cannula 4.0 36 03/30/18 04:00 98.5 75 20 128/67 (87) 94 03/30/18 04:00 74 03/30/18 03:36 86 20 94 Nasal Cannula 4.0 36 03/30/18 03:14 68 18 93 Nasal Cannula 4.0 36 03/30/18 00:00 98.5 72 20 117/63 (81) 95 03/30/18 00:00 66 03/29/18 23:33 71 20 96 Nasal Cannula 4.0 36 03/29/18 23:23 71 20 92 Nasal Cannula 4.0 36 03/29/18 21:09 Nasal Cannula 2.0 03/29/18 20:07 69 19 95 Nasal Cannula 4.0 36 03/29/18 20:00 98.2 61 20 111/58 (75) 95 03/29/18 20:00 60 03/29/18 19:49 68 19 93 Nasal Cannula 4.0 36 03/29/18 19:49 93 Nasal Cannula 4.0 36 03/29/18 19:49 Nasal Cannula 4.0 36 03/29/18 16:53 59 18 97 Nasal Cannula 4.0 36 03/29/18 16:43 61 16 93 Nasal Cannula 4.0 36 03/29/18 16:00 98.1 97 18 130/74 (92) 99 03/29/18 15:39 60 Intake and Output 03/29/18 03/30/18 19:00 07:00 Intake Total 75 ml 1100 ml Output Total 500 ml 600 ml Balance -425 ml 500 ml IV Total 75 ml 1100 ml Output Urine Total 500 ml 600 ml Laboratory Tests Test 03/30/18 05:45 03/30/18 11:46 White Blood Count 2.8 K/UL (4.8-10.8) L Red Blood Count 3.52 M/UL (4.20-5.40) L Hemoglobin 11.0 G/DL (12.0-16.0) L Hematocrit 33.0 % (37.0-47.0) L Mean Corpuscular Volume 94 FL (80-99) Mean Corpuscular Hemoglobin 31.2 PG (27.0-31.0) H Mean Corpuscular Hemoglobin Concent 33.3 G/DL (32.0-36.0) Red Cell Distribution Width 13.7 % (11.6-14.8) Platelet Count 80 K/UL (150-450) L Mean Platelet Volume 9.5 FL (6.5-10.1) Neutrophils (%) (Auto) % (45.0-75.0) Lymphocytes (%) (Auto) % (20.0-45.0) Monocytes (%) (Auto) % (1.0-10.0) Eosinophils (%) (Auto) % (0.0-3.0) Basophils (%) (Auto) % (0.0-2.0) Differential Total Cells Counted 100 Neutrophils % (Manual) 71 % (45-75) Lymphocytes % (Manual) 19 % (20-45) L Monocytes % (Manual) 9 % (1-10) Eosinophils % (Manual) 0 % (0-3) Basophils % (Manual) 0 % (0-2) Band Neutrophils 1 % (0-8) Platelet Estimate Decreased L Platelet Morphology Normal Red Blood Cell Morphology Normal Sodium Level 138 MMOL/L (136-145) Potassium Level 4.1 MMOL/L (3.5-5.1) Chloride Level 101 MMOL/L (98-107) Carbon Dioxide Level 28 MMOL/L (21-32) Anion Gap 9 mmol/L (5-15) Blood Urea Nitrogen 20 mg/dL (7-18) H Creatinine 1.1 MG/DL (0.55-1.30) # Estimat Glomerular Filtration Rate > 60 mL/min (>60) Glucose Level 101 MG/DL (74-106) Uric Acid 3.5 MG/DL (2.6-7.2) Calcium Level 8.3 MG/DL (8.5-10.1) L Phosphorus Level 2.3 MG/DL (2.5-4.9) L Magnesium Level 1.8 MG/DL (1.8-2.4) Total Bilirubin 0.7 MG/DL (0.2-1.0) Gamma Glutamyl Transpeptidase 620 U/L (5-85) H Aspartate Amino Transf (AST/SGOT) 1510 U/L (15-37) H Alanine Aminotransferase (ALT/SGPT) 1197 U/L (12-78) H Alkaline Phosphatase 142 U/L (46-116) H Ammonia 54 umol/L (11-32) H Pro-B-Type Natriuretic Peptide 494 pg/mL (0-125) H Total Protein 6.7 G/DL (6.4-8.2) Albumin 2.9 G/DL (3.4-5.0) L Globulin 3.8 g/dL Albumin/Globulin Ratio 0.8 (1.0-2.7) L Triglycerides Level 74 MG/DL (30-150) Cholesterol Level 122 MG/DL (< 200) LDL Cholesterol 73 mg/dL (<100) HDL Cholesterol 23 MG/DL (40-60) L Cholesterol/HDL Ratio 5.3 (3.3-4.4) H Thyroid Stimulating Hormone (TSH) 0.238 uiU/mL (0.358-3.740) Arterial Blood pH 7.414 (7.350-7.450) Arterial Blood Partial Pressure CO2 41.0 mmHg (35.0-45.0) Arterial Blood Partial Pressure O2 113.5 mmHg (75.0-100.0) H Arterial Blood HCO3 25.6 mmol/L (22.0-26.0) Arterial Blood Oxygen Saturation 97.7 % (95-100) Arterial Blood Base Excess 1.0 (-2-2) Fran Test Positive Microbiology Date/Time Source Procedure Growth Status 03/28/18 12:50 Blood Blood Culture - Preliminary NO GROWTH AFTER 24 HOURS Resulted 03/28/18 12:40 Blood Blood Culture - Preliminary NO GROWTH AFTER 24 HOURS Resulted 03/27/18 15:48 Blood Blood Culture - Preliminary NO GROWTH AFTER 48 HOURS Resulted 03/27/18 15:40 Blood Blood Culture - Preliminary NO GROWTH AFTER 48 HOURS Resulted 03/28/18 17:00 Nasal Nares Influenza Types A,B Antigen (ANGELIKA) - Final Complete 03/28/18 15:25 Sputum Expectorated Gram Stain - Final Resulted 03/28/18 15:25 Sputum Expectorated Sputum Culture - Preliminary Resulted Objective HEAD AND NECK: Mild JVD. LUNGS: Decreased breath sounds. CARDIOVASCULAR: Regular S1 and S2 with no gallop. ABDOMEN: Soft. EXTREMITIES: Trace pitting edema. ICD in left subclavian. Yusuf Byrnes MD Mar 30, 2018 15:27
--- NOTE | 2018-03-30 15:34 | NUR ---
NURSE NOTES: Patient's O2 sat 88. Changed her to Venturi mask 55%, 14L, saturating 91-92-93. Will continue to monitor. RT at bedside.
--- NOTE | 2018-03-30 15:47 | Pulmonology Progress Note ---
Assessment/Plan Assessment/Plan Pulmonary Progress Note HPI: The patient is a 57-year-old female with a previous smoking history with a history of chronic obstructive pulmonary disease, congestive heart failure, automatic implanted cardioverter defibrillator, diabetes, and prior stroke, who presented with cough, productive phlegm, wheezing and shortness of breath. She states that she has been coughing for several days, productive of mucoid phlegm with blood tinging. She was admitted for decompensated heart failure and hepatopathy. The patient also has obesity, but denies a history of DEMETRIA. Her BMI is 40. Patient noted to be leukopenic, has evidence of SERG, marked transaminitis with levels of AST greater than 5000. Chest x-ray shows a right basilar opacity, likely infiltrate. CT chest bilateral infiltrates (RML and LL's), subtle reticulonodular changes. Abdominal ultrasound was unremarkable except that she is status post cholecystectomy and duplex showed an ejection fraction of 55 to 60 percent with a PA systolic of 39. PAST MEDICAL HISTORY: 1. Congestive heart failure. 2. Automatic implanted cardioverter defibrillator. 3. Chronic obstructive pulmonary disease. 4. CVA. 5. Hypertension. 6. Hyperlipidemia. 7. Diabetes. PAST SURGICAL HISTORY: 1. Cholecystectomy. 2. Automatic implanted cardioverter defibrillator. MEDICATIONS: Prior to admission medications reviewed. Current medications reviewed. ALLERGIES: Codeine. SOCIAL HISTORY: Former smoker, none current. Denies drug or alcohol use. FAMILY HISTORY: Noncontributory. REVIEW OF SYSTEMS: Negative other than the history of present illness. PHYSICAL EXAMINATION: VITAL SIGNS NOTED GENERAL: She is an overweight female, in no acute distress. HEENT: Normocephalic and atraumatic. Oropharynx is clear. Moist mucosa membrane. NECK: Supple without lymphadenopathy or jugular venous distention. CHEST: Scattered coarse breath sounds. Faint end-expiratory wheezing. HEART: Regular rate and rhythm. ABDOMEN: Soft, nontender, and nondistended. EXTREMITIES: No cyanosis, clubbing or edema. ANCILLARY DATA: White count 2.3, hemoglobin 12.3, and platelet count 91,000. INR 1.3. Sodium 138, potassium 3.6, chloride 101, bicarbonate 28, BUN 22, creatinine 1.5, glucose 117, and calcium 8.6. Total bilirubin 1.4, direct bilirubin 1.0. GGT 603. AST 5434, ALT 2850, and alkaline phosphatase 163. Troponin negative. Total protein 7.3. Albumin 3.1. Globulin 4.3. IMAGING: Chest x-ray with right basilar infiltrate. Abdominal ultrasound unremarkable. CT chest bilateral infiltrates (RML and LL's), subtle reticulonodular changes. Echocardiogram, LVEF 55 to 60 percent. Borderline left ventricular hypertrophy. No pericardial effusions. Mild enlargement. IVC was normal. PA systolic pressure 39. ASSESSMENT: The patient is a 57-year-old female with a history of obesity, likely obesity hypoventilation, former smoker, chronic obstructive pulmonary disease, congestive heart failure with diastolic dysfunction, likely ischemic cardiomyopathy, automatic implanted cardioverter defibrillator, diabetes, hypertension, hyperlipidemia, prior CVA, presenting with respiratory illness with community-acquired pneumonia and hemoptysis with a possible exacerbation of underlying chronic obstructive pulmonary disease. PROBLEM LIST: 1. Community-acquired pneumonia. 2. Hemoptysis likely secondary to #1 above. 3. COPD without evidence of exacerbation. 4. Congestive heart failure without evidence of decompensated heart failure. 5. Atrial fibrillation/sick sinus syndrome, status post automatic implanted cardioverter defibrillator. 6. Acute kidney injury. 7. Diabetes. 8. Hypertension. 9. Hyperlipidemia. 10. Prior CVA. TREATMENT PLAN: 1. Optimize pulmonary hygiene/mobilize as tolerated. 2. P.r.n. O2 to keep saturations greater than 90%. 3. Anticoagulation has been held. 4. Monitor for further hemoptysis. 5. CT scan of the chest is pending. 6. Around the clock and p.r.n. DuoNebs. 7. Rocephin, azithromycin, and Tamiflu per ID. 8. Follow up cultures and serologies. 9. Monitor volumes and renal function, would be cautious with over-diuresis. 10. DVT prophylaxis, SCDs. 11. Check a baseline ABG. 12. The patient should have outpatient PFTs and sleep studies. 13. The patient is a Full Code. Subjective ROS Limited/Unobtainable: No Allergies: Coded Allergies: CODEINE (Verified Allergy, Unknown, Itching, 03/26/18) Objective Last 24 Hour Vital Signs Date Time Temp Pulse Resp B/P (MAP) Pulse Ox O2 Delivery O2 Flow Rate FiO2 03/30/18 14:51 82 20 95 Non-Rebreather 15.0 100 03/30/18 12:00 66 03/30/18 12:00 98.5 69 18 107/55 (72) 100 03/30/18 11:04 88 18 94 Non-Rebreather 15.0 100 03/30/18 10:54 79 22 92 Nasal Cannula 4.0 36 03/30/18 09:00 Nasal Cannula 2.0 03/30/18 08:00 98.2 70 20 122/66 (84) 93 03/30/18 08:00 68 03/30/18 07:44 84 20 94 Nasal Cannula 4.0 36 03/30/18 07:34 72 20 92 Nasal Cannula 4.0 36 03/30/18 07:33 92 Nasal Cannula 4.0 36 03/30/18 07:32 Nasal Cannula 4.0 36 03/30/18 04:00 98.5 75 20 128/67 (87) 94 03/30/18 04:00 74 03/30/18 03:36 86 20 94 Nasal Cannula 4.0 36 03/30/18 03:14 68 18 93 Nasal Cannula 4.0 36 03/30/18 00:00 98.5 72 20 117/63 (81) 95 03/30/18 00:00 66 03/29/18 23:33 71 20 96 Nasal Cannula 4.0 36 03/29/18 23:23 71 20 92 Nasal Cannula 4.0 36 03/29/18 21:09 Nasal Cannula 2.0 03/29/18 20:07 69 19 95 Nasal Cannula 4.0 36 03/29/18 20:00 98.2 61 20 111/58 (75) 95 03/29/18 20:00 60 03/29/18 19:49 68 19 93 Nasal Cannula 4.0 36 03/29/18 19:49 93 Nasal Cannula 4.0 36 03/29/18 19:49 Nasal Cannula 4.0 36 03/29/18 16:53 59 18 97 Nasal Cannula 4.0 36 03/29/18 16:43 61 16 93 Nasal Cannula 4.0 36 03/29/18 16:00 98.1 97 18 130/74 (92) 99 Intake and Output 03/29/18 03/30/18 19:00 07:00 Intake Total 75 ml 1100 ml Output Total 500 ml 600 ml Balance -425 ml 500 ml IV Total 75 ml 1100 ml Output Urine Total 500 ml 600 ml Microbiology Date/Time Source Procedure Growth Status 03/28/18 12:50 Blood Blood Culture - Preliminary NO GROWTH AFTER 24 HOURS Resulted 03/28/18 12:40 Blood Blood Culture - Preliminary NO GROWTH AFTER 24 HOURS Resulted 03/27/18 15:48 Blood Blood Culture - Preliminary NO GROWTH AFTER 48 HOURS Resulted 03/28/18 17:00 Nasal Nares Influenza Types A,B Antigen (ANGELIKA) - Final Complete 03/28/18 15:25 Sputum Expectorated Gram Stain - Final Resulted 03/28/18 15:25 Sputum Expectorated Sputum Culture - Preliminary Resulted Laboratory Tests 03/30/18 05:45: White Blood Count 2.8L, Red Blood Count 3.52L, Hemoglobin 11.0L, Hematocrit 33.0L, Mean Corpuscular Volume 94, Mean Corpuscular Hemoglobin 31.2H, Mean Corpuscular Hemoglobin Concent 33.3, Red Cell Distribution Width 13.7, Platelet Count 80L, Mean Platelet Volume 9.5, Neutrophils (%) (Auto) , Lymphocytes (%) ( Auto) , Monocytes (%) (Auto) , Eosinophils (%) (Auto) , Basophils (%) (Auto) , Differential Total Cells Counted 100, Neutrophils % (Manual) 71, Lymphocytes % ( Manual) 19L, Monocytes % (Manual) 9, Eosinophils % (Manual) 0, Basophils % ( Manual) 0, Band Neutrophils 1, Platelet Estimate DecreasedL, Platelet Morphology Normal, Red Blood Cell Morphology Normal, Sodium Level 138, Potassium Level 4.1, Chloride Level 101, Carbon Dioxide Level 28, Anion Gap 9, Blood Urea Nitrogen 20H, Creatinine 1.1#, Estimat Glomerular Filtration Rate > 60, Glucose Level 101, Uric Acid 3.5, Calcium Level 8.3L, Phosphorus Level 2.3L , Magnesium Level 1.8, Total Bilirubin 0.7, Gamma Glutamyl Transpeptidase 620H, Aspartate Amino Transf (AST/SGOT) 1510H, Alanine Aminotransferase (ALT/SGPT) 1197H, Alkaline Phosphatase 142H, Ammonia 54H, Pro-B-Type Natriuretic Peptide 494H, Total Protein 6.7, Albumin 2.9L, Globulin 3.8, Albumin/Globulin Ratio 0.8L , Triglycerides Level 74, Cholesterol Level 122, LDL Cholesterol 73, HDL Cholesterol 23L, Cholesterol/HDL Ratio 5.3H, Thyroid Stimulating Hormone (TSH) 0.238L 03/30/18 11:46: Arterial Blood pH 7.414, Arterial Blood Partial Pressure CO2 41.0, Arterial Blood Partial Pressure O2 113.5H, Arterial Blood HCO3 25.6, Arterial Blood Oxygen Saturation 97.7, Arterial Blood Base Excess 1.0, Fran Test Positive Current Medications Medications (Trade) Dose Ordered Sig/Arvind Route PRN Reason Start Time Stop Time Status Last Admin Dose Admin Albuterol/ Ipratropium (Albuterol/ Ipratropium) 3 ml Q4H PRN HHN Shortness of Breath 03/26/18 17:00 03/31/18 16:59 03/27/18 12:00 Albuterol/ Ipratropium (Albuterol/ Ipratropium) 3 ml Q4HRT HHN 03/27/18 15:00 04/01/18 14:59 03/30/18 14:51 Azithromycin 250 mg/Dextrose 250 ml @ 250 mls/hr Q24HRS IV 03/29/18 15:00 04/05/18 14:59 03/30/18 14:41 Ceftriaxone Sodium 1 gm/ Dextrose 50 ml @ 100 mls/hr Q24H IVPB 03/28/18 16:00 04/04/18 15:59 03/29/18 18:13 Cetylpyridinium Chloride (Cepacol) 1 lozg Q2H PRN REBECCA for sore throat 03/29/18 10:45 04/28/18 10:44 03/30/18 11:56 Dextrose (Dextrose 50%) 25 ml Q30M PRN IV Hypoglycemia 03/26/18 17:00 04/25/18 16:59 Dextrose (Dextrose 50%) 50 ml Q30M PRN IV Hypoglycemia 03/26/18 17:00 04/25/18 16:59 Diphenhydramine HCl (Benadryl) 25 mg Q6H PRN ORAL Itching 03/27/18 00:30 04/26/18 00:29 Insulin Aspart (NovoLOG) BEFORE MEALS AND HS SUBQ 03/26/18 21:00 04/25/18 20:59 03/30/18 06:15 Lorazepam (Ativan) 1 mg Q6H PRN ORAL For Anxiety 03/28/18 11:45 04/04/18 11:44 03/30/18 03:13 Methylprednisolone Sodium Succinate (Solu-MEDROL) 60 mg EVERY 8 HOURS IVP 03/30/18 14:00 04/29/18 13:59 03/30/18 14:39 Metronidazole 100 ml @ 100 mls/hr Q8H IVPB 03/29/18 18:00 04/05/18 17:59 03/30/18 09:16 Oseltamivir Phosphate (Tamiflu) 30 mg Q12HR ORAL 03/30/18 09:00 04/03/18 08:59 03/30/18 09:21 Tramadol HCl (Ultram) 50 mg Q12H PRN ORAL Pain 03/28/18 09:00 04/04/18 08:59 03/30/18 11:14 Casa Silvestre MD Mar 30, 2018 15:47
[2018-03-30 16:00] VITALS: BP 119/64
[2018-03-30] MEDS: cefTRIAXone 1 GM in D5W 50 ML IVPB SCH (16:16)
--- NOTE | 2018-03-30 19:55 | NUR ---
NURSE NOTES: Received report from Stan Soliz RN. Patient is awake in bed, A/O x4. Sinus rhythm on cardiac cath technician. No s/s of acute distress noted. Currently on 4L via nasal cannula and saturating well. Huizar in place and draining well to gravity. Right hand 22g IV saline lock, intact and patent. Bed locked in lowest position with side rails up x2. Call light left within reach. Will continue to monitor.
--- NOTE | 2018-03-30 19:55 | NUR ---
HAND-OFF: Report given to FRIDA Arellano. Patient in stable condition. In 4L NC saturating 92. No complains of pain or SOB.
[2018-03-30 20:00] VITALS: BP 136/73
[2018-03-31] VITALS: BP 134/76
[2018-03-31] MEDS: traMADol 50mg tab ORAL PRN (01:43)
[2018-03-31] MEDS: Albuterol/Ipratropium 3ml neb HHN SCH ×6 (02:37→22:32)
[2018-03-31 04:00] VITALS: BP 123/74
[2018-03-31] MEDS: Solu-MEDROL 125mg Inj IVP SCH (06:04)
[2018-03-31] MEDS: NovoLOG Insulin Flexpen SUBQ SCH ×4 (06:08→21:00)
[2018-03-31 06:48] LABS: HEMATOCRIT 36.2 % (37.0-47.0); MEAN CORPUSCULAR VOLUME 93 FL (80-99); PLATELET COUNT 100 K/UL (150-450); RED BLOOD COUNT 3.87 M/UL (4.20-5.40); RED CELL DISTRIBUTION WIDTH 14.1 % (11.6-14.8); WHITE BLOOD COUNT 3.4 K/UL (4.8-10.8)
[2018-03-31 07:01] LABS: ANION GAP 10 mmol/L (5-15); BLOOD UREA NITROGEN 11 mg/dL (7-18); CALCIUM 9.2 MG/DL (8.5-10.1); CARBON DIOXIDE 26 MMOL/L (21-32); CHLORIDE 102 MMOL/L (98-107); CREATININE 0.8 MG/DL (0.55-1.30); POTASSIUM 3.6 MMOL/L (3.5-5.1); SODIUM 138 MMOL/L (136-145)
--- NOTE | 2018-03-31 07:40 | NUR ---
HAND-OFF: Report given to Edilberto Youngblood RN.
--- NOTE | 2018-03-31 07:45 | NUR ---
NURSE NOTES: Report received from Delmy Lane RN. Pt resting in bed awke alert eating breakfast,noted no resp distress denies any c/o chest pain SR on the monitor,skin warm and dry,IV site to RH intact ,SR up x2 HOB elevated,bed lock in lowest position will continue with plans of care.
[2018-03-31 08:00] VITALS: BP 121/61
--- NOTE | 2018-03-31 10:19 | GI Progress Note ---
Assessment/Plan Problems: (1) Shock liver ICD Codes: K72.00 - Acute and subacute hepatic failure without coma SNOMED: 508196621 (2) CHF (congestive heart failure) ICD Codes: I50.9 - Heart failure, unspecified SNOMED: 82579011 Qualifiers: Qualified Codes: I50.9 - Heart failure, unspecified (3) Transaminitis ICD Codes: R74.0 - Nonspecific elevation of levels of transaminase and lactic acid dehydrogenase [LDH] SNOMED: 181189243, 446113933 Status: progressing Status Narrative Discussed with Dr. Pate Assessment/Plan Negative abdominal ultrasound Most likely liver shock due to ischemia Hepatitis panel to rule out any viral cause >> negative utox r/o drug induced >> negative Will consider autoimmune markers if necessary okay to advance diet trend LFTs, downtrending fu pulmonary recs follow labs The patient was seen and examined at bedside and all new and available data was reviewed in the patients chart. I agree with the above findings, impression and plan. (Patient seen earlier today. Signature stamp does not reflect patient encounter time.). - Salvador Pate MD Subjective Subjective Still has complaint of shortness of breath Overall feels better Denies any abdominal pain, denies any nausea or vomiting Objective Last 24 Hour Vital Signs Date Time Temp Pulse Resp B/P (MAP) Pulse Ox O2 Delivery O2 Flow Rate FiO2 03/31/18 07:18 92 Nasal Cannula 4.0 36 03/31/18 07:18 Nasal Cannula 4.0 36 03/31/18 07:18 Nasal Cannula 4.0 36 03/31/18 07:18 Nasal Cannula 4.0 36 03/31/18 04:00 97.7 66 20 123/74 (90) 95 03/31/18 03:23 66 03/31/18 02:51 61 20 93 Nasal Cannula 4.0 36 03/31/18 02:35 61 20 91 Nasal Cannula 4.0 36 03/31/18 00:08 81 20 93 Nasal Cannula 4.0 36 03/31/18 00:00 97.7 62 20 134/76 (95) 95 03/30/18 23:56 62 20 92 Nasal Cannula 4.0 36 03/30/18 23:20 63 03/30/18 21:00 Nasal Cannula 4.0 03/30/18 20:35 80 20 94 Nasal Cannula 4.0 36 03/30/18 20:23 Nasal Cannula 4.0 36 03/30/18 20:23 92 Nasal Cannula 4.0 36 03/30/18 20:23 73 20 92 Nasal Cannula 4.0 36 03/30/18 20:00 97.3 67 20 136/73 (94) 92 03/30/18 20:00 61 03/30/18 16:00 70 03/30/18 16:00 98.1 69 18 119/64 (82) 92 03/30/18 15:01 86 18 92 Venturi Mask 14.0 55 03/30/18 14:51 82 20 95 Non-Rebreather 15.0 100 03/30/18 12:00 66 03/30/18 12:00 98.5 69 18 107/55 (72) 100 03/30/18 11:04 88 18 94 Non-Rebreather 15.0 100 03/30/18 10:54 79 22 92 Nasal Cannula 4.0 36 Intake and Output 03/30/18 03/31/18 18:59 06:59 Intake Total 435 ml 260 ml Output Total 600 ml 375 ml Balance -165 ml -115 ml Intake Oral 360 ml 160 ml IV Total 75 ml 100 ml Output Urine Total 600 ml 375 ml Laboratory Tests Test 03/30/18 11:46 03/31/18 06:00 Arterial Blood pH 7.414 (7.350-7.450) Arterial Blood Partial Pressure CO2 41.0 mmHg (35.0-45.0) Arterial Blood Partial Pressure O2 113.5 mmHg (75.0-100.0) H Arterial Blood HCO3 25.6 mmol/L (22.0-26.0) Arterial Blood Oxygen Saturation 97.7 % (95-100) Arterial Blood Base Excess 1.0 (-2-2) Fran Test Positive White Blood Count 3.4 K/UL (4.8-10.8) L Red Blood Count 3.87 M/UL (4.20-5.40) L Hemoglobin 12.0 G/DL (12.0-16.0) Hematocrit 36.2 % (37.0-47.0) L Mean Corpuscular Volume 93 FL (80-99) Mean Corpuscular Hemoglobin 30.8 PG (27.0-31.0) Mean Corpuscular Hemoglobin Concent 33.0 G/DL (32.0-36.0) Red Cell Distribution Width 14.1 % (11.6-14.8) Platelet Count 100 K/UL (150-450) L Mean Platelet Volume 9.7 FL (6.5-10.1) Neutrophils (%) (Auto) % (45.0-75.0) Lymphocytes (%) (Auto) % (20.0-45.0) Monocytes (%) (Auto) % (1.0-10.0) Eosinophils (%) (Auto) % (0.0-3.0) Basophils (%) (Auto) % (0.0-2.0) Differential Total Cells Counted 100 Neutrophils % (Manual) 81 % (45-75) H Lymphocytes % (Manual) 14 % (20-45) L Monocytes % (Manual) 3 % (1-10) Eosinophils % (Manual) 2 % (0-3) Basophils % (Manual) 0 % (0-2) Band Neutrophils 0 % (0-8) Platelet Estimate Decreased L Platelet Morphology Normal Sodium Level 138 MMOL/L (136-145) Potassium Level 3.6 MMOL/L (3.5-5.1) Chloride Level 102 MMOL/L (98-107) Carbon Dioxide Level 26 MMOL/L (21-32) Anion Gap 10 mmol/L (5-15) Blood Urea Nitrogen 11 mg/dL (7-18) Creatinine 0.8 MG/DL (0.55-1.30) Estimat Glomerular Filtration Rate > 60 mL/min (>60) Glucose Level 177 MG/DL (74-106) H Calcium Level 9.2 MG/DL (8.5-10.1) Height (Feet): 5 Height (Inches): 0.00 Weight (Pounds): 205 General Appearance: WD/WN, no apparent distress, alert Cardiovascular: normal rate Respiratory/Chest: normal breath sounds, no respiratory distress Abdominal Exam: normal bowel sounds, non tender, soft Extremities: normal range of motion, non-tender Johnny Roth NP Mar 31, 2018 10:19
--- NOTE | 2018-03-31 11:11 | Consultation ---
History of Present Illness General Chief Complaint: Upper Respiratory Illness Referring physician: CORINNA DIEGO Reason for Consultation: Transaminitis Present Illness Allergies: Coded Allergies: CODEINE (Verified Allergy, Unknown, Itching, 03/26/18) Medication History Scheduled Amiodarone Hcl* (Amiodarone Hcl*), 200 MG ORAL EVERY 12 HOURS, (Reported) Amlodipine Besylate (Norvasc), 2 MG ORAL DAILY, (Reported) Atorvastatin Calcium* (Atorvastatin Calcium*), 40 MG ORAL BEDTIME, (Reported) Furosemide* (Lasix*), 20 MG ORAL DAILY, (Reported) Metoprolol Tartrate* (Metoprolol Tartrate*), 25 MG ORAL EVERY 12 HOURS, ( Reported) Pregabalin* (Lyrica*), 50 MG ORAL THREE TIMES A DAY, (Reported) Miscellaneous Medications Apixaban (Eliquis), 5 MG PO, (Reported) Unable to Obtain Medications (Unable To Obtain Meds), (Reported) Patient History Healthcare decision maker Resuscitation status Full Code Advanced Directive on File Review of Systems Psychiatric: Reports: anxiety, depressed feelings, emotional problems Physical Exam General Appearance: no apparent distress, alert Neurologic: oriented x 3, responsive, depressed affect Last 24 Hour Vital Signs Date Time Temp Pulse Resp B/P (MAP) Pulse Ox O2 Delivery O2 Flow Rate FiO2 03/31/18 07:18 92 Nasal Cannula 4.0 36 03/31/18 07:18 Nasal Cannula 4.0 36 03/31/18 07:18 Nasal Cannula 4.0 36 03/31/18 07:18 Nasal Cannula 4.0 36 03/31/18 04:00 97.7 66 20 123/74 (90) 95 03/31/18 03:23 66 03/31/18 02:51 61 20 93 Nasal Cannula 4.0 36 03/31/18 02:35 61 20 91 Nasal Cannula 4.0 36 03/31/18 00:08 81 20 93 Nasal Cannula 4.0 36 03/31/18 00:00 97.7 62 20 134/76 (95) 95 03/30/18 23:56 62 20 92 Nasal Cannula 4.0 36 03/30/18 23:20 63 03/30/18 21:00 Nasal Cannula 4.0 03/30/18 20:35 80 20 94 Nasal Cannula 4.0 36 03/30/18 20:23 Nasal Cannula 4.0 36 03/30/18 20:23 92 Nasal Cannula 4.0 36 03/30/18 20:23 73 20 92 Nasal Cannula 4.0 36 03/30/18 20:00 97.3 67 20 136/73 (94) 92 03/30/18 20:00 61 03/30/18 16:00 70 03/30/18 16:00 98.1 69 18 119/64 (82) 92 03/30/18 15:01 86 18 92 Venturi Mask 14.0 55 03/30/18 14:51 82 20 95 Non-Rebreather 15.0 100 03/30/18 12:00 66 03/30/18 12:00 98.5 69 18 107/55 (72) 100 Intake and Output 03/30/18 03/31/18 18:59 06:59 Intake Total 435 ml 260 ml Output Total 600 ml 375 ml Balance -165 ml -115 ml Intake Oral 360 ml 160 ml IV Total 75 ml 100 ml Output Urine Total 600 ml 375 ml Laboratory Tests Test 03/30/18 11:46 03/31/18 06:00 Arterial Blood pH 7.414 (7.350-7.450) Arterial Blood Partial Pressure CO2 41.0 mmHg (35.0-45.0) Arterial Blood Partial Pressure O2 113.5 mmHg (75.0-100.0) H Arterial Blood HCO3 25.6 mmol/L (22.0-26.0) Arterial Blood Oxygen Saturation 97.7 % (95-100) Arterial Blood Base Excess 1.0 (-2-2) Fran Test Positive White Blood Count 3.4 K/UL (4.8-10.8) L Red Blood Count 3.87 M/UL (4.20-5.40) L Hemoglobin 12.0 G/DL (12.0-16.0) Hematocrit 36.2 % (37.0-47.0) L Mean Corpuscular Volume 93 FL (80-99) Mean Corpuscular Hemoglobin 30.8 PG (27.0-31.0) Mean Corpuscular Hemoglobin Concent 33.0 G/DL (32.0-36.0) Red Cell Distribution Width 14.1 % (11.6-14.8) Platelet Count 100 K/UL (150-450) L Mean Platelet Volume 9.7 FL (6.5-10.1) Neutrophils (%) (Auto) % (45.0-75.0) Lymphocytes (%) (Auto) % (20.0-45.0) Monocytes (%) (Auto) % (1.0-10.0) Eosinophils (%) (Auto) % (0.0-3.0) Basophils (%) (Auto) % (0.0-2.0) Differential Total Cells Counted 100 Neutrophils % (Manual) 81 % (45-75) H Lymphocytes % (Manual) 14 % (20-45) L Monocytes % (Manual) 3 % (1-10) Eosinophils % (Manual) 2 % (0-3) Basophils % (Manual) 0 % (0-2) Band Neutrophils 0 % (0-8) Platelet Estimate Decreased L Platelet Morphology Normal Sodium Level 138 MMOL/L (136-145) Potassium Level 3.6 MMOL/L (3.5-5.1) Chloride Level 102 MMOL/L (98-107) Carbon Dioxide Level 26 MMOL/L (21-32) Anion Gap 10 mmol/L (5-15) Blood Urea Nitrogen 11 mg/dL (7-18) Creatinine 0.8 MG/DL (0.55-1.30) Estimat Glomerular Filtration Rate > 60 mL/min (>60) Glucose Level 177 MG/DL (74-106) H Calcium Level 9.2 MG/DL (8.5-10.1) Height (Feet): 5 Height (Inches): 0.00 Weight (Pounds): 205 Medications Current Medications Medications (Trade) Dose Ordered Sig/Arvind Route PRN Reason Start Time Stop Time Status Last Admin Dose Admin Albuterol/ Ipratropium (Albuterol/ Ipratropium) 3 ml Q4H PRN HHN Shortness of Breath 03/26/18 17:00 03/31/18 16:59 03/27/18 12:00 Albuterol/ Ipratropium (Albuterol/ Ipratropium) 3 ml Q4HRT HHN 03/27/18 15:00 04/01/18 14:59 03/31/18 02:37 Azithromycin 250 mg/Dextrose 250 ml @ 250 mls/hr Q24HRS IV 03/29/18 15:00 04/05/18 14:59 03/30/18 14:41 Ceftriaxone Sodium 1 gm/ Dextrose 50 ml @ 100 mls/hr Q24H IVPB 03/28/18 16:00 04/04/18 15:59 03/30/18 16:16 Cetylpyridinium Chloride (Cepacol) 1 lozg Q2H PRN REBECCA for sore throat 03/29/18 10:45 04/28/18 10:44 03/31/18 10:13 Dextrose (Dextrose 50%) 25 ml Q30M PRN IV Hypoglycemia 03/26/18 17:00 04/25/18 16:59 Dextrose (Dextrose 50%) 50 ml Q30M PRN IV Hypoglycemia 03/26/18 17:00 04/25/18 16:59 Diphenhydramine HCl (Benadryl) 25 mg Q6H PRN ORAL Itching 03/27/18 00:30 04/26/18 00:29 Insulin Aspart (NovoLOG) BEFORE MEALS AND HS SUBQ 03/26/18 21:00 04/25/18 20:59 03/31/18 06:08 Lorazepam (Ativan) 1 mg Q6H PRN ORAL For Anxiety 03/28/18 11:45 04/04/18 11:44 03/30/18 03:13 Methylprednisolone Sodium Succinate (Solu-MEDROL) 60 mg EVERY 8 HOURS IVP 03/30/18 14:00 04/29/18 13:59 03/31/18 06:04 Metronidazole 100 ml @ 100 mls/hr Q12HR IVPB 03/31/18 21:00 04/07/18 20:59 Oseltamivir Phosphate (Tamiflu) 30 mg Q12HR ORAL 03/30/18 09:00 04/01/18 23:00 03/31/18 09:55 Tramadol HCl (Ultram) 50 mg Q12H PRN ORAL Pain 03/28/18 09:00 04/04/18 08:59 03/31/18 01:43 Assessment/Plan Problem List: (1) MDD (major depressive disorder), recurrent episode, moderate ICD Codes: F33.1 - Major depressive disorder, recurrent, moderate SNOMED: 48988399, 296092128 (2) Anxiety disorder ICD Codes: F41.9 - Anxiety disorder, unspecified SNOMED: 601591074 Assessment/Plan ativan prn lexapro 10mg po qam provided ro/Demetri Lucas MD Mar 31, 2018 11:11
[2018-03-31 11:52] VITALS: BP 124/67
--- NOTE | 2018-03-31 12:53 | General Progress Note ---
Assessment/Plan Assessment/Plan #Severe sepsis due to multifocal pneumonia, present on admission #CT chest shows Evidence of right middle lobe airspace disease also likely present within posterior basilar aspects of the lower lobes. -continue with IV antibiotics -all cultures negative to date -use cooling blanket for fever, avoid Tylenol and NSAIDS -Pulmonology and ID following #COPD, marked wheeze on exam yesterday, better today -continue Duoneb -continue Solu-Medrol -ABG results reviewed #SERG, creatinine up to 2.5, resolving -fluids stopped -hold all nephrotoxic meds -Nephrology following -check daily BMP #Acute on chronic systolic CHF, resolving #history of atrial fibrillation continue telemetry Cardiology following stop Lasix given SERG hold Coreg due to mild hypotension hold Aldactone due to SERG hold lisinopril due to SERG stop amiodarone due to abnormal LFS Eliquis held due to abnormal LFTs monitor I&O Daily weights 2 gram sodium diet #Mild hypokalemia -resolved #Abnormal LFTs #Suspected congestive hepatopathy vs ischemic hepatopathy -improved LFTs -RUQ US unremarkable -GI eval appreciated -Eliquis held per pharmacy recs -Tramadol dose reduced per pharmacy recs -Amiodarone held #Morbid Obesity #Reported history of DMII -ISS -Diabetic diet VTE PPx heparin SC Full Code Subjective Date patient seen: Mar 31, 2018 Time patient seen: 09:15 ROS Limited/Unobtainable: No Constitutional: Denies: chills, fever Cardiovascular: Denies: chest pain Respiratory: Denies: cough, shortness of breath Gastrointestinal/Abdominal: Denies: abdomen distended, abdominal pain Genitourinary: Denies: burning Allergies: Coded Allergies: CODEINE (Verified Allergy, Unknown, Itching, 03/26/18) Subjective Medicine followup for severe sepsis due to multifocal pneumonia, SERG, acute CHF. Feels much better today. Appetite improved. Objective Last 24 Hour Vital Signs Date Time Temp Pulse Resp B/P (MAP) Pulse Ox O2 Delivery O2 Flow Rate FiO2 03/31/18 12:00 59 03/31/18 11:52 98.6 61 18 124/67 (86) 96 03/31/18 11:05 Nasal Cannula 4.0 36 03/31/18 11:05 Nasal Cannula 4.0 36 03/31/18 09:00 Nasal Cannula 4.0 03/31/18 08:00 97.4 63 18 121/61 (81) 98 03/31/18 08:00 83 03/31/18 08:00 62 03/31/18 07:18 92 Nasal Cannula 4.0 36 03/31/18 07:18 Nasal Cannula 4.0 36 03/31/18 07:18 Nasal Cannula 4.0 36 03/31/18 07:18 Nasal Cannula 4.0 36 03/31/18 04:00 97.7 66 20 123/74 (90) 95 03/31/18 03:23 66 03/31/18 02:51 61 20 93 Nasal Cannula 4.0 36 03/31/18 02:35 61 20 91 Nasal Cannula 4.0 36 03/31/18 00:08 81 20 93 Nasal Cannula 4.0 36 03/31/18 00:00 97.7 62 20 134/76 (95) 95 03/30/18 23:56 62 20 92 Nasal Cannula 4.0 36 03/30/18 23:20 63 03/30/18 21:00 Nasal Cannula 4.0 03/30/18 20:35 80 20 94 Nasal Cannula 4.0 36 03/30/18 20:23 Nasal Cannula 4.0 36 03/30/18 20:23 92 Nasal Cannula 4.0 36 03/30/18 20:23 73 20 92 Nasal Cannula 4.0 36 03/30/18 20:00 97.3 67 20 136/73 (94) 92 03/30/18 20:00 61 03/30/18 16:00 70 03/30/18 16:00 98.1 69 18 119/64 (82) 92 03/30/18 15:01 86 18 92 Venturi Mask 14.0 55 03/30/18 14:51 82 20 95 Non-Rebreather 15.0 100 Intake and Output 03/30/18 03/31/18 18:59 06:59 Intake Total 435 ml 260 ml Output Total 600 ml 375 ml Balance -165 ml -115 ml Intake Oral 360 ml 160 ml IV Total 75 ml 100 ml Output Urine Total 600 ml 375 ml Laboratory Tests 03/31/18 06:00: White Blood Count 3.4L, Red Blood Count 3.87L, Hemoglobin 12.0, Hematocrit 36.2L , Mean Corpuscular Volume 93, Mean Corpuscular Hemoglobin 30.8, Mean Corpuscular Hemoglobin Concent 33.0, Red Cell Distribution Width 14.1, Platelet Count 100L, Mean Platelet Volume 9.7, Neutrophils (%) (Auto) , Lymphocytes (%) ( Auto) , Monocytes (%) (Auto) , Eosinophils (%) (Auto) , Basophils (%) (Auto) , Differential Total Cells Counted 100, Neutrophils % (Manual) 81H, Lymphocytes % (Manual) 14L, Monocytes % (Manual) 3, Eosinophils % (Manual) 2, Basophils % ( Manual) 0, Band Neutrophils 0, Platelet Estimate DecreasedL, Platelet Morphology Normal, Sodium Level 138, Potassium Level 3.6, Chloride Level 102, Carbon Dioxide Level 26, Anion Gap 10, Blood Urea Nitrogen 11, Creatinine 0.8, Estimat Glomerular Filtration Rate > 60, Glucose Level 177H, Calcium Level 9.2 Height (Feet): 5 Height (Inches): 0.00 Weight (Pounds): 205 General Appearance: no apparent distress, alert EENT: normal ENT inspection Neck: non-tender, normal alignment Cardiovascular: normal rate, regular rhythm Respiratory/Chest: lungs clear, normal breath sounds, no respiratory distress Abdomen: non tender, soft Declan Crespo MD Mar 31, 2018 12:52
--- NOTE | 2018-03-31 13:00 | NUR ---
NURSE NOTES: Pt stable no c/o presented,verbalized feeling better.
--- NOTE | 2018-03-31 13:08 | NUR ---
RD ASSESSMENT & RECOMMENDATIONS SEE CARE ACTIVITY FOR COMPLETE ASSESSMENT DAILY ESTIMATED NEEDS: Needs based on Obese, pulmonary 57kg 25-30 kcals/kg 1218-4577 total kcals 1-1.5 g protein/kg 57-86 g total protein 25-30 mL/kg 5684-0331 total fluid mLs NUTRITION DIAGNOSIS: Altered nutrition related lab values r/t clinical status as evidenced by elev LFTS, elev LD (3430), lwo WBC (3.4). 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
--- NOTE | 2018-03-31 13:39 | Pulmonology Progress Note ---
Assessment/Plan Problems: (1) Upper respiratory infection (2) PNA (pneumonia) (3) Transaminitis (4) Shock liver (5) CHF (congestive heart failure) (6) Elevated LFTs (7) Acute renal failure (8) Obesity (9) Pacemaker Assessment/Plan ASSESSMENT: The patient is a 57-year-old female with a history of obesity, likely obesity hypoventilation, former smoker, chronic obstructive pulmonary disease, congestive heart failure with diastolic dysfunction, likely ischemic cardiomyopathy, automatic implanted cardioverter defibrillator, diabetes, hypertension, hyperlipidemia, prior CVA, presenting with respiratory illness with community-acquired pneumonia and hemoptysis with a possible exacerbation of underlying chronic obstructive pulmonary disease. PROBLEM LIST: 1. Community-acquired pneumonia. 2. Hemoptysis likely secondary to #1 above - RESOLVED 3. COPD without evidence of exacerbation. 4. Congestive heart failure without evidence of decompensated heart failure. 5. Atrial fibrillation/sick sinus syndrome, status post automatic implanted cardioverter defibrillator. 6. Acute kidney injury - RESOLVED 7. Abnormal LFT's, likely shock liver - IMPROVED 7. Diabetes, HTN, HL, prior CVA TREATMENT PLAN: 1. Optimize pulmonary hygiene/mobilize as tolerated. 2. P.r.n. O2 to keep saturations greater than 90%. 3. Continue to hold A/C 4. Monitor for further hemoptysis. 5. Infiltrates need to be followed to resolution 6. RTC and PRN DuoNebs. 7. Abx per ID 8. Follow up cultures and serologies. 9. Monitor volumes and renal function 10. DVT prophylaxis, SCDs. 11. Monitor LFT's 12. The patient should have outpatient PFTs and sleep studies. 13. The patient is a Full Code. Subjective Allergies: Coded Allergies: CODEINE (Verified Allergy, Unknown, Itching, 03/26/18) Subjective AFVSS O2 needs stable on 4L + cough with productive phlegm, no hemoptysis, + SOB, no F/C LFT's better, SERG resolved Objective Last 24 Hour Vital Signs Date Time Temp Pulse Resp B/P (MAP) Pulse Ox O2 Delivery O2 Flow Rate FiO2 03/31/18 12:00 59 03/31/18 11:52 98.6 61 18 124/67 (86) 96 03/31/18 11:05 Nasal Cannula 4.0 36 03/31/18 11:05 Nasal Cannula 4.0 36 03/31/18 09:00 Nasal Cannula 4.0 03/31/18 08:00 97.4 63 18 121/61 (81) 98 03/31/18 08:00 83 03/31/18 08:00 62 03/31/18 07:18 92 Nasal Cannula 4.0 36 03/31/18 07:18 Nasal Cannula 4.0 36 03/31/18 07:18 Nasal Cannula 4.0 36 03/31/18 07:18 Nasal Cannula 4.0 36 03/31/18 04:00 97.7 66 20 123/74 (90) 95 03/31/18 03:23 66 03/31/18 02:51 61 20 93 Nasal Cannula 4.0 36 03/31/18 02:35 61 20 91 Nasal Cannula 4.0 36 03/31/18 00:08 81 20 93 Nasal Cannula 4.0 36 03/31/18 00:00 97.7 62 20 134/76 (95) 95 03/30/18 23:56 62 20 92 Nasal Cannula 4.0 36 03/30/18 23:20 63 03/30/18 21:00 Nasal Cannula 4.0 03/30/18 20:35 80 20 94 Nasal Cannula 4.0 36 03/30/18 20:23 Nasal Cannula 4.0 36 03/30/18 20:23 92 Nasal Cannula 4.0 36 03/30/18 20:23 73 20 92 Nasal Cannula 4.0 36 03/30/18 20:00 97.3 67 20 136/73 (94) 92 03/30/18 20:00 61 03/30/18 16:00 70 03/30/18 16:00 98.1 69 18 119/64 (82) 92 03/30/18 15:01 86 18 92 Venturi Mask 14.0 55 03/30/18 14:51 82 20 95 Non-Rebreather 15.0 100 Intake and Output 03/30/18 03/31/18 18:59 06:59 Intake Total 435 ml 260 ml Output Total 600 ml 375 ml Balance -165 ml -115 ml Intake Oral 360 ml 160 ml IV Total 75 ml 100 ml Output Urine Total 600 ml 375 ml General Appearance: WD/WN, no acute distress HEENT: normocephalic, atraumatic, anicteric, mucous membranes moist Respiratory/Chest: chest wall non-tender, rhonchi Cardiovascular: normal peripheral pulses, normal rate, regular rhythm Abdomen: normal bowel sounds, soft, non tender, no organomegaly, non distended , no mass Extremities: no cyanosis, no clubbing, no edema Microbiology Date/Time Source Procedure Growth Status 03/28/18 17:00 Nasal Nares Influenza Types A,B Antigen (ANGELIKA) - Final Complete 03/28/18 15:25 Sputum Expectorated Gram Stain - Final Complete 03/28/18 15:25 Sputum Expectorated Sputum Culture - Final NORMAL UPPER RESPIRATORY HERLINDA PRESENT Complete Laboratory Tests 03/31/18 06:00: White Blood Count 3.4L, Red Blood Count 3.87L, Hemoglobin 12.0, Hematocrit 36.2L , Mean Corpuscular Volume 93, Mean Corpuscular Hemoglobin 30.8, Mean Corpuscular Hemoglobin Concent 33.0, Red Cell Distribution Width 14.1, Platelet Count 100L, Mean Platelet Volume 9.7, Neutrophils (%) (Auto) , Lymphocytes (%) ( Auto) , Monocytes (%) (Auto) , Eosinophils (%) (Auto) , Basophils (%) (Auto) , Differential Total Cells Counted 100, Neutrophils % (Manual) 81H, Lymphocytes % (Manual) 14L, Monocytes % (Manual) 3, Eosinophils % (Manual) 2, Basophils % ( Manual) 0, Band Neutrophils 0, Platelet Estimate DecreasedL, Platelet Morphology Normal, Sodium Level 138, Potassium Level 3.6, Chloride Level 102, Carbon Dioxide Level 26, Anion Gap 10, Blood Urea Nitrogen 11, Creatinine 0.8, Estimat Glomerular Filtration Rate > 60, Glucose Level 177H, Calcium Level 9.2 Current Medications Medications (Trade) Dose Ordered Sig/Arvind Route PRN Reason Start Time Stop Time Status Last Admin Dose Admin Albuterol/ Ipratropium (Albuterol/ Ipratropium) 3 ml Q4H PRN N Shortness of Breath 03/26/18 17:00 03/31/18 16:59 03/27/18 12:00 Albuterol/ Ipratropium (Albuterol/ Ipratropium) 3 ml Q4HRT HHN 03/27/18 15:00 04/01/18 14:59 03/31/18 02:37 Azithromycin 250 mg/Dextrose 250 ml @ 250 mls/hr Q24HRS IV 03/29/18 15:00 04/05/18 14:59 03/30/18 14:41 Ceftriaxone Sodium 1 gm/ Dextrose 50 ml @ 100 mls/hr Q24H IVPB 03/28/18 16:00 04/04/18 15:59 03/30/18 16:16 Cetylpyridinium Chloride (Cepacol) 1 lozg Q2H PRN REBECCA for sore throat 03/29/18 10:45 04/28/18 10:44 03/31/18 10:13 Dextrose (Dextrose 50%) 25 ml Q30M PRN IV Hypoglycemia 03/26/18 17:00 04/25/18 16:59 Dextrose (Dextrose 50%) 50 ml Q30M PRN IV Hypoglycemia 03/26/18 17:00 04/25/18 16:59 Diphenhydramine HCl (Benadryl) 25 mg Q6H PRN ORAL Itching 03/27/18 00:30 04/26/18 00:29 Insulin Aspart (NovoLOG) BEFORE MEALS AND HS SUBQ 03/26/18 21:00 04/25/18 20:59 03/31/18 11:37 Lorazepam (Ativan) 1 mg Q6H PRN ORAL For Anxiety 03/28/18 11:45 04/04/18 11:44 03/30/18 03:13 Methylprednisolone Sodium Succinate (Solu-MEDROL) 60 mg EVERY 8 HOURS IVP 03/30/18 14:00 04/29/18 13:59 03/31/18 06:04 Metronidazole 100 ml @ 100 mls/hr Q12HR IVPB 03/31/18 21:00 04/07/18 20:59 Oseltamivir Phosphate (Tamiflu) 30 mg Q12HR ORAL 03/30/18 09:00 04/01/18 23:00 03/31/18 09:55 Tramadol HCl (Ultram) 50 mg Q12H PRN ORAL Pain 03/28/18 09:00 04/04/18 08:59 03/31/18 01:43 Tyler Bardales MD Mar 31, 2018 13:39
--- NOTE | 2018-03-31 14:01 | Cardiac Electrophysiology PN ---
Assessment/Plan Assessment/Plan 1. Exacerbation of CHF due to Diastolic dysfunction. BNP of more than 3000. EF 55%. Lasix, Coreg, Lisinopril and Aldactone were all DCed for low BP 80s 2. Status post [employer] defibrillator implantation in 03/2017 3. Cough and hemoptysis. Was on Eliquis at home that was DCed. On Oxygen 7 liter of NC 4. Elevated AST and ALT in the thousands. Hepatitis panel is pending, but could be secondary to hepatic congestion and secondary to congestive heart failure. Amiodarone DCed. Levels are down now. 5. Fever, recurrent. On iv Abx per ID and Pulmonary 6. Hypotension and renal failure Cr 2.5 All BP /CHF meds were DCed. Creatinine normalized to 0.8 DW RN Subjective Subjective In SR. Feeling better Objective Last 24 Hour Vital Signs Date Time Temp Pulse Resp B/P (MAP) Pulse Ox O2 Delivery O2 Flow Rate FiO2 03/31/18 12:00 59 03/31/18 11:52 98.6 61 18 124/67 (86) 96 03/31/18 11:05 Nasal Cannula 4.0 36 03/31/18 11:05 Nasal Cannula 4.0 36 03/31/18 09:00 Nasal Cannula 4.0 03/31/18 08:00 97.4 63 18 121/61 (81) 98 03/31/18 08:00 83 03/31/18 08:00 62 03/31/18 07:18 92 Nasal Cannula 4.0 36 03/31/18 07:18 Nasal Cannula 4.0 36 03/31/18 07:18 Nasal Cannula 4.0 36 03/31/18 07:18 Nasal Cannula 4.0 36 03/31/18 04:00 97.7 66 20 123/74 (90) 95 03/31/18 03:23 66 03/31/18 02:51 61 20 93 Nasal Cannula 4.0 36 03/31/18 02:35 61 20 91 Nasal Cannula 4.0 36 03/31/18 00:08 81 20 93 Nasal Cannula 4.0 36 03/31/18 00:00 97.7 62 20 134/76 (95) 95 03/30/18 23:56 62 20 92 Nasal Cannula 4.0 36 03/30/18 23:20 63 03/30/18 21:00 Nasal Cannula 4.0 03/30/18 20:35 80 20 94 Nasal Cannula 4.0 36 03/30/18 20:23 Nasal Cannula 4.0 36 03/30/18 20:23 92 Nasal Cannula 4.0 36 03/30/18 20:23 73 20 92 Nasal Cannula 4.0 36 03/30/18 20:00 97.3 67 20 136/73 (94) 92 03/30/18 20:00 61 03/30/18 16:00 70 03/30/18 16:00 98.1 69 18 119/64 (82) 92 03/30/18 15:01 86 18 92 Venturi Mask 14.0 55 03/30/18 14:51 82 20 95 Non-Rebreather 15.0 100 Intake and Output 03/30/18 03/31/18 18:59 06:59 Intake Total 435 ml 260 ml Output Total 600 ml 375 ml Balance -165 ml -115 ml Intake Oral 360 ml 160 ml IV Total 75 ml 100 ml Output Urine Total 600 ml 375 ml Laboratory Tests Test 03/31/18 06:00 White Blood Count 3.4 K/UL (4.8-10.8) L Red Blood Count 3.87 M/UL (4.20-5.40) L Hemoglobin 12.0 G/DL (12.0-16.0) Hematocrit 36.2 % (37.0-47.0) L Mean Corpuscular Volume 93 FL (80-99) Mean Corpuscular Hemoglobin 30.8 PG (27.0-31.0) Mean Corpuscular Hemoglobin Concent 33.0 G/DL (32.0-36.0) Red Cell Distribution Width 14.1 % (11.6-14.8) Platelet Count 100 K/UL (150-450) L Mean Platelet Volume 9.7 FL (6.5-10.1) Neutrophils (%) (Auto) % (45.0-75.0) Lymphocytes (%) (Auto) % (20.0-45.0) Monocytes (%) (Auto) % (1.0-10.0) Eosinophils (%) (Auto) % (0.0-3.0) Basophils (%) (Auto) % (0.0-2.0) Differential Total Cells Counted 100 Neutrophils % (Manual) 81 % (45-75) H Lymphocytes % (Manual) 14 % (20-45) L Monocytes % (Manual) 3 % (1-10) Eosinophils % (Manual) 2 % (0-3) Basophils % (Manual) 0 % (0-2) Band Neutrophils 0 % (0-8) Platelet Estimate Decreased L Platelet Morphology Normal Sodium Level 138 MMOL/L (136-145) Potassium Level 3.6 MMOL/L (3.5-5.1) Chloride Level 102 MMOL/L (98-107) Carbon Dioxide Level 26 MMOL/L (21-32) Anion Gap 10 mmol/L (5-15) Blood Urea Nitrogen 11 mg/dL (7-18) Creatinine 0.8 MG/DL (0.55-1.30) Estimat Glomerular Filtration Rate > 60 mL/min (>60) Glucose Level 177 MG/DL (74-106) H Calcium Level 9.2 MG/DL (8.5-10.1) Microbiology Date/Time Source Procedure Growth Status 03/28/18 17:00 Nasal Nares Influenza Types A,B Antigen (ANGELIKA) - Final Complete 03/28/18 15:25 Sputum Expectorated Gram Stain - Final Complete 03/28/18 15:25 Sputum Expectorated Sputum Culture - Final NORMAL UPPER RESPIRATORY HERLINDA PRESENT Complete Objective HEAD AND NECK: Mild JVD. LUNGS: Decreased breath sounds. CARDIOVASCULAR: Regular S1 and S2 with no gallop. ABDOMEN: Soft. EXTREMITIES: Trace pitting edema. ICD in left subclavian. Yusuf Byrnes MD Mar 31, 2018 14:01
[2018-03-31 16:00] VITALS: BP 119/60
--- NOTE | 2018-03-31 16:09 | NUR ---
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 97.4 HR 59 RR 18 B/P 121/61 4L NC O2 SAT @ 98% IS: FLAGYL IV CEFTRIAXONE IV AZITHROMAX IV SOLU MEDROL IV TELE STATUS
[2018-03-31] MEDS: cefTRIAXone 1 GM in D5W 50 ML IVPB SCH (16:39)
--- NOTE | 2018-03-31 18:55 | Infectious Diseases Prog Note ---
Assessment/Plan Assessment/Plan ASSESSMENT AND PLAN: 1. cap, ? aspiration pna, ct noted, ? influenza infection, sepsis, fevers, leukopenia, sc-nf, arf better - rocephin, flagyl and azithromycin - tamiflu course - day # 3/5 - f/u on chest x-ray, serology and labs - fever curve better - clinically better 2. Elevated LFTs - await serology, us negative, GI f/u 3. The patient has a history of chronic obstructive pulmonary disease. 4. Congestive heart failure. 5. Atrial fibrillation with cardiac defibrillator pacemaker. 6. Diabetes. 7. Hypertension. 8. Dyslipidemia and hyperlipidemia. 9. Diabetes and hypertension. Treatment per primary. 10. History of CVA. 11. Aspiration risk. 12. She is allergic to codeine. 13. Socially, positive for being a former smoker. 14. MAR was noted. 15. Case was discussed with RN. 16. Family history is noncontributory. 17. Continue treatment per primary consultants. 18. Notes and records were noted. Orders were entered. Subjective Constitutional: Reports: fever - fever curve better HEENT: Reports: congestion - less Respiratory: Reports: shortness of breath - less Gastrointestinal/Abdominal: Reports: other - no abdominal pain ; Denies: nausea , vomiting, diarrhea Genitourinary: Reports: other - + maxwell Neurologic: Denies: headache Psychiatric: Denies: depression Skin: Denies: rash Hematologic: Denies: bleeding Musculoskeletal: Denies: pain Allergies: Coded Allergies: CODEINE (Verified Allergy, Unknown, Itching, 03/26/18) Objective Vital Signs Last 24 Hour Vital Signs Date Time Temp Pulse Resp B/P (MAP) Pulse Ox O2 Delivery O2 Flow Rate FiO2 03/31/18 14:25 Nasal Cannula 4.0 36 03/31/18 14:25 Nasal Cannula 4.0 36 03/31/18 12:00 59 03/31/18 11:52 98.6 61 18 124/67 (86) 96 03/31/18 11:05 Nasal Cannula 4.0 36 03/31/18 11:05 Nasal Cannula 4.0 36 03/31/18 09:00 Nasal Cannula 4.0 03/31/18 08:00 97.4 63 18 121/61 (81) 98 03/31/18 08:00 83 03/31/18 08:00 62 03/31/18 07:18 92 Nasal Cannula 4.0 36 03/31/18 07:18 Nasal Cannula 4.0 36 03/31/18 07:18 Nasal Cannula 4.0 36 03/31/18 07:18 Nasal Cannula 4.0 36 03/31/18 04:00 97.7 66 20 123/74 (90) 95 03/31/18 03:23 66 03/31/18 02:51 61 20 93 Nasal Cannula 4.0 36 03/31/18 02:35 61 20 91 Nasal Cannula 4.0 36 03/31/18 00:08 81 20 93 Nasal Cannula 4.0 36 03/31/18 00:00 97.7 62 20 134/76 (95) 95 03/30/18 23:56 62 20 92 Nasal Cannula 4.0 36 03/30/18 23:20 63 03/30/18 21:00 Nasal Cannula 4.0 03/30/18 20:35 80 20 94 Nasal Cannula 4.0 36 03/30/18 20:23 Nasal Cannula 4.0 36 03/30/18 20:23 92 Nasal Cannula 4.0 36 03/30/18 20:23 73 20 92 Nasal Cannula 4.0 36 03/30/18 20:00 97.3 67 20 136/73 (94) 92 03/30/18 20:00 61 Height (Feet): 5 Height (Inches): 0.00 Weight (Pounds): 205 General Appearance: no acute distress HEENT: normocephalic, atraumatic, anicteric, mucous membranes moist Respiratory/Chest: no accessory muscle use, decreased breath sounds, crackles/ rales, rhonchi - bilaterally Cardiovascular: normal rate, regular rhythm, no gallop/murmur, no JVD Abdomen: normal bowel sounds, soft, non tender, no organomegaly, non distended Genitourinary: other - + maxwell - urine slt cloudy, no cva pain Extremities: no cyanosis Skin: no rash Neurologic/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 Pneumonia also likely present within posterior basilar aspects of the lower lobes. Superimposed atelectasis also noted at the lung bases. Please correlate clinically. Mild reticulonodular interstitial disease perihilar distribution, nonspecific. Consider pneumonitis versus superimposed interstitial edema. Cardiomegaly and atherosclerotic vascular disease Pacemaker Status post cholecystectomy. The CT scanner at [facility] is accredited by the [employer] and the scans are performed using dose optimization techniques as appropriate to a performed exam including Automatic Exposure control. Chest x-ray - 03/30/18 FINDINGS: Lungs: Worsening bilateral airspace opacities, worse in the right mid to lower lung. Findings worrisome for edema versus pneumonia. Pleural space: Unremarkable. No pneumothorax. Heart: Cardiomegaly. Mediastinum: Unremarkable. Bones/joints: Degenerative changes of the spine. Tubes, lines and devices: Cardiac pacemaker. IMPRESSION: Worsening bilateral airspace opacities, worse in the right mid to lower lung. Findings worrisome for worsening edema versus pneumonia. Abdominal US - no acute findings Microbiology Date/Time Source Procedure Growth Status 03/28/18 12:50 Blood Blood Culture - Preliminary NO GROWTH AFTER 48 HOURS Resulted 03/28/18 17:00 Nasal Nares Influenza Types A,B Antigen (ANGELIKA) - Final Complete sputum culture - nf Laboratory Tests Test 03/31/18 06:00 White Blood Count 3.4 K/UL (4.8-10.8) L Red Blood Count 3.87 M/UL (4.20-5.40) L Hemoglobin 12.0 G/DL (12.0-16.0) Hematocrit 36.2 % (37.0-47.0) L Mean Corpuscular Volume 93 FL (80-99) Mean Corpuscular Hemoglobin 30.8 PG (27.0-31.0) Mean Corpuscular Hemoglobin Concent 33.0 G/DL (32.0-36.0) Red Cell Distribution Width 14.1 % (11.6-14.8) Platelet Count 100 K/UL (150-450) L Mean Platelet Volume 9.7 FL (6.5-10.1) Neutrophils (%) (Auto) % (45.0-75.0) Lymphocytes (%) (Auto) % (20.0-45.0) Monocytes (%) (Auto) % (1.0-10.0) Eosinophils (%) (Auto) % (0.0-3.0) Basophils (%) (Auto) % (0.0-2.0) Differential Total Cells Counted 100 Neutrophils % (Manual) 81 % (45-75) H Lymphocytes % (Manual) 14 % (20-45) L Monocytes % (Manual) 3 % (1-10) Eosinophils % (Manual) 2 % (0-3) Basophils % (Manual) 0 % (0-2) Band Neutrophils 0 % (0-8) Platelet Estimate Decreased L Platelet Morphology Normal Sodium Level 138 MMOL/L (136-145) Potassium Level 3.6 MMOL/L (3.5-5.1) Chloride Level 102 MMOL/L (98-107) Carbon Dioxide Level 26 MMOL/L (21-32) Anion Gap 10 mmol/L (5-15) Blood Urea Nitrogen 11 mg/dL (7-18) Creatinine 0.8 MG/DL (0.55-1.30) Estimat Glomerular Filtration Rate > 60 mL/min (>60) Glucose Level 177 MG/DL (74-106) H Calcium Level 9.2 MG/DL (8.5-10.1) Current Medications Medications (Trade) Dose Ordered Sig/Arvind Route PRN Reason Start Time Stop Time Status Last Admin Dose Admin Albuterol/ Ipratropium (Albuterol/ Ipratropium) 3 ml Q4HRT HHN 03/27/18 15:00 04/01/18 14:59 03/31/18 02:37 Azithromycin 250 mg/Dextrose 250 ml @ 250 mls/hr Q24HRS IV 03/29/18 15:00 04/05/18 14:59 03/31/18 15:26 Ceftriaxone Sodium 1 gm/ Dextrose 50 ml @ 100 mls/hr Q24H IVPB 03/28/18 16:00 04/04/18 15:59 03/31/18 16:39 Cetylpyridinium Chloride (Cepacol) 1 lozg Q2H PRN REBECCA for sore throat 03/29/18 10:45 04/28/18 10:44 03/31/18 15:36 Dextrose (Dextrose 50%) 25 ml Q30M PRN IV Hypoglycemia 03/26/18 17:00 04/25/18 16:59 Dextrose (Dextrose 50%) 50 ml Q30M PRN IV Hypoglycemia 03/26/18 17:00 04/25/18 16:59 Diphenhydramine HCl (Benadryl) 25 mg Q6H PRN ORAL Itching 03/27/18 00:30 04/26/18 00:29 Insulin Aspart (NovoLOG) BEFORE MEALS AND HS SUBQ 03/26/18 21:00 04/25/18 20:59 03/31/18 16:49 Lorazepam (Ativan) 1 mg Q6H PRN ORAL For Anxiety 03/28/18 11:45 04/04/18 11:44 03/30/18 03:13 Methylprednisolone Sodium Succinate (Solu-MEDROL) 40 mg Q12HR IVP 03/31/18 21:00 04/30/18 20:59 Metronidazole 100 ml @ 100 mls/hr Q12HR IVPB 03/31/18 21:00 04/07/18 20:59 Oseltamivir Phosphate (Tamiflu) 30 mg Q12HR ORAL 03/30/18 09:00 04/01/18 23:00 03/31/18 09:55 Tramadol HCl (Ultram) 50 mg Q12H PRN ORAL Pain 03/28/18 09:00 04/04/18 08:59 03/31/18 01:43 Sj Wren MD Mar 31, 2018 18:55
--- NOTE | 2018-03-31 19:35 | NUR ---
HAND-OFF: Report given to Geoffrey GALICIA.
--- NOTE | 2018-03-31 19:48 | NUR ---
NURSE NOTES: RECEIVED PATIENT RESTING IN BED, NO COMPLAINTS OF PAIN AT THIS TIME. FALL PRECAUTIONS IN PLACE: CALL LIGHT AND BEDSIDE TABLE WITHIN REACH, BED IN LOW POSITION AND BED ALARM ON. PLAN OF CARE REVIEWED.
[2018-03-31 20:00] VITALS: BP 133/76
[2018-03-31] MEDS ORDERED: Solu-MEDROL 40mg Inj IVP SCH (21:00)
[2018-03-31] MEDS: Oseltamivir 75mg cap ORAL SCH (21:03)
--- NOTE | 2018-03-31 22:44 | General Progress Note ---
Assessment/Plan Assessment/Plan Assessment/Plan # Pancytopenia - causes likely multifactorial, could be related to hepatitis, v shock liver, v acute on chronic systolic CHF --> plt trend: 91-->76-->80-->100 --> cards and gi have been consulted --> hepatitis and hiv have been ordered --> us of the abdomen have been ordered as well, currently is negative --> meds have been reviewed --> transfuse as needed, hgb goal >7, and plt goal 20k --> give neupogen if ANC <1500 # Mild hypokalemia --> monitor electrolytes repleted # Abnormal LFTs --> as per gi team, lfts have been reviewed # Suspected congestive hepatopathy --> monitor LFTs --> avoid hepatotoxic meds --> CXR reveals,Worsening bilateral airspace opacities, worse in the right mid to lower lung. Findings worrisome for worsening edema versus pneumonia. # Morbid Obesity --> recommend weight loss once discharged # Reported history of DMII --> on iss, and-Diabetic diet --> a1c goal <7.5 The timing of this note does not necessarily reflect the time of the patient was seen. Greatly appreciate consultation! Subjective Constitutional: Denies: no symptoms, chills, diaphoresis, fever, malaise, weakness, other HEENT: Denies: no symptoms, eye pain, blurred vision, tearing, double vision, ear pain, ear discharge, nose pain, nose congestion, throat pain, throat swelling, mouth pain, mouth swelling, other Cardiovascular: Denies: no symptoms, chest pain, edema, irregular heart rate, lightheadedness, palpitations, syncope, other Respiratory: Denies: no symptoms, cough, orthopnea, shortness of breath, SOB with excertion, SOB at rest, sputum, stridor, wheezing, other Gastrointestinal/Abdominal: Denies: no symptoms, abdomen distended, abdominal pain, black stools, tarry stools, blood in stool, constipated, diarrhea, difficulty swallowing, nausea, poor appetite, poor fluid intake, rectal bleeding , vomiting, other Genitourinary: Denies: no symptoms, burning, discharge, frequency, flank pain, hematuria, incontinence, pain, urgency, other Neurologic/Psychiatric: Denies: no symptoms, anxiety, depressed, emotional problems, headache, numbness, paresthesia, pre-existing deficit, seizure, tingling, tremors, weakness, other Endocrine: Denies: no symptoms, excessive sweating, flushing, intolerance to cold, intolerance to heat, increased hunger, increased thirst, increased urine, unexplained weight gain, unexplained weight loss, other Hematologic/Lymphatic: Denies: no symptoms, anemia, easy bleeding, easy bruising, other Allergies: Coded Allergies: CODEINE (Verified Allergy, Unknown, Itching, 03/26/18) Subjective 03/31: seen by bedside, awake, comfortable, no acute distress. plt trending up , CXR reveals,Worsening bilateral airspace opacities, worse in the right mid to lower lung. Findings worrisome for worsening edema versus pneumonia. Objective Last 24 Hour Vital Signs Date Time Temp Pulse Resp B/P (MAP) Pulse Ox O2 Delivery O2 Flow Rate FiO2 03/31/18 22:37 61 18 Nasal Cannula 4.0 36 03/31/18 22:32 62 20 93 Nasal Cannula 4.0 36 03/31/18 20:04 94 Nasal Cannula 4.0 36 03/31/18 20:04 Nasal Cannula 4.0 36 03/31/18 20:04 Nasal Cannula 4.0 36 03/31/18 20:03 Nasal Cannula 4.0 36 03/31/18 16:00 98.2 61 18 119/60 (79) 94 03/31/18 16:00 59 03/31/18 14:25 Nasal Cannula 4.0 36 03/31/18 14:25 Nasal Cannula 4.0 36 03/31/18 12:00 59 03/31/18 11:52 98.6 61 18 124/67 (86) 96 03/31/18 11:05 Nasal Cannula 4.0 36 03/31/18 11:05 Nasal Cannula 4.0 36 03/31/18 09:00 Nasal Cannula 4.0 03/31/18 08:00 97.4 63 18 121/61 (81) 98 03/31/18 08:00 83 03/31/18 08:00 62 03/31/18 07:18 92 Nasal Cannula 4.0 36 03/31/18 07:18 Nasal Cannula 4.0 36 03/31/18 07:18 Nasal Cannula 4.0 36 03/31/18 07:18 Nasal Cannula 4.0 36 03/31/18 04:00 97.7 66 20 123/74 (90) 95 03/31/18 03:23 66 03/31/18 02:51 61 20 93 Nasal Cannula 4.0 36 03/31/18 02:35 61 20 91 Nasal Cannula 4.0 36 03/31/18 00:08 81 20 93 Nasal Cannula 4.0 36 03/31/18 00:00 97.7 62 20 134/76 (95) 95 03/30/18 23:56 62 20 92 Nasal Cannula 4.0 36 03/30/18 23:20 63 Intake and Output 03/30/18 03/31/18 19:00 07:00 Intake Total 360 ml 260 ml Output Total 600 ml 375 ml Balance -240 ml -115 ml Intake Oral 360 ml 160 ml IV Total 0 ml 100 ml Output Urine Total 600 ml 375 ml Laboratory Tests 03/31/18 06:00: White Blood Count 3.4L, Red Blood Count 3.87L, Hemoglobin 12.0, Hematocrit 36.2L , Mean Corpuscular Volume 93, Mean Corpuscular Hemoglobin 30.8, Mean Corpuscular Hemoglobin Concent 33.0, Red Cell Distribution Width 14.1, Platelet Count 100L, Mean Platelet Volume 9.7, Neutrophils (%) (Auto) , Lymphocytes (%) ( Auto) , Monocytes (%) (Auto) , Eosinophils (%) (Auto) , Basophils (%) (Auto) , Differential Total Cells Counted 100, Neutrophils % (Manual) 81H, Lymphocytes % (Manual) 14L, Monocytes % (Manual) 3, Eosinophils % (Manual) 2, Basophils % ( Manual) 0, Band Neutrophils 0, Platelet Estimate DecreasedL, Platelet Morphology Normal, Sodium Level 138, Potassium Level 3.6, Chloride Level 102, Carbon Dioxide Level 26, Anion Gap 10, Blood Urea Nitrogen 11, Creatinine 0.8, Estimat Glomerular Filtration Rate > 60, Glucose Level 177H, Calcium Level 9.2 Height (Feet): 5 Height (Inches): 0.00 Weight (Pounds): 205 Objective Physical Exam General Appearance: no apparent distress, alert HEENT: normocephalic Neck: normal alignment, supple Respiratory/Chest: no respiratory distress, other - bibasilar rales Cardiovascular/Chest: normal rate, regular rhythm, regularly irregular Abdomen: normal bowel sounds, non tender, soft Extremities: normal range of motion, non-tender Skin Exam: normal pigmentation 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
[2018-03-31] MEDS: LORazepam 1mg tab ORAL PRN (23:41)
[2018-04-01] VITALS: BP 140/77
[2018-04-01] MEDS: Albuterol/Ipratropium 3ml neb HHN SCH ×3 (03:12→10:48)
[2018-04-01 04:00] VITALS: BP 139/61
[2018-04-01] MEDS: NovoLOG Insulin Flexpen SUBQ SCH ×4 (06:20→21:22)
--- NOTE | 2018-04-01 07:10 | NUR ---
NURSE NOTES: I received the patient resting in bed. Patients does not display any signs of distress or SOB. Bed in the lowest position and call light within reach. I will continue to monitor the patient and implement care.
[2018-04-01 07:28] LABS: ALANINE AMINOTRANSFERASE 741 U/L (12-78); ALBUMIN/GLOBULIN RATIO 0.7 (1.0-2.7); ALKALINE PHOSPHATASE 141 U/L (46-116); ANION GAP 7 mmol/L (5-15); ASPARTATE AMINO TRANSFERASE 424 U/L (15-37); BILIRUBIN,TOTAL 0.6 MG/DL (0.2-1.0); BLOOD UREA NITROGEN 15 mg/dL (7-18); CARBON DIOXIDE 28 MMOL/L (21-32); CHLORIDE 104 MMOL/L (98-107); CREATININE 0.8 MG/DL (0.55-1.30); POTASSIUM 3.7 MMOL/L (3.5-5.1); SODIUM 139 MMOL/L (136-145)
[2018-04-01 07:34] LABS: PHOSPHORUS 2.5 MG/DL (2.5-4.9)
--- NOTE | 2018-04-01 07:44 | NUR ---
HAND-OFF: Report given to Laura HUNT RN. PATIENT ASLEEP, NO SIGNS OF DISTRESS NOTED.
[2018-04-01 07:48] LABS: HEMOGLOBIN 11.8 G/DL (12.0-16.0); MEAN CORPUSCULAR VOLUME 93 FL (80-99); PLATELET COUNT 138 K/UL (150-450); RED BLOOD COUNT 3.78 M/UL (4.20-5.40); RED CELL DISTRIBUTION WIDTH 13.7 % (11.6-14.8); WHITE BLOOD COUNT 7.2 K/UL (4.8-10.8)
[2018-04-01 08:00] VITALS: BP 125/64
--- NOTE | 2018-04-01 08:23 | Pulmonology Progress Note ---
Assessment/Plan Problems: (1) Upper respiratory infection (2) PNA (pneumonia) (3) Transaminitis (4) Shock liver (5) CHF (congestive heart failure) (6) Elevated LFTs (7) Acute renal failure (8) Obesity (9) Pacemaker Assessment/Plan ASSESSMENT: The patient is a 57-year-old female with a history of obesity, likely obesity hypoventilation, former smoker, chronic obstructive pulmonary disease, congestive heart failure with diastolic dysfunction, likely ischemic cardiomyopathy, automatic implanted cardioverter defibrillator, diabetes, hypertension, hyperlipidemia, prior CVA, presenting with respiratory illness with community-acquired pneumonia and hemoptysis with a possible exacerbation of underlying chronic obstructive pulmonary disease. PROBLEM LIST: 1. Community-acquired pneumonia. 2. Hemoptysis likely secondary to #1 above - RESOLVED 3. COPD without evidence of exacerbation. 4. Congestive heart failure without evidence of decompensated heart failure. 5. Atrial fibrillation/sick sinus syndrome, status post automatic implanted cardioverter defibrillator. 6. Acute kidney injury - RESOLVED 7. Abnormal LFT's, likely shock liver - IMPROVED 7. Diabetes, HTN, HL, prior CVA TREATMENT PLAN: 1. Optimize pulmonary hygiene/mobilize as tolerated. 2. P.r.n. O2 to keep saturations greater than 90%. 3. Continue to hold A/C, can likely resume next 1-2 days 4. Monitor for further hemoptysis. 5. Infiltrates need to be followed to resolution 6. RTC and PRN DuoNebs. 7. Abx per ID, ? D/C Tamiflu - neg viral panel 8. Follow up cultures and serologies. 9. Monitor volumes and renal function 10. DVT prophylaxis, SCDs. 11. Monitor LFT's 12. The patient should have outpatient PFTs and sleep studies. 13. The patient is a Full Code. Subjective Allergies: Coded Allergies: CODEINE (Verified Allergy, Unknown, Itching, 03/26/18) Subjective AFVSS O2 needs stable on 4L + cough with less phlegm, no hemoptysis, less SOB, no F/C LFT's continue to improve Objective Last 24 Hour Vital Signs Date Time Temp Pulse Resp B/P (MAP) Pulse Ox O2 Delivery O2 Flow Rate FiO2 04/01/18 08:00 98.9 59 18 125/64 (84) 96 04/01/18 07:16 Nasal Cannula 4.0 36 04/01/18 07:16 93 Nasal Cannula 4.0 36 04/01/18 07:16 Nasal Cannula 4.0 36 04/01/18 07:16 Nasal Cannula 4.0 36 04/01/18 04:00 98.0 72 18 139/61 (87) 97 04/01/18 04:00 56 04/01/18 03:19 62 20 98 Nasal Cannula 4.0 36 04/01/18 03:12 60 20 93 Nasal Cannula 4.0 36 04/01/18 00:00 59 04/01/18 00:00 96.8 61 18 140/77 (98) 98 03/31/18 22:39 65 20 97 Nasal Cannula 4.0 36 03/31/18 22:37 61 18 Nasal Cannula 4.0 36 03/31/18 22:32 62 20 93 Nasal Cannula 4.0 36 03/31/18 21:00 Nasal Cannula 4.0 03/31/18 20:04 94 Nasal Cannula 4.0 36 03/31/18 20:04 Nasal Cannula 4.0 36 03/31/18 20:04 Nasal Cannula 4.0 36 03/31/18 20:03 Nasal Cannula 4.0 36 03/31/18 20:00 97.5 58 18 133/76 (95) 96 03/31/18 20:00 58 03/31/18 16:00 98.2 61 18 119/60 (79) 94 03/31/18 16:00 59 03/31/18 14:25 Nasal Cannula 4.0 36 03/31/18 14:25 Nasal Cannula 4.0 36 03/31/18 12:00 59 03/31/18 11:52 98.6 61 18 124/67 (86) 96 03/31/18 11:05 Nasal Cannula 4.0 36 03/31/18 11:05 Nasal Cannula 4.0 36 03/31/18 09:00 Nasal Cannula 4.0 Intake and Output 03/31/18 04/01/18 19:00 07:00 Intake Total 420 ml 220 ml Output Total 225 ml 350 ml Balance 195 ml -130 ml Intake Oral 420 ml 120 ml IV Total 100 ml Output Urine Total 225 ml 350 ml General Appearance: WD/WN, no acute distress HEENT: normocephalic, atraumatic, anicteric, mucous membranes moist Respiratory/Chest: chest wall non-tender, lungs clear, crackles/rales Cardiovascular: normal peripheral pulses, normal rate, regular rhythm Abdomen: normal bowel sounds, soft, non tender, no organomegaly, non distended , no mass Extremities: no cyanosis, no clubbing, no edema Laboratory Tests 04/01/18 06:10: White Blood Count 7.2#, Red Blood Count 3.78L, Hemoglobin 11.8L, Hematocrit 35.0L, Mean Corpuscular Volume 93, Mean Corpuscular Hemoglobin 31.2H, Mean Corpuscular Hemoglobin Concent 33.7, Red Cell Distribution Width 13.7, Platelet Count 138L, Mean Platelet Volume 9.8, Neutrophils (%) (Auto) , Lymphocytes (%) ( Auto) , Monocytes (%) (Auto) , Eosinophils (%) (Auto) , Basophils (%) (Auto) , Neutrophils % (Manual) [Pending], Lymphocytes % (Manual) [Pending], Platelet Estimate [Pending], Platelet Morphology [Pending], Sodium Level 139, Potassium Level 3.7, Chloride Level 104, Carbon Dioxide Level 28, Anion Gap 7, Blood Urea Nitrogen 15, Creatinine 0.8, Estimat Glomerular Filtration Rate > 60, Glucose Level 148H, Uric Acid 2.9, Calcium Level 9.0, Phosphorus Level 2.5, Magnesium Level 2.1, Total Bilirubin 0.6, Gamma Glutamyl Transpeptidase 616H, Aspartate Amino Transf (AST/SGOT) 424H, Alanine Aminotransferase (ALT/SGPT) 741H, Alkaline Phosphatase 141H, Total Protein 7.4, Albumin 3.0L, Globulin 4.4, Albumin/Globulin Ratio 0.7L, Coccidioides Antibody (Comp Fix) [Pending] Current Medications Medications (Trade) Dose Ordered Sig/Arvind Route PRN Reason Start Time Stop Time Status Last Admin Dose Admin Albuterol/ Ipratropium (Albuterol/ Ipratropium) 3 ml Q4HRT HHN 03/27/18 15:00 04/01/18 14:59 04/01/18 03:12 Azithromycin 250 mg/Dextrose 250 ml @ 250 mls/hr Q24HRS IV 03/29/18 15:00 04/05/18 14:59 03/31/18 15:26 Ceftriaxone Sodium 1 gm/ Dextrose 50 ml @ 100 mls/hr Q24H IVPB 03/28/18 16:00 04/04/18 15:59 03/31/18 16:39 Cetylpyridinium Chloride (Cepacol) 1 lozg Q2H PRN REBECCA for sore throat 03/29/18 10:45 04/28/18 10:44 03/31/18 15:36 Dextrose (Dextrose 50%) 25 ml Q30M PRN IV Hypoglycemia 03/26/18 17:00 04/25/18 16:59 Dextrose (Dextrose 50%) 50 ml Q30M PRN IV Hypoglycemia 03/26/18 17:00 04/25/18 16:59 Diphenhydramine HCl (Benadryl) 25 mg Q6H PRN ORAL Itching 03/27/18 00:30 04/26/18 00:29 Insulin Aspart (NovoLOG) BEFORE MEALS AND HS SUBQ 03/26/18 21:00 04/25/18 20:59 03/31/18 16:49 Lorazepam (Ativan) 1 mg Q6H PRN ORAL For Anxiety 03/28/18 11:45 04/04/18 11:44 03/31/18 23:41 Methylprednisolone Sodium Succinate (Solu-MEDROL) 40 mg Q12HR IVP 03/31/18 21:00 04/30/18 20:59 03/31/18 21:04 Metronidazole 100 ml @ 100 mls/hr Q12HR IVPB 03/31/18 21:00 04/07/18 20:59 03/31/18 21:03 Oseltamivir Phosphate (Tamiflu) 75 mg Q12HR ORAL 03/31/18 21:00 04/03/18 21:01 03/31/18 21:03 Tramadol HCl (Ultram) 50 mg Q12H PRN ORAL Pain 03/28/18 09:00 04/04/18 08:59 03/31/18 01:43 Tyler Bardales MD Apr 01, 2018 08:23
[2018-04-01] MEDS: LORazepam 1mg tab ORAL PRN (09:02)
[2018-04-01] MEDS: Oseltamivir 75mg cap ORAL SCH ×2 (09:02→21:15)
[2018-04-01] MEDS: Solu-MEDROL 40mg Inj IVP SCH ×2 (09:02→21:15)
--- NOTE | 2018-04-01 10:45 | Nephrology Progress Note ---
Assessment/Plan Problem List: (1) Acute renal failure (2) Shock liver (3) Obesity (4) Pacemaker Assessment Acute renal failure- rsolved Elevated liver enzymes improving Low BP Pneumonia Atrial Fib Pacer COPD Obesity Plan DC Diuretics Huizar Urine studies Fluid challenge watch for CHF Sxs monitor renal parameters DC Zithromax if possible? due to high LFTs ?? tapering steroids Subjective ROS Limited/Unobtainable: No Constitutional: Reports: malaise Objective Objective Last 24 Hour Vital Signs Date Time Temp Pulse Resp B/P (MAP) Pulse Ox O2 Delivery O2 Flow Rate FiO2 04/01/18 08:00 98.9 59 18 125/64 (84) 96 04/01/18 07:16 Nasal Cannula 4.0 36 04/01/18 07:16 93 Nasal Cannula 4.0 36 04/01/18 07:16 Nasal Cannula 4.0 36 04/01/18 07:16 Nasal Cannula 4.0 36 04/01/18 04:00 98.0 72 18 139/61 (87) 97 04/01/18 04:00 56 04/01/18 03:19 62 20 98 Nasal Cannula 4.0 36 04/01/18 03:12 60 20 93 Nasal Cannula 4.0 36 04/01/18 00:00 59 04/01/18 00:00 96.8 61 18 140/77 (98) 98 03/31/18 22:39 65 20 97 Nasal Cannula 4.0 36 03/31/18 22:37 61 18 Nasal Cannula 4.0 36 03/31/18 22:32 62 20 93 Nasal Cannula 4.0 36 03/31/18 21:00 Nasal Cannula 4.0 03/31/18 20:04 94 Nasal Cannula 4.0 36 03/31/18 20:04 Nasal Cannula 4.0 36 03/31/18 20:04 Nasal Cannula 4.0 36 03/31/18 20:03 Nasal Cannula 4.0 36 03/31/18 20:00 97.5 58 18 133/76 (95) 96 03/31/18 20:00 58 03/31/18 16:00 98.2 61 18 119/60 (79) 94 03/31/18 16:00 59 03/31/18 14:25 Nasal Cannula 4.0 36 03/31/18 14:25 Nasal Cannula 4.0 36 03/31/18 12:00 59 03/31/18 11:52 98.6 61 18 124/67 (86) 96 03/31/18 11:05 Nasal Cannula 4.0 36 03/31/18 11:05 Nasal Cannula 4.0 36 Intake and Output 03/31/18 04/01/18 18:59 06:59 Intake Total 420 ml 220 ml Output Total 225 ml 350 ml Balance 195 ml -130 ml Intake Oral 420 ml 120 ml IV Total 100 ml Output Urine Total 225 ml 350 ml Laboratory Tests 04/01/18 06:10: White Blood Count 7.2#, Red Blood Count 3.78L, Hemoglobin 11.8L, Hematocrit 35.0L, Mean Corpuscular Volume 93, Mean Corpuscular Hemoglobin 31.2H, Mean Corpuscular Hemoglobin Concent 33.7, Red Cell Distribution Width 13.7, Platelet Count 138L, Mean Platelet Volume 9.8, Neutrophils (%) (Auto) , Lymphocytes (%) ( Auto) , Monocytes (%) (Auto) , Eosinophils (%) (Auto) , Basophils (%) (Auto) , Neutrophils % (Manual) [Pending], Lymphocytes % (Manual) [Pending], Platelet Estimate [Pending], Platelet Morphology [Pending], Sodium Level 139, Potassium Level 3.7, Chloride Level 104, Carbon Dioxide Level 28, Anion Gap 7, Blood Urea Nitrogen 15, Creatinine 0.8, Estimat Glomerular Filtration Rate > 60, Glucose Level 148H, Uric Acid 2.9, Calcium Level 9.0, Phosphorus Level 2.5, Magnesium Level 2.1, Total Bilirubin 0.6, Gamma Glutamyl Transpeptidase 616H, Aspartate Amino Transf (AST/SGOT) 424H, Alanine Aminotransferase (ALT/SGPT) 741H, Alkaline Phosphatase 141H, Total Protein 7.4, Albumin 3.0L, Globulin 4.4, Albumin/Globulin Ratio 0.7L, Coccidioides Antibody (Comp Fix) [Pending] Height (Feet): 5 Height (Inches): 0.00 Weight (Pounds): 205 General Appearance: no apparent distress Cardiovascular: normal rate, bradycardia Respiratory/Chest: decreased breath sounds Abdomen: soft Objective no change Elliot Figueroa MD Apr 01, 2018 10:45
[2018-04-01 12:00] VITALS: BP 121/66
--- NOTE | 2018-04-01 13:19 | General Progress Note ---
Assessment/Plan Assessment/Plan #Acute hypoxic respiratory failure, present on admission #Severe sepsis due to multifocal pneumonia, present on admission #CT chest shows Evidence of right middle lobe airspace disease also likely present within posterior basilar aspects of the lower lobes. -continue with IV antibiotics -wean supplemental oxygen -all cultures negative to date -use cooling blanket for fever, avoid Tylenol and NSAIDS -Pulmonology and ID following #COPD exacerbation -continue Duoneb -taper Solu-Medrol -change to prednisone tomorrow -ABG results reviewed #SERG, creatinine up to 2.5, resolving -fluids stopped -hold all nephrotoxic meds -Nephrology following -check daily BMP #Acute on chronic systolic CHF, resolving #history of atrial fibrillation continue telemetry Cardiology following stop Lasix given SERG hold Coreg due to mild hypotension hold Aldactone due to SERG hold lisinopril due to SERG stop amiodarone due to abnormal LFS Eliquis held due to abnormal LFTs monitor I&O Daily weights 2 gram sodium diet #Mild hypokalemia -resolved #Abnormal LFTs, resolving #Suspected congestive hepatopathy vs ischemic hepatopathy -improved LFTs -RUQ US unremarkable -GI eval appreciated -Eliquis held per pharmacy recs -Tramadol dose reduced per pharmacy recs -Amiodarone held #Morbid Obesity #Reported history of DMII -ISS -Diabetic diet VTE PPx heparin SC Full Code Subjective Date patient seen: Apr 01, 2018 Time patient seen: 12:30 Constitutional: Denies: chills, fever HEENT: Denies: blurred vision Cardiovascular: Denies: chest pain Respiratory: Denies: cough Gastrointestinal/Abdominal: Denies: abdomen distended Allergies: Coded Allergies: CODEINE (Verified Allergy, Unknown, Itching, 03/26/18) Subjective Medicine followup for severe sepsis due to multifocal pneumonia, SERG, acute CHF. Symptoms continue to improve. Eating well. Objective Last 24 Hour Vital Signs Date Time Temp Pulse Resp B/P (MAP) Pulse Ox O2 Delivery O2 Flow Rate FiO2 04/01/18 12:00 96.6 60 18 121/66 (84) 97 04/01/18 10:57 60 20 98 Nasal Cannula 4.0 36 04/01/18 10:48 63 20 94 Nasal Cannula 4.0 36 04/01/18 09:00 Nasal Cannula 4.0 04/01/18 08:00 98.9 59 18 125/64 (84) 96 04/01/18 07:58 56 04/01/18 07:57 63 04/01/18 07:16 Nasal Cannula 4.0 36 04/01/18 07:16 93 Nasal Cannula 4.0 36 04/01/18 07:16 Nasal Cannula 4.0 36 04/01/18 07:16 Nasal Cannula 4.0 36 04/01/18 04:00 98.0 72 18 139/61 (87) 97 04/01/18 04:00 56 04/01/18 03:19 62 20 98 Nasal Cannula 4.0 36 04/01/18 03:12 60 20 93 Nasal Cannula 4.0 36 04/01/18 00:00 59 04/01/18 00:00 96.8 61 18 140/77 (98) 98 03/31/18 22:39 65 20 97 Nasal Cannula 4.0 36 03/31/18 22:37 61 18 Nasal Cannula 4.0 36 03/31/18 22:32 62 20 93 Nasal Cannula 4.0 36 03/31/18 21:00 Nasal Cannula 4.0 03/31/18 20:04 94 Nasal Cannula 4.0 36 03/31/18 20:04 Nasal Cannula 4.0 36 03/31/18 20:04 Nasal Cannula 4.0 36 03/31/18 20:03 Nasal Cannula 4.0 36 03/31/18 20:00 97.5 58 18 133/76 (95) 96 03/31/18 20:00 58 03/31/18 16:00 98.2 61 18 119/60 (79) 94 03/31/18 16:00 59 03/31/18 14:25 Nasal Cannula 4.0 36 03/31/18 14:25 Nasal Cannula 4.0 36 Intake and Output 03/31/18 04/01/18 18:59 06:59 Intake Total 420 ml 220 ml Output Total 225 ml 350 ml Balance 195 ml -130 ml Intake Oral 420 ml 120 ml IV Total 100 ml Output Urine Total 225 ml 350 ml Laboratory Tests 04/01/18 06:10: White Blood Count 7.2#, Red Blood Count 3.78L, Hemoglobin 11.8L, Hematocrit 35.0L, Mean Corpuscular Volume 93, Mean Corpuscular Hemoglobin 31.2H, Mean Corpuscular Hemoglobin Concent 33.7, Red Cell Distribution Width 13.7, Platelet Count 138L, Mean Platelet Volume 9.8, Neutrophils (%) (Auto) , Lymphocytes (%) ( Auto) , Monocytes (%) (Auto) , Eosinophils (%) (Auto) , Basophils (%) (Auto) , Differential Total Cells Counted 100, Neutrophils % (Manual) 81H, Lymphocytes % (Manual) 8L, Monocytes % (Manual) 10, Eosinophils % (Manual) 0, Basophils % ( Manual) 0, Band Neutrophils 1, Platelet Estimate DecreasedL, Platelet Morphology Normal, Red Blood Cell Morphology Normal, Sodium Level 139, Potassium Level 3.7, Chloride Level 104, Carbon Dioxide Level 28, Anion Gap 7, Blood Urea Nitrogen 15, Creatinine 0.8, Estimat Glomerular Filtration Rate > 60 , Glucose Level 148H, Uric Acid 2.9, Calcium Level 9.0, Phosphorus Level 2.5, Magnesium Level 2.1, Total Bilirubin 0.6, Gamma Glutamyl Transpeptidase 616H, Aspartate Amino Transf (AST/SGOT) 424H, Alanine Aminotransferase (ALT/SGPT) 741H , Alkaline Phosphatase 141H, Total Protein 7.4, Albumin 3.0L, Globulin 4.4, Albumin/Globulin Ratio 0.7L, Coccidioides Antibody (Comp Fix) [Pending] Height (Feet): 5 Height (Inches): 0.00 Weight (Pounds): 205 General Appearance: no apparent distress, alert EENT: normal ENT inspection Neck: non-tender, supple Cardiovascular: normal rate, regular rhythm Respiratory/Chest: lungs clear, normal breath sounds Abdomen: non tender, soft Declan Crespo MD Apr 01, 2018 13:19
--- NOTE | 2018-04-01 13:20 | GI Progress Note ---
Assessment/Plan Problems: (1) Shock liver ICD Codes: K72.00 - Acute and subacute hepatic failure without coma SNOMED: 407661673 (2) CHF (congestive heart failure) ICD Codes: I50.9 - Heart failure, unspecified SNOMED: 03720873 Qualifiers: Qualified Codes: I50.9 - Heart failure, unspecified (3) Transaminitis ICD Codes: R74.0 - Nonspecific elevation of levels of transaminase and lactic acid dehydrogenase [LDH] SNOMED: 447761563, 187304994 Status: stable Status Narrative Discussed with Dr. Pate. Assessment/Plan Negative abdominal ultrasound Most likely liver shock due to ischemia Hepatitis panel to rule out any viral cause >> negative utox r/o drug induced >> negative Will consider autoimmune markers if necessary okay to advance diet trend LFTs, downtrending fu pulmonary recs follow labs The patient was seen and examined at bedside and all new and available data was reviewed in the patients chart. I agree with the above findings, impression and plan. (Patient seen earlier today. Signature stamp does not reflect patient encounter time.). - Salvador Pate MD Subjective Subjective Still has complaint of shortness of breath Overall feels better Denies any abdominal pain, denies any nausea or vomiting Objective Last 24 Hour Vital Signs Date Time Temp Pulse Resp B/P (MAP) Pulse Ox O2 Delivery O2 Flow Rate FiO2 04/01/18 12:00 96.6 60 18 121/66 (84) 97 04/01/18 10:57 60 20 98 Nasal Cannula 4.0 36 04/01/18 10:48 63 20 94 Nasal Cannula 4.0 36 04/01/18 09:00 Nasal Cannula 4.0 04/01/18 08:00 98.9 59 18 125/64 (84) 96 04/01/18 07:58 56 04/01/18 07:57 63 04/01/18 07:16 Nasal Cannula 4.0 36 04/01/18 07:16 93 Nasal Cannula 4.0 36 04/01/18 07:16 Nasal Cannula 4.0 36 04/01/18 07:16 Nasal Cannula 4.0 36 04/01/18 04:00 98.0 72 18 139/61 (87) 97 04/01/18 04:00 56 04/01/18 03:19 62 20 98 Nasal Cannula 4.0 36 04/01/18 03:12 60 20 93 Nasal Cannula 4.0 36 04/01/18 00:00 59 04/01/18 00:00 96.8 61 18 140/77 (98) 98 03/31/18 22:39 65 20 97 Nasal Cannula 4.0 36 03/31/18 22:37 61 18 Nasal Cannula 4.0 36 03/31/18 22:32 62 20 93 Nasal Cannula 4.0 36 03/31/18 21:00 Nasal Cannula 4.0 03/31/18 20:04 94 Nasal Cannula 4.0 36 03/31/18 20:04 Nasal Cannula 4.0 36 03/31/18 20:04 Nasal Cannula 4.0 36 03/31/18 20:03 Nasal Cannula 4.0 36 03/31/18 20:00 97.5 58 18 133/76 (95) 96 03/31/18 20:00 58 03/31/18 16:00 98.2 61 18 119/60 (79) 94 03/31/18 16:00 59 03/31/18 14:25 Nasal Cannula 4.0 36 03/31/18 14:25 Nasal Cannula 4.0 36 Intake and Output 03/31/18 04/01/18 18:59 06:59 Intake Total 420 ml 220 ml Output Total 225 ml 350 ml Balance 195 ml -130 ml Intake Oral 420 ml 120 ml IV Total 100 ml Output Urine Total 225 ml 350 ml Laboratory Tests Test 04/01/18 06:10 White Blood Count 7.2 K/UL (4.8-10.8) # Red Blood Count 3.78 M/UL (4.20-5.40) L Hemoglobin 11.8 G/DL (12.0-16.0) L Hematocrit 35.0 % (37.0-47.0) L Mean Corpuscular Volume 93 FL (80-99) Mean Corpuscular Hemoglobin 31.2 PG (27.0-31.0) H Mean Corpuscular Hemoglobin Concent 33.7 G/DL (32.0-36.0) Red Cell Distribution Width 13.7 % (11.6-14.8) Platelet Count 138 K/UL (150-450) L Mean Platelet Volume 9.8 FL (6.5-10.1) Neutrophils (%) (Auto) % (45.0-75.0) Lymphocytes (%) (Auto) % (20.0-45.0) Monocytes (%) (Auto) % (1.0-10.0) Eosinophils (%) (Auto) % (0.0-3.0) Basophils (%) (Auto) % (0.0-2.0) Differential Total Cells Counted 100 Neutrophils % (Manual) 81 % (45-75) H Lymphocytes % (Manual) 8 % (20-45) L Monocytes % (Manual) 10 % (1-10) Eosinophils % (Manual) 0 % (0-3) Basophils % (Manual) 0 % (0-2) Band Neutrophils 1 % (0-8) Platelet Estimate Decreased L Platelet Morphology Normal Red Blood Cell Morphology Normal Sodium Level 139 MMOL/L (136-145) Potassium Level 3.7 MMOL/L (3.5-5.1) Chloride Level 104 MMOL/L (98-107) Carbon Dioxide Level 28 MMOL/L (21-32) Anion Gap 7 mmol/L (5-15) Blood Urea Nitrogen 15 mg/dL (7-18) Creatinine 0.8 MG/DL (0.55-1.30) Estimat Glomerular Filtration Rate > 60 mL/min (>60) Glucose Level 148 MG/DL (74-106) H Uric Acid 2.9 MG/DL (2.6-7.2) Calcium Level 9.0 MG/DL (8.5-10.1) Phosphorus Level 2.5 MG/DL (2.5-4.9) Magnesium Level 2.1 MG/DL (1.8-2.4) Total Bilirubin 0.6 MG/DL (0.2-1.0) Gamma Glutamyl Transpeptidase 616 U/L (5-85) H Aspartate Amino Transf (AST/SGOT) 424 U/L (15-37) H Alanine Aminotransferase (ALT/SGPT) 741 U/L (12-78) H Alkaline Phosphatase 141 U/L (46-116) H Total Protein 7.4 G/DL (6.4-8.2) Albumin 3.0 G/DL (3.4-5.0) L Globulin 4.4 g/dL Albumin/Globulin Ratio 0.7 (1.0-2.7) L Coccidioides Antibody (Comp Fix) Pending Height (Feet): 5 Height (Inches): 0.00 Weight (Pounds): 205 General Appearance: WD/WN, no apparent distress, alert Cardiovascular: normal rate Respiratory/Chest: normal breath sounds, no respiratory distress Abdominal Exam: normal bowel sounds, non tender, soft Extremities: normal range of motion, non-tender Johnny Roth NP Apr 01, 2018 13:20
--- NOTE | 2018-04-01 13:25 | General Progress Note ---
Assessment/Plan Problem List: (1) MDD (major depressive disorder), recurrent episode, moderate ICD Codes: F33.1 - Major depressive disorder, recurrent, moderate SNOMED: 94747281, 657281201 (2) Anxiety disorder ICD Codes: F41.9 - Anxiety disorder, unspecified SNOMED: 566497337 Assessment/Plan ativan prn lexapro 10mg po qam provided ro/st trazadone 50mg po qhs Subjective Neurologic/Psychiatric: Reports: anxiety, depressed, emotional problems Allergies: Coded Allergies: CODEINE (Verified Allergy, Unknown, Itching, 03/26/18) Objective Last 24 Hour Vital Signs Date Time Temp Pulse Resp B/P (MAP) Pulse Ox O2 Delivery O2 Flow Rate FiO2 04/01/18 12:00 96.6 60 18 121/66 (84) 97 04/01/18 10:57 60 20 98 Nasal Cannula 4.0 36 04/01/18 10:48 63 20 94 Nasal Cannula 4.0 36 04/01/18 09:00 Nasal Cannula 4.0 04/01/18 08:00 98.9 59 18 125/64 (84) 96 04/01/18 07:58 56 04/01/18 07:57 63 04/01/18 07:16 Nasal Cannula 4.0 36 04/01/18 07:16 93 Nasal Cannula 4.0 36 04/01/18 07:16 Nasal Cannula 4.0 36 04/01/18 07:16 Nasal Cannula 4.0 36 04/01/18 04:00 98.0 72 18 139/61 (87) 97 04/01/18 04:00 56 04/01/18 03:19 62 20 98 Nasal Cannula 4.0 36 04/01/18 03:12 60 20 93 Nasal Cannula 4.0 36 04/01/18 00:00 59 04/01/18 00:00 96.8 61 18 140/77 (98) 98 03/31/18 22:39 65 20 97 Nasal Cannula 4.0 36 03/31/18 22:37 61 18 Nasal Cannula 4.0 36 03/31/18 22:32 62 20 93 Nasal Cannula 4.0 36 03/31/18 21:00 Nasal Cannula 4.0 03/31/18 20:04 94 Nasal Cannula 4.0 36 03/31/18 20:04 Nasal Cannula 4.0 36 03/31/18 20:04 Nasal Cannula 4.0 36 03/31/18 20:03 Nasal Cannula 4.0 36 03/31/18 20:00 97.5 58 18 133/76 (95) 96 03/31/18 20:00 58 03/31/18 16:00 98.2 61 18 119/60 (79) 94 03/31/18 16:00 59 03/31/18 14:25 Nasal Cannula 4.0 36 03/31/18 14:25 Nasal Cannula 4.0 36 Intake and Output 03/31/18 04/01/18 18:59 06:59 Intake Total 420 ml 220 ml Output Total 225 ml 350 ml Balance 195 ml -130 ml Intake Oral 420 ml 120 ml IV Total 100 ml Output Urine Total 225 ml 350 ml Laboratory Tests 04/01/18 06:10: White Blood Count 7.2#, Red Blood Count 3.78L, Hemoglobin 11.8L, Hematocrit 35.0L, Mean Corpuscular Volume 93, Mean Corpuscular Hemoglobin 31.2H, Mean Corpuscular Hemoglobin Concent 33.7, Red Cell Distribution Width 13.7, Platelet Count 138L, Mean Platelet Volume 9.8, Neutrophils (%) (Auto) , Lymphocytes (%) ( Auto) , Monocytes (%) (Auto) , Eosinophils (%) (Auto) , Basophils (%) (Auto) , Differential Total Cells Counted 100, Neutrophils % (Manual) 81H, Lymphocytes % (Manual) 8L, Monocytes % (Manual) 10, Eosinophils % (Manual) 0, Basophils % ( Manual) 0, Band Neutrophils 1, Platelet Estimate DecreasedL, Platelet Morphology Normal, Red Blood Cell Morphology Normal, Sodium Level 139, Potassium Level 3.7, Chloride Level 104, Carbon Dioxide Level 28, Anion Gap 7, Blood Urea Nitrogen 15, Creatinine 0.8, Estimat Glomerular Filtration Rate > 60 , Glucose Level 148H, Uric Acid 2.9, Calcium Level 9.0, Phosphorus Level 2.5, Magnesium Level 2.1, Total Bilirubin 0.6, Gamma Glutamyl Transpeptidase 616H, Aspartate Amino Transf (AST/SGOT) 424H, Alanine Aminotransferase (ALT/SGPT) 741H , Alkaline Phosphatase 141H, Total Protein 7.4, Albumin 3.0L, Globulin 4.4, Albumin/Globulin Ratio 0.7L, Coccidioides Antibody (Comp Fix) [Pending] Height (Feet): 5 Height (Inches): 0.00 Weight (Pounds): 205 General Appearance: no apparent distress, alert, obese Neurologic: oriented x 3, responsive, depressed affect Demetri Cooper MD Apr 01, 2018 13:25
--- NOTE | 2018-04-01 15:35 | Cardiac Electrophysiology PN ---
Assessment/Plan Assessment/Plan 1. Exacerbation of CHF due to Diastolic dysfunction. BNP of more than 3000. EF 55%. Off Lasix, Coreg, Lisinopril and Aldactone Start Lasix 40 mg po daily 2. Status post [employer] defibrillator implantation in 03/2017 3. Cough and hemoptysis. Was on Eliquis at home that was DCed. On Oxygen 7 liter of NC 4. Elevated AST and ALT in the thousands. Hepatitis panel is pending, but could be secondary to hepatic congestion and secondary to congestive heart failure. Amiodarone DCed. Levels are down now. 5. Fever, recurrent. On iv Abx per ID and Pulmonary 6. Hypotension and renal failure Cr 2.5 All BP /CHF meds were DCed. Creatinine normalized to 0.8 DW RN Subjective Subjective In SR. No events Objective Last 24 Hour Vital Signs Date Time Temp Pulse Resp B/P (MAP) Pulse Ox O2 Delivery O2 Flow Rate FiO2 04/01/18 12:00 96.6 60 18 121/66 (84) 97 04/01/18 10:57 60 20 98 Nasal Cannula 4.0 36 04/01/18 10:48 63 20 94 Nasal Cannula 4.0 36 04/01/18 09:00 Nasal Cannula 4.0 04/01/18 08:00 98.9 59 18 125/64 (84) 96 04/01/18 07:58 56 04/01/18 07:57 63 04/01/18 07:16 Nasal Cannula 4.0 36 04/01/18 07:16 93 Nasal Cannula 4.0 36 04/01/18 07:16 Nasal Cannula 4.0 36 04/01/18 07:16 Nasal Cannula 4.0 36 04/01/18 04:00 98.0 72 18 139/61 (87) 97 04/01/18 04:00 56 04/01/18 03:19 62 20 98 Nasal Cannula 4.0 36 04/01/18 03:12 60 20 93 Nasal Cannula 4.0 36 04/01/18 00:00 59 04/01/18 00:00 96.8 61 18 140/77 (98) 98 03/31/18 22:39 65 20 97 Nasal Cannula 4.0 36 03/31/18 22:37 61 18 Nasal Cannula 4.0 36 03/31/18 22:32 62 20 93 Nasal Cannula 4.0 36 03/31/18 21:00 Nasal Cannula 4.0 03/31/18 20:04 94 Nasal Cannula 4.0 36 03/31/18 20:04 Nasal Cannula 4.0 36 03/31/18 20:04 Nasal Cannula 4.0 36 03/31/18 20:03 Nasal Cannula 4.0 36 03/31/18 20:00 97.5 58 18 133/76 (95) 96 03/31/18 20:00 58 03/31/18 16:00 98.2 61 18 119/60 (79) 94 03/31/18 16:00 59 Intake and Output 03/31/18 04/01/18 18:59 06:59 Intake Total 420 ml 220 ml Output Total 225 ml 350 ml Balance 195 ml -130 ml Intake Oral 420 ml 120 ml IV Total 100 ml Output Urine Total 225 ml 350 ml Laboratory Tests Test 04/01/18 06:10 White Blood Count 7.2 K/UL (4.8-10.8) # Red Blood Count 3.78 M/UL (4.20-5.40) L Hemoglobin 11.8 G/DL (12.0-16.0) L Hematocrit 35.0 % (37.0-47.0) L Mean Corpuscular Volume 93 FL (80-99) Mean Corpuscular Hemoglobin 31.2 PG (27.0-31.0) H Mean Corpuscular Hemoglobin Concent 33.7 G/DL (32.0-36.0) Red Cell Distribution Width 13.7 % (11.6-14.8) Platelet Count 138 K/UL (150-450) L Mean Platelet Volume 9.8 FL (6.5-10.1) Neutrophils (%) (Auto) % (45.0-75.0) Lymphocytes (%) (Auto) % (20.0-45.0) Monocytes (%) (Auto) % (1.0-10.0) Eosinophils (%) (Auto) % (0.0-3.0) Basophils (%) (Auto) % (0.0-2.0) Differential Total Cells Counted 100 Neutrophils % (Manual) 81 % (45-75) H Lymphocytes % (Manual) 8 % (20-45) L Monocytes % (Manual) 10 % (1-10) Eosinophils % (Manual) 0 % (0-3) Basophils % (Manual) 0 % (0-2) Band Neutrophils 1 % (0-8) Platelet Estimate Decreased L Platelet Morphology Normal Red Blood Cell Morphology Normal Sodium Level 139 MMOL/L (136-145) Potassium Level 3.7 MMOL/L (3.5-5.1) Chloride Level 104 MMOL/L (98-107) Carbon Dioxide Level 28 MMOL/L (21-32) Anion Gap 7 mmol/L (5-15) Blood Urea Nitrogen 15 mg/dL (7-18) Creatinine 0.8 MG/DL (0.55-1.30) Estimat Glomerular Filtration Rate > 60 mL/min (>60) Glucose Level 148 MG/DL (74-106) H Uric Acid 2.9 MG/DL (2.6-7.2) Calcium Level 9.0 MG/DL (8.5-10.1) Phosphorus Level 2.5 MG/DL (2.5-4.9) Magnesium Level 2.1 MG/DL (1.8-2.4) Total Bilirubin 0.6 MG/DL (0.2-1.0) Gamma Glutamyl Transpeptidase 616 U/L (5-85) H Aspartate Amino Transf (AST/SGOT) 424 U/L (15-37) H Alanine Aminotransferase (ALT/SGPT) 741 U/L (12-78) H Alkaline Phosphatase 141 U/L (46-116) H Total Protein 7.4 G/DL (6.4-8.2) Albumin 3.0 G/DL (3.4-5.0) L Globulin 4.4 g/dL Albumin/Globulin Ratio 0.7 (1.0-2.7) L Coccidioides Antibody (Comp Fix) Pending Objective HEAD AND NECK: Mild JVD. LUNGS: Decreased breath sounds. CARDIOVASCULAR: Regular S1 and S2 with no gallop. ABDOMEN: Soft. EXTREMITIES: Trace pitting edema. ICD in left subclavian. Yusuf Byrnes MD Apr 01, 2018 15:35
[2018-04-01 16:00] VITALS: BP 129/79
--- NOTE | 2018-04-01 16:22 | NUR ---
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 96.6 HR 59 RR 20 B/P 121/66 4L NC IS: SOLU MEDROL IV FLAGYL IV AZITHROMAX IV PREDNISONE PO LASIX TELE STATUS
[2018-04-01] MEDS: cefTRIAXone 1 GM in D5W 50 ML IVPB SCH (16:50)
--- NOTE | 2018-04-01 19:02 | General Progress Note ---
Assessment/Plan Assessment/Plan Assessment/Plan # Pancytopenia - causes likely multifactorial, could be related to hepatitis, v shock liver, v acute on chronic systolic CHF --> plt trend: 91-->76-->80-->100 --> cards and gi have been consulted --> hepatitis and hiv have been ordered --> us of the abdomen have been ordered as well, currently is negative --> meds have been reviewed --> transfuse as needed, hgb goal >7, and plt goal 20k --> give neupogen if ANC <1500 # Mild hypokalemia --> monitor electrolytes repleted # Abnormal LFTs --> as per gi team, lfts have been reviewed # Suspected congestive hepatopathy --> monitor LFTs --> avoid hepatotoxic meds --> CXR reveals,Worsening bilateral airspace opacities, worse in the right mid to lower lung. Findings worrisome for worsening edema versus pneumonia. # Morbid Obesity --> recommend weight loss once discharged # Reported history of DMII --> on iss, and-Diabetic diet --> a1c goal <7.5 The timing of this note does not necessarily reflect the time of the patient was seen. Greatly appreciate consultation! Subjective Allergies: Coded Allergies: CODEINE (Verified Allergy, Unknown, Itching, 03/26/18) Subjective 03/31: seen by bedside, awake, comfortable, no acute distress. plt trending up , CXR reveals,Worsening bilateral airspace opacities, worse in the right mid to lower lung. Findings worrisome for worsening edema versus pneumonia. 04/01: seen by bedside, awake, comfortable, no acute distress Objective Last 24 Hour Vital Signs Date Time Temp Pulse Resp B/P (MAP) Pulse Ox O2 Delivery O2 Flow Rate FiO2 04/01/18 16:05 61 04/01/18 16:00 98.2 61 18 129/79 (96) 93 04/01/18 12:00 96.6 60 18 121/66 (84) 97 04/01/18 11:54 63 04/01/18 10:57 60 20 98 Nasal Cannula 4.0 36 04/01/18 10:48 63 20 94 Nasal Cannula 4.0 36 04/01/18 09:00 Nasal Cannula 4.0 04/01/18 08:00 98.9 59 18 125/64 (84) 96 04/01/18 07:58 56 04/01/18 07:57 63 04/01/18 07:16 Nasal Cannula 4.0 36 04/01/18 07:16 93 Nasal Cannula 4.0 36 04/01/18 07:16 Nasal Cannula 4.0 36 04/01/18 07:16 Nasal Cannula 4.0 36 04/01/18 04:00 98.0 72 18 139/61 (87) 97 04/01/18 04:00 56 04/01/18 03:19 62 20 98 Nasal Cannula 4.0 36 04/01/18 03:12 60 20 93 Nasal Cannula 4.0 36 04/01/18 00:00 59 04/01/18 00:00 96.8 61 18 140/77 (98) 98 03/31/18 22:39 65 20 97 Nasal Cannula 4.0 36 03/31/18 22:37 61 18 Nasal Cannula 4.0 36 03/31/18 22:32 62 20 93 Nasal Cannula 4.0 36 03/31/18 21:00 Nasal Cannula 4.0 03/31/18 20:04 94 Nasal Cannula 4.0 36 03/31/18 20:04 Nasal Cannula 4.0 36 03/31/18 20:04 Nasal Cannula 4.0 36 03/31/18 20:03 Nasal Cannula 4.0 36 03/31/18 20:00 97.5 58 18 133/76 (95) 96 03/31/18 20:00 58 Intake and Output 03/31/18 04/01/18 19:00 07:00 Intake Total 420 ml 220 ml Output Total 225 ml 350 ml Balance 195 ml -130 ml Intake Oral 420 ml 120 ml IV Total 100 ml Output Urine Total 225 ml 350 ml Laboratory Tests 04/01/18 06:10: White Blood Count 7.2#, Red Blood Count 3.78L, Hemoglobin 11.8L, Hematocrit 35.0L, Mean Corpuscular Volume 93, Mean Corpuscular Hemoglobin 31.2H, Mean Corpuscular Hemoglobin Concent 33.7, Red Cell Distribution Width 13.7, Platelet Count 138L, Mean Platelet Volume 9.8, Neutrophils (%) (Auto) , Lymphocytes (%) ( Auto) , Monocytes (%) (Auto) , Eosinophils (%) (Auto) , Basophils (%) (Auto) , Differential Total Cells Counted 100, Neutrophils % (Manual) 81H, Lymphocytes % (Manual) 8L, Monocytes % (Manual) 10, Eosinophils % (Manual) 0, Basophils % ( Manual) 0, Band Neutrophils 1, Platelet Estimate DecreasedL, Platelet Morphology Normal, Red Blood Cell Morphology Normal, Sodium Level 139, Potassium Level 3.7, Chloride Level 104, Carbon Dioxide Level 28, Anion Gap 7, Blood Urea Nitrogen 15, Creatinine 0.8, Estimat Glomerular Filtration Rate > 60 , Glucose Level 148H, Uric Acid 2.9, Calcium Level 9.0, Phosphorus Level 2.5, Magnesium Level 2.1, Total Bilirubin 0.6, Gamma Glutamyl Transpeptidase 616H, Aspartate Amino Transf (AST/SGOT) 424H, Alanine Aminotransferase (ALT/SGPT) 741H , Alkaline Phosphatase 141H, Total Protein 7.4, Albumin 3.0L, Globulin 4.4, Albumin/Globulin Ratio 0.7L, Coccidioides Antibody (Comp Fix) [Pending] Height (Feet): 5 Height (Inches): 0.00 Weight (Pounds): 205 Objective Physical Exam General Appearance: no apparent distress, alert HEENT: normocephalic Neck: normal alignment, supple Respiratory/Chest: no respiratory distress, other - bibasilar rales Cardiovascular/Chest: normal rate, regular rhythm, regularly irregular Abdomen: normal bowel sounds, non tender, soft Extremities: normal range of motion, non-tender Skin Exam: normal pigmentation 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
--- NOTE | 2018-04-01 19:31 | NUR ---
HAND-OFF: Report given to FRIDA Estrada.
--- NOTE | 2018-04-01 19:35 | NUR ---
NURSE NOTES: Report received from FRIDA Quintero. Pt is lying comfortably in semi-fowlers with no signs of distress. Pt is A+Ox4 and denies pain/ SOB. IV site is patent, intact, and saline locked. Respirations are even and unlabored on room air. Bed is at lowest position, brakes engaged, siderails x2, bed alarm on, and call light within reach. Huizar catheter is in place, patent, and draining to gravity at foot of bed. Pt is in stable condition at this time. Will continue to monitor.
[2018-04-01 20:00] VITALS: BP 118/75
[2018-04-01] MEDS ORDERED: TraZODone 50mg tab ORAL SCH (21:00)
[2018-04-02] VITALS: BP 119/77
[2018-04-02] MEDS: traMADol 50mg tab ORAL PRN (00:02)
[2018-04-02 04:00] VITALS: BP 119/68
[2018-04-02] MEDS: NovoLOG Insulin Flexpen SUBQ SCH ×2 (06:18→12:25)
--- NOTE | 2018-04-02 07:10 | NUR ---
NURSE NOTES: I received the patient awake and resting in bed. Patient alert and oriented x4. Bed in the lowest position and call light within reach. Patient does not display any signs of distress or SOB.
--- NOTE | 2018-04-02 07:14 | NUR ---
HAND-OFF: Report given to FRIDA Quintero. Pt is in stable condition; plan of care endorsed.
[2018-04-02 07:57] LABS: BASOPHILS % (AUTO) 0.5 % (0.0-2.0); EOSINOPHILS % (AUTO) 0.1 % (0.0-3.0); HEMATOCRIT 34.8 % (37.0-47.0); HEMOGLOBIN 11.5 G/DL (12.0-16.0); LYMPHOCYTES % (AUTO) 8.3 % (20.0-45.0); MEAN CORPUSCULAR VOLUME 93 FL (80-99); MONOCYTES % (AUTO) 6.2 % (1.0-10.0); NEUTROPHILS % (AUTO) 84.9 % (45.0-75.0); PLATELET COUNT 178 K/UL (150-450); RED BLOOD COUNT 3.73 M/UL (4.20-5.40); RED CELL DISTRIBUTION WIDTH 13.8 % (11.6-14.8); WHITE BLOOD COUNT 6.8 K/UL (4.8-10.8)
[2018-04-02 08:00] VITALS: BP 155/88
[2018-04-02 08:10] LABS: ANION GAP 10 mmol/L (5-15); BLOOD UREA NITROGEN 20 mg/dL (7-18); CARBON DIOXIDE 25 MMOL/L (21-32); CHLORIDE 105 MMOL/L (98-107); CREATININE 0.8 MG/DL (0.55-1.30); POTASSIUM 3.6 MMOL/L (3.5-5.1); SODIUM 140 MMOL/L (136-145)
[2018-04-02] MEDS: Oseltamivir 75mg cap ORAL SCH (08:26)
[2018-04-02] MEDS ORDERED: Furosemide 40mg tab ORAL SCH (09:00)
--- NOTE | 2018-04-02 09:59 | NUR ---
RADIOLOGY DEPT CHEST X-RAY DONE.-P.DYE
--- NOTE | 2018-04-02 10:07 | Diagnostic Imaging Report ---
Indication: Cough Technique: One view of the chest Comparison: March 30, 2018 Findings: Patient is rotated to the right. Bilateral right greater than left parenchymal disease appears improved but persists to some extent. The heart remains enlarged. The pleural spaces are grossly clear. Left chest AICD is again demonstrated Impression: Improved but persistent bilateral infiltrates versus edema, over 3 days
--- NOTE | 2018-04-02 10:44 | GI Progress Note ---
Assessment/Plan Problems: (1) Shock liver ICD Codes: K72.00 - Acute and subacute hepatic failure without coma SNOMED: 217194374 (2) CHF (congestive heart failure) ICD Codes: I50.9 - Heart failure, unspecified SNOMED: 15279032 Qualifiers: Qualified Codes: I50.9 - Heart failure, unspecified (3) Transaminitis ICD Codes: R74.0 - Nonspecific elevation of levels of transaminase and lactic acid dehydrogenase [LDH] SNOMED: 035040179, 609215092 Status: stable Status Narrative Discussed with Dr. Pate Assessment/Plan Negative abdominal ultrasound Most likely liver shock due to ischemia Hepatitis panel to rule out any viral cause >> negative utox r/o drug induced >> negative Will consider autoimmune markers if necessary okay to advance diet trend LFTs, downtrending fu pulmonary recs follow labs dc planning The patient was seen and examined at bedside and all new and available data was reviewed in the patients chart. I agree with the above findings, impression and plan. (Patient seen earlier today. Signature stamp does not reflect patient encounter time.). - Salvador Pate MD Subjective Subjective Still has complaint of shortness of breath Overall feels better Denies any abdominal pain, denies any nausea or vomiting Objective Last 24 Hour Vital Signs Date Time Temp Pulse Resp B/P (MAP) Pulse Ox O2 Delivery O2 Flow Rate FiO2 04/02/18 09:00 Room Air 04/02/18 08:00 97.7 76 155/88 (110) 04/02/18 07:37 58 04/02/18 04:00 97.2 60 18 119/68 (85) 93 04/02/18 03:24 56 04/02/18 00:00 96.6 60 17 119/77 (91) 94 04/01/18 23:25 63 04/01/18 21:00 Room Air 04/01/18 20:19 60 04/01/18 20:00 97.5 60 18 118/75 (89) 93 04/01/18 16:05 61 04/01/18 16:00 98.2 61 18 129/79 (96) 93 04/01/18 12:00 96.6 60 18 121/66 (84) 97 04/01/18 11:54 63 04/01/18 10:57 60 20 98 Nasal Cannula 4.0 36 04/01/18 10:48 63 20 94 Nasal Cannula 4.0 36 Intake and Output 04/01/18 04/02/18 19:00 07:00 Intake Total 840 ml 300 ml Output Total 250 ml 600 ml Balance 590 ml -300 ml Intake Oral 590 ml 200 ml IV Total 250 ml 100 ml Output Urine Total 250 ml 600 ml # Bowel Movements 1 Laboratory Tests Test 04/02/18 06:40 White Blood Count 6.8 K/UL (4.8-10.8) Red Blood Count 3.73 M/UL (4.20-5.40) L Hemoglobin 11.5 G/DL (12.0-16.0) L Hematocrit 34.8 % (37.0-47.0) L Mean Corpuscular Volume 93 FL (80-99) Mean Corpuscular Hemoglobin 30.8 PG (27.0-31.0) Mean Corpuscular Hemoglobin Concent 33.1 G/DL (32.0-36.0) Red Cell Distribution Width 13.8 % (11.6-14.8) Platelet Count 178 K/UL (150-450) Mean Platelet Volume 9.1 FL (6.5-10.1) Neutrophils (%) (Auto) 84.9 % (45.0-75.0) H Lymphocytes (%) (Auto) 8.3 % (20.0-45.0) L Monocytes (%) (Auto) 6.2 % (1.0-10.0) Eosinophils (%) (Auto) 0.1 % (0.0-3.0) Basophils (%) (Auto) 0.5 % (0.0-2.0) Sodium Level 140 MMOL/L (136-145) Potassium Level 3.6 MMOL/L (3.5-5.1) Chloride Level 105 MMOL/L (98-107) Carbon Dioxide Level 25 MMOL/L (21-32) Anion Gap 10 mmol/L (5-15) Blood Urea Nitrogen 20 mg/dL (7-18) H Creatinine 0.8 MG/DL (0.55-1.30) Estimat Glomerular Filtration Rate > 60 mL/min (>60) Glucose Level 135 MG/DL (74-106) H Calcium Level 9.0 MG/DL (8.5-10.1) Height (Feet): 5 Height (Inches): 0.00 Weight (Pounds): 205 General Appearance: WD/WN, no apparent distress, alert Cardiovascular: normal rate Respiratory/Chest: normal breath sounds, no respiratory distress Abdominal Exam: normal bowel sounds, non tender, soft Extremities: normal range of motion, non-tender Johnny Roth NP Apr 02, 2018 10:44
[2018-04-02] MEDS: LORazepam 1mg tab ORAL PRN (10:46)
[2018-04-02] MEDS ORDERED: AUGMENTIN 875-1 EAC1 ORAL (11:40)
--- NOTE | 2018-04-02 11:52 | Discharge Summary ---
Discharge Summary Hospital Course Date of Admission Mar 26, 2018 at 14:47 Date of Discharge 04/02/18 Admitting Diagnosis chf, pneumonia HPI Anu Post is a 57 year old female who was admitted on Mar 26, 2018 at 14:47 for Congestive Heart Failure,Pneumonia Consultations GI,Cardiology,Nephrology,Pulm Hospital Course Patient was admitted for severe sepsis, acute hypoxic respiratory failure, acute on chronic dCHF, ischemic hepatopathy, SERG Treated with IV antibiotics and Tamiflu although influenza swab was negative with gradual improved RUQ US was negative and patient hepatotoxic meds including amiodarone, Lipitor were stopped #Acute hypoxic respiratory failure, present on admission #Severe sepsis due to multifocal pneumonia, present on admission #CT chest shows Evidence of right middle lobe airspace disease also likely present within posterior basilar aspects of the lower lobes. -continue Augmentin as outpatient -off supplemental oxygen #COPD exacerbation -outpatient prednisone taper #SEGR, creatinine up to 2.5, resolving -fluids stopped -hold all nephrotoxic meds -Nephrology following -check daily BMP #Acute on chronic systolic CHF, resolving #history of atrial fibrillation continue telemetry resume Lasix PO and Eliquis as outpatient 2 gram sodium diet #Mild hypokalemia -resolved #Abnormal LFTs, resolving #Suspected congestive hepatopathy vs ischemic hepatopathy -improved LFTs -RUQ US unremarkable -GI eval appreciated -Eliquis held per pharmacy recs -Tramadol dose reduced per pharmacy recs -Amiodarone held #Morbid Obesity #Reported history of DMII -ISS -Diabetic diet Discharge Discharge Disposition Patient was discharged to home Discharge Diagnoses: (1) Acute respiratory failure with hypoxia (2) Severe sepsis (3) PNA (pneumonia) (4) Acute renal failure Declan Crespo MD Apr 02, 2018 11:52
[2018-04-02 12:00] VITALS: BP 145/76
--- NOTE | 2018-04-02 12:41 | General Progress Note ---
Assessment/Plan Problem List: (1) MDD (major depressive disorder), recurrent episode, moderate ICD Codes: F33.1 - Major depressive disorder, recurrent, moderate SNOMED: 17843638, 403122812 (2) Anxiety disorder ICD Codes: F41.9 - Anxiety disorder, unspecified SNOMED: 372889989 Status: stable Assessment/Plan Ativan prn Lexapro 10mg po qam provided ro/st dc trazodone 50mg po qhs start Remeron 15mg po qhs Subjective Neurologic/Psychiatric: Reports: anxiety, depressed, emotional problems Allergies: Coded Allergies: CODEINE (Verified Allergy, Unknown, Itching, 03/26/18) Subjective didnt sleep last night has more anxiety Objective Last 24 Hour Vital Signs Date Time Temp Pulse Resp B/P (MAP) Pulse Ox O2 Delivery O2 Flow Rate FiO2 04/02/18 12:00 97.9 61 16 145/76 (99) 96 04/02/18 09:00 Room Air 04/02/18 08:00 97.7 76 155/88 (110) 04/02/18 07:37 58 04/02/18 04:00 97.2 60 18 119/68 (85) 93 04/02/18 03:24 56 04/02/18 00:00 96.6 60 17 119/77 (91) 94 04/01/18 23:25 63 04/01/18 21:00 Room Air 04/01/18 20:19 60 04/01/18 20:00 97.5 60 18 118/75 (89) 93 04/01/18 16:05 61 04/01/18 16:00 98.2 61 18 129/79 (96) 93 Intake and Output 04/01/18 04/02/18 19:00 07:00 Intake Total 840 ml 300 ml Output Total 250 ml 600 ml Balance 590 ml -300 ml Intake Oral 590 ml 200 ml IV Total 250 ml 100 ml Output Urine Total 250 ml 600 ml # Bowel Movements 1 Laboratory Tests 04/02/18 06:40: White Blood Count 6.8, Red Blood Count 3.73L, Hemoglobin 11.5L, Hematocrit 34.8L , Mean Corpuscular Volume 93, Mean Corpuscular Hemoglobin 30.8, Mean Corpuscular Hemoglobin Concent 33.1, Red Cell Distribution Width 13.8, Platelet Count 178, Mean Platelet Volume 9.1, Neutrophils (%) (Auto) 84.9H, Lymphocytes ( %) (Auto) 8.3L, Monocytes (%) (Auto) 6.2, Eosinophils (%) (Auto) 0.1, Basophils (%) (Auto) 0.5, Sodium Level 140, Potassium Level 3.6, Chloride Level 105, Carbon Dioxide Level 25, Anion Gap 10, Blood Urea Nitrogen 20H, Creatinine 0.8, Estimat Glomerular Filtration Rate > 60, Glucose Level 135H, Calcium Level 9.0 Height (Feet): 5 Height (Inches): 0.00 Weight (Pounds): 205 General Appearance: alert, moderate distress Neurologic: oriented x 3, responsive, depressed affect Demetir Cooper MD Apr 02, 2018 12:41
--- NOTE | 2018-04-02 13:13 | Cardiac Electrophysiology PN ---
Assessment/Plan Assessment/Plan 1. Exacerbation of CHF due to Diastolic dysfunction. BNP of more than 3000. EF 55%. On Lasix 40 mg po daily. Add Coreg 3.125 bid 2. Status post [employer] defibrillator implantation in 03/2017 3. Cough and hemoptysis. Was on Eliquis at home that was DCed. On Oxygen 7 liter of NC 4. Elevated AST and ALT in the thousands. Hepatitis panel is pending, but could be secondary to hepatic congestion and secondary to congestive heart failure. Off Amiodarone. Levels are down now. 5. Fever, recurrent. On iv Abx per ID and Pulmonary 6. Hypotension and renal failure Cr 2.5. Creatinine normalized to 0.8 DW RN Subjective Subjective In SR. No CP or SOB Objective Last 24 Hour Vital Signs Date Time Temp Pulse Resp B/P (MAP) Pulse Ox O2 Delivery O2 Flow Rate FiO2 04/02/18 12:00 97.9 61 16 145/76 (99) 96 04/02/18 09:00 Room Air 04/02/18 08:00 97.7 76 155/88 (110) 04/02/18 07:37 58 04/02/18 04:00 97.2 60 18 119/68 (85) 93 04/02/18 03:24 56 04/02/18 00:00 96.6 60 17 119/77 (91) 94 04/01/18 23:25 63 04/01/18 21:00 Room Air 04/01/18 20:19 60 04/01/18 20:00 97.5 60 18 118/75 (89) 93 04/01/18 16:05 61 04/01/18 16:00 98.2 61 18 129/79 (96) 93 Intake and Output 04/01/18 04/02/18 19:00 07:00 Intake Total 840 ml 300 ml Output Total 250 ml 600 ml Balance 590 ml -300 ml Intake Oral 590 ml 200 ml IV Total 250 ml 100 ml Output Urine Total 250 ml 600 ml # Bowel Movements 1 Laboratory Tests Test 04/02/18 06:40 White Blood Count 6.8 K/UL (4.8-10.8) Red Blood Count 3.73 M/UL (4.20-5.40) L Hemoglobin 11.5 G/DL (12.0-16.0) L Hematocrit 34.8 % (37.0-47.0) L Mean Corpuscular Volume 93 FL (80-99) Mean Corpuscular Hemoglobin 30.8 PG (27.0-31.0) Mean Corpuscular Hemoglobin Concent 33.1 G/DL (32.0-36.0) Red Cell Distribution Width 13.8 % (11.6-14.8) Platelet Count 178 K/UL (150-450) Mean Platelet Volume 9.1 FL (6.5-10.1) Neutrophils (%) (Auto) 84.9 % (45.0-75.0) H Lymphocytes (%) (Auto) 8.3 % (20.0-45.0) L Monocytes (%) (Auto) 6.2 % (1.0-10.0) Eosinophils (%) (Auto) 0.1 % (0.0-3.0) Basophils (%) (Auto) 0.5 % (0.0-2.0) Sodium Level 140 MMOL/L (136-145) Potassium Level 3.6 MMOL/L (3.5-5.1) Chloride Level 105 MMOL/L (98-107) Carbon Dioxide Level 25 MMOL/L (21-32) Anion Gap 10 mmol/L (5-15) Blood Urea Nitrogen 20 mg/dL (7-18) H Creatinine 0.8 MG/DL (0.55-1.30) Estimat Glomerular Filtration Rate > 60 mL/min (>60) Glucose Level 135 MG/DL (74-106) H Calcium Level 9.0 MG/DL (8.5-10.1) Objective HEAD AND NECK: Mild JVD. LUNGS: Decreased breath sounds. CARDIOVASCULAR: Regular S1 and S2 with no gallop. ABDOMEN: Soft. EXTREMITIES: Trace pitting edema. ICD in left subclavian. Yusuf Byrnes MD Apr 02, 2018 13:13
--- NOTE | 2018-04-02 14:40 | NUR ---
NURSE NOTES: Patient discharged in stable condition. Patient provided with discharge education and instructions. Patient educated about how to take her prednisone and she verbalized understanding. Patient educated about her eating and she verbalized understanding. Patient's IV was removed and the IV site did not display any signs of distress or SOB. Patient maxwell removed before discharge without incident. Patient confirmed she was in possession of her belongings except for the $10 listed and the relief charge nurse and warehouse forklift operator were notified. Patient was provided with a taxi voucher upon discharge. Patient was transported to the [facility] via a wheelchair and the taxi was waiting for her. Patient was in stable condition upon DC.
[2018-04-02] MEDS ORDERED: NS 275ml ONE (14:43)
--- NOTE | 2018-04-02 14:46 | Nephrology Progress Note ---
Assessment/Plan Problem List: (1) Acute renal failure (2) Shock liver (3) Obesity (4) Pacemaker Assessment Acute renal failure- rsolved Elevated liver enzymes improving Low BP Pneumonia Atrial Fib Pacer COPD Obesity Plan DC Diuretics Huizar Urine studies Fluid challenge watch for CHF Sxs monitor renal parameters DC Zithromax if possible? due to high LFTs ?? tapering steroids DC planning Subjective ROS Limited/Unobtainable: No Interval Events/Complaints seen at 9.30 am Objective Objective Last 24 Hour Vital Signs Date Time Temp Pulse Resp B/P (MAP) Pulse Ox O2 Delivery O2 Flow Rate FiO2 04/02/18 12:00 97.9 61 16 145/76 (99) 96 04/02/18 11:38 61 04/02/18 09:00 Room Air 04/02/18 08:00 97.7 76 155/88 (110) 04/02/18 07:37 58 04/02/18 04:00 97.2 60 18 119/68 (85) 93 04/02/18 03:24 56 04/02/18 00:00 96.6 60 17 119/77 (91) 94 04/01/18 23:25 63 04/01/18 21:00 Room Air 04/01/18 20:19 60 04/01/18 20:00 97.5 60 18 118/75 (89) 93 04/01/18 16:05 61 04/01/18 16:00 98.2 61 18 129/79 (96) 93 Intake and Output 04/01/18 04/02/18 19:00 07:00 Intake Total 840 ml 300 ml Output Total 250 ml 600 ml Balance 590 ml -300 ml Intake Oral 590 ml 200 ml IV Total 250 ml 100 ml Output Urine Total 250 ml 600 ml # Bowel Movements 1 Laboratory Tests 04/02/18 06:40: White Blood Count 6.8, Red Blood Count 3.73L, Hemoglobin 11.5L, Hematocrit 34.8L , Mean Corpuscular Volume 93, Mean Corpuscular Hemoglobin 30.8, Mean Corpuscular Hemoglobin Concent 33.1, Red Cell Distribution Width 13.8, Platelet Count 178, Mean Platelet Volume 9.1, Neutrophils (%) (Auto) 84.9H, Lymphocytes ( %) (Auto) 8.3L, Monocytes (%) (Auto) 6.2, Eosinophils (%) (Auto) 0.1, Basophils (%) (Auto) 0.5, Sodium Level 140, Potassium Level 3.6, Chloride Level 105, Carbon Dioxide Level 25, Anion Gap 10, Blood Urea Nitrogen 20H, Creatinine 0.8, Estimat Glomerular Filtration Rate > 60, Glucose Level 135H, Calcium Level 9.0 Height (Feet): 5 Height (Inches): 0.00 Weight (Pounds): 205 General Appearance: no apparent distress Objective no change Elliot Figueroa MD Apr 02, 2018 14:46
--- NOTE | 2018-04-02 17:29 | General Progress Note ---
Assessment/Plan Assessment/Plan Assessment/Plan # Pancytopenia - causes likely multifactorial, could be related to hepatitis, v shock liver, v acute on chronic systolic CHF --> plt trend: 91-->76-->80-->100 --> cards and gi have been consulted --> hepatitis and hiv have been ordered --> us of the abdomen have been ordered as well, currently is negative --> meds have been reviewed --> transfuse as needed, hgb goal >7, and plt goal 20k --> give neupogen if ANC <1500 # Mild hypokalemia --> monitor electrolytes repleted # Abnormal LFTs --> as per gi team, lfts have been reviewed # Suspected congestive hepatopathy --> monitor LFTs --> avoid hepatotoxic meds --> CXR reveals,Worsening bilateral airspace opacities, worse in the right mid to lower lung. Findings worrisome for worsening edema versus pneumonia. # Morbid Obesity --> recommend weight loss once discharged # Reported history of DMII --> on iss, and-Diabetic diet --> a1c goal <7.5 The timing of this note does not necessarily reflect the time of the patient was seen. Greatly appreciate consultation! Subjective Constitutional: Denies: no symptoms, chills, diaphoresis, fever, malaise, weakness, other HEENT: Denies: no symptoms, eye pain, blurred vision, tearing, double vision, ear pain, ear discharge, nose pain, nose congestion, throat pain, throat swelling, mouth pain, mouth swelling, other Cardiovascular: Denies: no symptoms, chest pain, edema, irregular heart rate, lightheadedness, palpitations, syncope, other Respiratory: Denies: no symptoms, cough, orthopnea, shortness of breath, SOB with excertion, SOB at rest, sputum, stridor, wheezing, other Gastrointestinal/Abdominal: Denies: no symptoms, abdomen distended, abdominal pain, black stools, tarry stools, blood in stool, constipated, diarrhea, difficulty swallowing, nausea, poor appetite, poor fluid intake, rectal bleeding , vomiting, other Genitourinary: Denies: no symptoms, burning, discharge, frequency, flank pain, hematuria, incontinence, pain, urgency, other Neurologic/Psychiatric: Denies: no symptoms, anxiety, depressed, emotional problems, headache, numbness, paresthesia, pre-existing deficit, seizure, tingling, tremors, weakness, other Endocrine: Denies: no symptoms, excessive sweating, flushing, intolerance to cold, intolerance to heat, increased hunger, increased thirst, increased urine, unexplained weight gain, unexplained weight loss, other Hematologic/Lymphatic: Denies: no symptoms, anemia, easy bleeding, easy bruising, other Allergies: Coded Allergies: CODEINE (Verified Allergy, Unknown, Itching, 03/26/18) Subjective 03/31: seen by bedside, awake, comfortable, no acute distress. plt trending up , CXR reveals,Worsening bilateral airspace opacities, worse in the right mid to lower lung. Findings worrisome for worsening edema versus pneumonia. 04/01: seen by bedside, awake, comfortable, no acute distress 04/02: pt is awake, comfortable, no acute distress Objective Last 24 Hour Vital Signs Date Time Temp Pulse Resp B/P (MAP) Pulse Ox O2 Delivery O2 Flow Rate FiO2 04/02/18 12:00 97.9 61 16 145/76 (99) 96 04/02/18 11:38 61 04/02/18 09:00 Room Air 04/02/18 08:00 97.7 76 155/88 (110) 04/02/18 07:37 58 04/02/18 04:00 97.2 60 18 119/68 (85) 93 04/02/18 03:24 56 04/02/18 00:00 96.6 60 17 119/77 (91) 94 04/01/18 23:25 63 04/01/18 21:00 Room Air 04/01/18 20:19 60 04/01/18 20:00 97.5 60 18 118/75 (89) 93 Intake and Output 04/01/18 04/02/18 18:59 06:59 Intake Total 840 ml 300 ml Output Total 250 ml 600 ml Balance 590 ml -300 ml Intake Oral 590 ml 200 ml IV Total 250 ml 100 ml Output Urine Total 250 ml 600 ml # Bowel Movements 1 Laboratory Tests 04/02/18 06:40: White Blood Count 6.8, Red Blood Count 3.73L, Hemoglobin 11.5L, Hematocrit 34.8L , Mean Corpuscular Volume 93, Mean Corpuscular Hemoglobin 30.8, Mean Corpuscular Hemoglobin Concent 33.1, Red Cell Distribution Width 13.8, Platelet Count 178, Mean Platelet Volume 9.1, Neutrophils (%) (Auto) 84.9H, Lymphocytes ( %) (Auto) 8.3L, Monocytes (%) (Auto) 6.2, Eosinophils (%) (Auto) 0.1, Basophils (%) (Auto) 0.5, Sodium Level 140, Potassium Level 3.6, Chloride Level 105, Carbon Dioxide Level 25, Anion Gap 10, Blood Urea Nitrogen 20H, Creatinine 0.8, Estimat Glomerular Filtration Rate > 60, Glucose Level 135H, Calcium Level 9.0 Height (Feet): 5 Height (Inches): 0.00 Weight (Pounds): 205 Objective Physical Exam General Appearance: no apparent distress, alert HEENT: normocephalic Neck: normal alignment, supple Respiratory/Chest: no respiratory distress, other - bibasilar rales Cardiovascular/Chest: normal rate, regular rhythm, regularly irregular Abdomen: normal bowel sounds, non tender, soft Extremities: normal range of motion, non-tender Skin Exam: normal pigmentation 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
[2018-04-03] MEDS ORDERED: Metoprolol Succinate XL 25mg tab ORAL SCH (09:00)
== END 2018-04-02 14:44 | disposition home or self-care (01) | DRG 871 ==
LOC: EMR 12:55 → EDBEDREQ 14:40 → 2E 14:47 → EDBEDREQ 15:29 → EDBEDREQSVC 15:43
DX: A41.9 Sepsis, unspecified organism (principal); R65.21 Severe sepsis with septic shock; I50.23 Acute on chronic systolic (congestive) heart failure; J18.9 Pneumonia, unspecified organism; K72.00 Acute and subacute hepatic failure without coma; J44.1 Chronic obstructive pulmonary disease with (acute) exacerbation; J44.0 Chronic obstructive pulmonary disease with (acute) lower respiratory infection; F33.9 Major depressive disorder, recurrent, unspecified; D61.818 Other pancytopenia; N17.9 Acute kidney failure, unspecified; Z68.41 Body mass index [BMI] 40.0-44.9, adult; E87.6 Hypokalemia; Z86.711 Personal history of pulmonary embolism; Z95.810 Presence of automatic (implantable) cardiac defibrillator; F41.9 Anxiety disorder, unspecified; R74.0 Nonspecific elevation of levels of transaminase and lactic acid dehydrogenase [LDH]; E66.01 Morbid (severe) obesity due to excess calories
CPT/HCPCS: 36415; 36600; 71045; 71250; 76700; 80048; 80053; 80061; 80162; 80307; 82105; 82140; 82164; 82248; 82550; 82803; 82962; 82977; 83615; 83735; 83880; 84100; 84300; 84443; 84484; 84550; 85007; 85025; 85610; 85730; 86140; 86635; 86644; 86665; 86703; 86705; 86709; 86710; 86713; 86738; 86803; 87040; 87070; 87205; 87340; 87496; 93005; 93306; 94640; 94664; 94760; 96374; 96375; 99285; J1815; J7620